=== PATIENT | female | born 1940 | race Two or more races ===

== ENCOUNTER → 2017-09-01 | Outpatient (CLI) | payer MEDICARE, BC ==
--- NOTE | 2017-09-02 07:01 | USB ---
Reason for exam: clinical finding. Indicated problem(s): pain in the left breast. Physical Findings: Nurse Summary: Left breast palpable lateral 3 o'clock 0.5 x 1cm movable, tender (nurse ts). US Breast LT Left breast ultrasound includes all four quadrants, the retroareolar region and axilla. Finding demonstrates a 0.4 x 0.4 x 0.3cm oval, mixed lesion at 2 o'clock, multiple oval nodes at 3 o'clock BB, a 0.3 x 0.3 x 0.2cm oval, too small to characterize lesion at 4 o'clock and a duct estasia at post nipple. These results were verbally communicated with the patient and result sheet given to the patient on 09/01/17. ASSESSMENT: Benign, BI-RAD 2 RECOMMENDATION: Routine screening mammogram of both breasts. Back on schedule. Due now, patient was due March 2017. Manage patient on a clinical basis.
== END | disposition home or self-care (01) ==
LOC: RADUSWWP 15:21
PROVIDERS: ATTEND Surgery
DX: N64.4 Mastodynia (principal)

== ENCOUNTER → 2018-06-07 | Outpatient (CLI) | payer MEDICARE, BC ==
--- NOTE | 2018-06-07 13:55 | MR ---
EXAMINATION TYPE: MR brain wo/w con DATE OF EXAM: 06/07/2018 COMPARISON: None HISTORY: SYNCOPE TECHNIQUE: Multiplanar, multisequence images of the brain and brainstem is performed without and with IV contras t, utilizing 11 mL intravenous Gadavist . FINDINGS: Diffusion weighted images demonstrate no evidence of a recent infarct or other diffusion ab normality. There is no extra-axial fluid collection. There are scattered and confluent hyperintensit ies on inversion recovery T2-weighted sequences within the periventricular, pericallosal, subcortical and juxtacortical white matter, and within the pavel. Approximately 50 lesions are present. The ventr icular system and cisternal spaces are normal in size and appearance. The brain volume is age approp riate, cortical atrophy is likely age-related. Midline structures demonstrate some possible thinning of the corpus callosum. The craniocervical micheal ction appears within normal limits. Post contrast images demonstrate no abnormal enhancement. The du ral venous sinuses appear patent. The visualized sinuses are clear and the globes are intact. IMPRESSION: Nonspecific white matter demyelination could be due to chronic small vessel ischemic damon ge. Age-related atrophy.
== END ==
LOC: RADMRIMAIN 12:04
PROVIDERS: ATTEND Family Medicine
DX: G31.1 Senile degeneration of brain, not elsewhere classified (principal); D35.2 Benign neoplasm of pituitary gland; G37.8 Other specified demyelinating diseases of central nervous system
CPT/HCPCS: 70553; A9581

== ENCOUNTER → 2018-06-07 | Outpatient (CLI) | payer MEDICARE, BC ==
--- NOTE | 2018-06-07 13:44 | MM ---
Reason for exam: additional evaluation requested from prior study. History: Patient history of other cancer and is nulliparous. Benign excisional biopsy of the left breast, 2007. Physical Findings: Nurse did not find any significant physical abnormalities on exam. MG 3D Diag Mammo W/Cad KD Bilateral CC and MLO view(s) were taken. Technologist: Maribel Ragsdale, RT (R)(M) Prior study comparison: September 01, 2017, left breast US breast LT. The breast tissue is heterogeneously dense. This may lower the sensitivity of mammography. No suspicious abnormality. These results were verbally communicated with the patient and result sheet given to the patient on 06/07/18. ASSESSMENT: Incomplete: need additional imaging evaluation, BI-RAD 0 RECOMMENDATION: Ultrasound of the left breast. (lateral for pain)
--- NOTE | 2018-06-07 13:49 | USB ---
Reason for exam: additional evaluation requested from abnormal screening. History: Patient history of other cancer and is nulliparous. Benign excisional biopsy of the left breast, 2007. US Breast Limited LT Left limited breast ultrasound including focal area of concern, retroareolar and axilla demonstrates a 4 x 2 x 4mm oval, cystic, mixed lesion at 2 o'clock, a 3mm calcification at 3 o'clock, a 3 x 2 x 3mm cystic lesion at 4 o'clock, a 5 x 3 x 3mm irregular, hypoechoic mass at 4 o'clock and duct ectasia. Node noted at left axilla. These results were verbally communicated with the patient and result sheet given to the patient on 06/07/18. ASSESSMENT: Suspicious, BI-RAD 4 RECOMMENDATION: Ultrasound core biopsy of the left breast. Called Dr. Jane with mammographic findings and has scheduled an appointment for the patient for 06/10/18 at 3:[address] Price. PRELIMINARY REPORT CALLED AND FAXED TO DR. PRICE ON 06/07/18.
== END ==
LOC: RADMAMWWP 09:53
PROVIDERS: ATTEND Family Medicine
DX: R92.8 Other abnormal and inconclusive findings on diagnostic imaging of breast (principal)
CPT/HCPCS: 77066; 76642; G0279; 77062

== ENCOUNTER → 2018-06-29 | Day surgery (SDC) | payer MEDICARE, BC ==
[2018-06-29 11:49] VITALS: RESP 16; BMI 43.9
[2018-06-29 13:46] VITALS: BP 106/56; PULSE 60; TEMP 97.9
--- NOTE | 2018-06-29 14:18 | USB ---
EXAMINATION TYPE: US biopsy breast VAD LT, MG diagnostic mammo LT wo CAD DATE OF EXAM: 06/29/2018 CLINICAL HISTORY: R92.8 ABN Mammogram. TECHNIQUE: Ultrasound guided core biopsy of left breast. COMPARISON: 09/01/2017 FINDINGS: The procedure of ultrasound guided core biopsy was explained to the patient. Benefits, alt ernatives, and risks were discussed. An informed consent was then obtained. Preprocedural timeout w as performed. The patient was placed in supine positioning for imaging and for the procedure. The overlying skin w as prepped and draped in usual sterile fashion. 9 cc of lidocaine buffered with bicarbonate was used as anesthetic into the skin and subcutaneous tissue up to a 5 x 3 x 3 mm irregular hypoechoic mass at the 4:00 location within the left breast. Under ultrasound guidance, a 12-gauge vacuum assisted biopsy gun device was used to obtain four sampl es. Following this, a coil-shaped biopsy marker was left in mass. The patient tolerated the procedure well without any immediate complication. The patient was kept in the radiology department for short stay after the procedure and then discharged home in stable condi tion. IMPRESSION: Successful, uncomplicated ultrasound guided core biopsy of an intermediate suspicion 5 mm mass at the 4:00 position in the left breast, full pathology results to follow.
== END ==
LOC: RADUSWWP 11:12
PROVIDERS: ATTEND Surgery
DX: N60.92 Unspecified benign mammary dysplasia of left breast (principal); N60.32 Fibrosclerosis of left breast; Z91.048 Other nonmedicinal substance allergy status
CPT/HCPCS: 88305; 77065; 19083; A4648; J2001

== ENCOUNTER → 2019-05-30 | Outpatient (CLI) | payer MEDICARE, BC ==
--- NOTE | 2019-05-31 07:34 | MM ---
Reason for exam: additional evaluation requested from prior study. Last mammogram was performed 11 months ago. History: Patient is postmenopausal, history of other cancer, and is nulliparous. Benign US biopsy breast VAD LT of the left breast, June 29, 2018. Benign excisional biopsy of the left breast, 2007. Physical Findings: Nurse Summary: less than 0.5cm nodule in the left breast at 3 o'clock (nurse kp). MG 3D Diag Mammo W/Cad LT CC, MLO, and XCCL view(s) were taken of the left breast. Prior study comparison: June 29, 2018, left breast MG diagnostic mammo LT wo CAD. June 07, 2018, bilateral MG 3d diag mammo w/cad KD. The breast tissue is heterogeneously dense. This may lower the sensitivity of mammography. Benign appearing calcifications in the left breast. No suspicious abnormality. Left biopsy marker noted. These results were verbally communicated with the patient and result sheet given to the patient on 05/30/19. ASSESSMENT: Incomplete: need additional imaging evaluation, BI-RAD 0 RECOMMENDATION: Ultrasound of the left breast. (upper outer quadrant regarding pain)
--- NOTE | 2019-05-31 07:36 | USB ---
Reason for exam: clinical finding. History: Patient is postmenopausal, history of other cancer, and is nulliparous. Benign US biopsy breast VAD LT of the left breast, June 29, 2018. Benign excisional biopsy of the left breast, 2007. Indicated problem(s): pain in the left breast. US Breast Limited LT Left limited breast ultrasound including focal area of concern, retroareolar and axilla demonstrates a 0.4 x 0.3 x 0.2cm cystic lesion at 2 o'clock, seen on prior (prior 0.4 x 0.2 x 0.4cm). These results were verbally communicated with the patient and result sheet given to the patient on 05/30/19. ASSESSMENT: Benign, BI-RAD 2 RECOMMENDATION: Routine screening mammogram of both breasts in 1 year.
== END | disposition home or self-care (01) ==
LOC: RADMAMWWP 14:08
PROVIDERS: ATTEND Surgery
DX: N63.20 Unspecified lump in the left breast, unspecified quadrant (principal); R92.8 Other abnormal and inconclusive findings on diagnostic imaging of breast
CPT/HCPCS: 77065; 76642; G0279; 77061

== ENCOUNTER → 2020-09-19 | Outpatient (CLI) | payer MEDICARE ==
--- NOTE | 2020-09-24 08:21 | MM ---
Reason for exam: screening (asymptomatic). Last mammogram was performed 1 year and 4 months ago. History: Patient is postmenopausal, history of other cancer, and is nulliparous. Benign US biopsy breast VAD LT of the left breast, June 29, 2018. Benign excisional biopsy of the left breast, 2007. Physical Findings: A clinical breast exam by your physician is recommended on an annual basis and results should be correlated with mammographic findings. MG 3D Screening Mammo W/Cad Bilateral CC and MLO view(s) were taken. Prior study comparison: May 30, 2019, left breast MG 3d diag mammo w/cad LT. June 07, 2018, bilateral MG 3d diag mammo w/cad DK. The breast tissue is heterogeneously dense. This may lower the sensitivity of mammography. Previous mammotome biopsy in the left breast. A few benign oil cyst calcifications are redemonstrated. No significant changes when compared with prior studies. ASSESSMENT: Benign, BI-RAD 2 RECOMMENDATION: Routine screening mammogram of both breasts in 1 year.
== END | disposition home or self-care (01) ==
LOC: RADMAMWWP 13:09
PROVIDERS: ATTEND Family Medicine
DX: Z12.31 Encounter for screening mammogram for malignant neoplasm of breast (principal)
CPT/HCPCS: 77063; 77067

== ENCOUNTER → 2021-10-31 | Outpatient (CLI) | payer MEDICARE ==
--- NOTE | 2021-11-01 11:50 | MM ---
Reason for exam: screening (asymptomatic). Last mammogram was performed 1 year and 1 month ago. History: Patient is postmenopausal, history of other cancer, and is nulliparous. Benign US biopsy breast VAD LT of the left breast, June 29, 2018. Benign excisional biopsy of the left breast, 2007. Physical Findings: A clinical breast exam by your physician is recommended on an annual basis and results should be correlated with mammographic findings. MG 3D Screening Mammo W/Cad Bilateral CC and MLO view(s) were taken. Prior study comparison: September 19, 2020, bilateral MG 3d screening mammo w/cad. May 30, 2019, left breast MG 3d diag mammo w/cad LT. The breast tissue is heterogeneously dense. This may lower the sensitivity of mammography. Stable benign calcifications. Focal asymmetry upper outer right breast zone B. This finding is changed when compared with previous exams. ASSESSMENT: Incomplete: need additional imaging evaluation, BI-RAD 0 RECOMMENDATION: Special view mammogram of the right breast. If lesion persists on supplemental views, image directed ultrasound is recommended. [facility] will attempt to contact patient to return for supplemental views and ultrasound if indicated.
== END | disposition home or self-care (01) ==
LOC: RADMAMWWP 13:19
PROVIDERS: ATTEND Family Medicine
DX: Z12.31 Encounter for screening mammogram for malignant neoplasm of breast (principal); Z78.0 Asymptomatic menopausal state
CPT/HCPCS: 77063; 77067

== ENCOUNTER → 2021-11-06 | Outpatient (CLI) | payer MEDICARE ==
--- NOTE | 2021-11-07 10:01 | MM ---
Reason for exam: additional evaluation requested from abnormal screening. Last mammogram was performed less than 1 month ago. History: Patient is postmenopausal, history of other cancer, and is nulliparous. Benign US biopsy breast VAD LT of the left breast, June 29, 2018. Benign excisional biopsy of the left breast, 2007. Physical Findings: A clinical breast exam by your physician is recommended on an annual basis and results should be correlated with mammographic findings. MG 3D Work Up W/Cad RT Spot compression CC, spot compression MLO, ML, and LM view(s) were taken of the right breast. Prior study comparison: October 31, 2021, bilateral MG 3d screening mammo w/cad. September 19, 2020, bilateral MG 3d screening mammo w/cad. The breast tissue is heterogeneously dense. This may lower the sensitivity of mammography. Focal asymmetry upper outer quadrant right breast 6cm from nipple measuring 1.2cm. These results were verbally communicated with the patient and result sheet given to the patient on 11/06/21. ASSESSMENT: Incomplete: need additional imaging evaluation, BI-RAD 0 RECOMMENDATION: Ultrasound of the right breast.
--- NOTE | 2021-11-07 10:03 | USB ---
Reason for exam: additional evaluation requested from abnormal screening. History: Patient is postmenopausal, history of other cancer, and is nulliparous. Benign US biopsy breast VAD LT of the left breast, June 29, 2018. Benign excisional biopsy of the left breast, 2007. US Breast Workup Limited RT Right limited breast ultrasound including focal area of concern, retroareolar and axilla demonstrates no cystic or solid lesion seen. Scanned 9-12 o'clock dense tissue. These results were verbally communicated with the patient and result sheet given to the patient on 11/06/21. ASSESSMENT: Probably benign, BI-RAD 3 RECOMMENDATION: Follow-up diagnostic mammogram of the right breast in 6 months.
== END | disposition home or self-care (01) ==
LOC: RADMAMWWP 14:03
PROVIDERS: ATTEND Family Medicine
DX: R92.8 Other abnormal and inconclusive findings on diagnostic imaging of breast (principal); Z78.0 Asymptomatic menopausal state
CPT/HCPCS: 77065; 76642; G0279; 77061

== ENCOUNTER 2022-04-10 14:15 | Inpatient (IN) | payer MEDICARE ==
[2022-04-10] MEDS ORDERED: SODIUM CHLORIDE 0.9% 500 ML 500 ML IV STA ×2 (14:40→18:24)
[2022-04-10 15:02] LABS: Partial Thromboplastin Time 27.7 sec (22.0-30.0); Prothrombin Time 11.2 sec (9.0-12.0)
[2022-04-10 15:05] LABS: Albumin 4.6 g/dL (3.5-5.0); Calcium 8.9 mg/dL (8.4-10.2); Magnesium 1.5 mg/dL (1.6-2.3); Potassium 4.1 mmol/L (3.5-5.1); Total Bilirubin 0.8 mg/dL (0.2-1.3); Total Protein 6.9 g/dL (6.3-8.2)
[2022-04-10 15:08] LABS: Basophils # (A) 0.1 k/uL (0-0.2); Basophils % (A) 1 %; Eosinophils # (A) 0.3 k/uL (0-0.7); Eosinophils % (A) 4 %; HCT 36.3 % (34.0-46.0); Lymphocytes # (A) 1.6 k/uL (1.0-4.8); Lymphocytes % (A) 23 %; MCH 30.4 pg (25.0-35.0); MCHC 33.1 g/dL (31.0-37.0); Mean Platelet Volume 11.1; Monocytes # (A) 0.3 k/uL (0-1.0); Monocytes % (A) 4 %; Neutrophils # (A) 4.7 k/uL (1.3-7.7); Neutrophils % (A) 68 %; Platelet Count 226 k/uL (150-450); RBC 3.95 m/uL (3.80-5.40); RDW 13.8 % (11.5-15.5)
--- NOTE | 2022-04-10 15:38 | ED ---
Weakness HPI - General Source: patient, RN notes reviewed Mode of arrival: ambulatory Limitations: no limitations <Mahesh Rosario - Last Filed: 04/10/22 15:37> <Jose L Ramirez - Last Filed: 04/10/22 18:32> - General Chief complaint: Weakness Stated complaint: dizziness,falls Time Seen by Provider: 04/10/22 14:30 - History of Present Illness Initial comments: 82-year-old female presents emergency Department via EMS chief complaint of fall. Patient has felt very weak today, fell over she's unsure how this happe trey. Denies having any LOC. She did strike her head as you any blood thinners. Patient states she has no extremity injury she denies chest pain or shortness breath this time she has any recent medication changes no fevers or chills no cough or cold like symptoms. (Mahesh Rosario) Patient overall is not a great historian. Daughter shows up later and relates that patient has been very weak over the past 3 days. She apparently has had some slight confusion at times as well. Daughter states that her speech seems minimally slurred as well. This seems to be progressively worsening. She did fall twice today and apparently did hit her head. She does relate urinary fr equency related to her diabetes insipidus which is chronic for her. She denies any dysuria or other urinary symptoms. (Jose L Ramirez) - Related Data Home Medications Medication Instructions Recorded Confirmed Desmopressin Acetate [DDAVP] 0.3 mg PO HS 06/16/18 06/29/18 Gabapentin 800 mg PO BID 06/16/18 06/29/18 Levothyroxine Sodium [Synthroid] 75 mcg PO DAILY 06/16/18 06/29/18 Simvastatin 80 mg PO DAILY 06/16/18 06/29/18 buPROPion [Wellbutrin] 300 mg PO DAILY 06/16/18 06/29/18 cloNIDine HCL [Catapres] 0.1 mg PO HS 06/16/18 06/29/18 metFORMIN HCL [Glucophage] 1,000 mg PO DAILY 06/16/18 06/29/18 Allergies Allergy/AdvReac Type Severity Reaction Status Date / Time adhesive tape Allergy Rash/Hives Verified 04/10/22 14:25 Review of Systems ROS Other: All systems not noted in ROS Statement are negative. <Mahesh Rosario - Last Filed: 04/10/22 15:37> ROS Other: All systems not noted in ROS Statement are negative. <Jose L Ramirez - Last Filed: 04/10/22 18:32> ROS Statement: Those systems with pertinent positive or pertinent negative responses have been documented in the HPI. 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 thyroidectomy, benign excisional left breast 2008 Past Anesthesia/Blood Transfusion Reactions: No Reported Reaction Past Psychological History: No Psychological Hx Reported Smoking Status: Never smoker Past Alcohol Use History: None Reported Past Drug Use History: None Reported <Mahesh Rosario Shabnam - Last Filed: 04/10/22 15:37> General Exam Limitations: no limitations General appearance: alert, in no apparent distress Head exam: Present: atraumatic, normocephalic, normal inspection Eye exam: Present: normal appearance, PERRL, EOMI. Absent: scleral icterus, conjunctival injection, periorbital swelling ENT exam: Present: normal exam, normal oropharynx, mucous membranes moist Neck exam: Present: normal inspection. Absent: tenderness, meningismus, full ROM (Patient in c-collar), lymphadenopathy Respiratory exam: Present: normal lung sounds bilaterally. Absent: respiratory distress, wheezes, rales, rhonchi, stridor Cardiovascular Exam: Present: normal rhythm, bradycardia, normal heart sounds. Absent: regular rate, systolic murmur, diastolic murmur, rubs, gallop, clicks GI/Abdominal exam: Present: soft, normal bowel sounds. Absent: distended, tenderness, guarding, rebound, rigid Neurological exam: Present: alert, oriented X3, CN II-XII intact, reflexes normal. Absent: motor sensory deficit Skin exam: Present: warm, dry, intact, normal color. Absent: rash <Mahesh Rosario Shabnam - Last Filed: 04/10/22 15:37> Course Vital Signs 04/10/22 04/10/22 14:19 16:57 Temperature 98.0 F Pulse Rate 53 L 49 L Respiratory 18 16 Rate Blood Pressure 113/67 127/75 O2 Sat by Pulse 98 95 Oximetry Medical Decision Making - Lab Data Result diagrams: 04/10/22 14:44 04/10/22 14:44 <Mahesh Rosario - Last Filed: 04/10/22 15:37> - Lab Data Result diagrams: 04/10/22 14:44 04/10/22 14:44 <Jose L Ramirez - Last Filed: 04/10/22 18:32> - Medical Decision Making The patient was seen and examined. Report was received from physician urgent care physician assistant as well. The EKG shows what I believe is a junctional bradycardia at a rate of 52. There are multiple PVCs noted. Upon watching her on the heart monitor, her heart rate is ranging between about 40 and 45 bpm. It does not appear as though she is on any beta blockers or calcium channel blockers. She does have evidence of urinary tract infection as well as multiple electrolyte abnormali ties on laboratory analysis. Rocephin is initiated. IV fluid hydration is given. Repeat EKG is ordered. It appears as though she will require admission to the hospital for further treatment. It is felt as though she has a urinary tract infection and this likely is causing her symptomatology. Her computed tomography scan of her brain and cervical spine are negative for any evidence of fracture. The bradycardia certainly could be playing into her weakness and falls as well. Case is discussed with Dr. Jane and he is agreeable with admission with cardiology to consult. (Jose L Ramirez) - Lab Data Lab Results 04/10/22 04/10/22 04/10/22 Range/Units 14:44 14:44 14:44 WBC 7.0 (3.8-10.6) k/uL RBC 3.95 (3.80-5.40) m/uL Hgb 12.0 (11.4-16.0) gm/dL Hct 36.3 (34.0-46.0) % MCV 92.0 (80.0-100.0) fL MCH 30.4 (25.0-35.0) pg MCHC 33.1 (31.0-37.0) g/dL RDW 13.8 (11.5-15.5) % Plt Count 226 (150-450) k/uL MPV 11.1 Neutrophils % 68 % Lymphocytes % 23 % Monocytes % 4 % Eosinophils % 4 % Basophils % 1 % Neutrophils # 4.7 (1.3-7.7) k/uL Lymphocytes # 1.6 (1.0-4.8) k/uL Monocytes # 0.3 (0-1.0) k/uL Eosinophils # 0.3 (0-0.7) k/uL Basophils # 0.1 (0-0.2) k/uL PT 11.2 (9.0-12.0) sec INR 1.0 (<1.2) APTT 27.7 (22.0-30.0) sec Sodium 132 L (137-145) mmol/L Potassium 4.1 (3.5-5.1) mmol/L Chloride 91 L (98-107) mmol/L Carbon Dioxide 29 (22-30) mmol/L Anion Gap 12 mmol/L BUN 23 H (7-17) mg/dL Creatinine 1.09 H (0.52-1.04) mg/dL Est GFR (CKD-EPI)AfAm 55 (>60 ml/min/1.73 sqM) Est GFR (CKD-EPI)NonAf 48 (>60 ml/min/1.73 sqM) Glucose 112 H (74-99) mg/dL Plasma Lactic Acid Evangelist (0.7-2.0) mmol/L Calcium 8.9 (8.4-10.2) mg/dL Magnesium 1.5 L (1.6-2.3) mg/dL Total Bilirubin 0.8 (0.2-1.3) mg/dL AST 69 H (14-36) U/L ALT 40 H (4-34) U/L Alkaline Phosphatase 59 (38-126) U/L Troponin I (0.000-0.034) ng/mL Total Protein 6.9 (6.3-8.2) g/dL Albumin 4.6 (3.5-5.0) g/dL Urine Color Urine Appearance (Clear) Urine pH (5.0-8.0) Ur Specific [place] (1.001-1.035) Urine Protein (Negative) Urine Glucose (UA) (Negative) Urine Ketones (Negative) Urine Blood (Negative) Urine Nitrite (Negative) Urine Bilirubin (Negative) Urine Urobilinogen (<2.0) mg/dL Ur Leukocyte Esterase (Negative) Urine RBC (0-5) /hpf Urine WBC (0-5) /hpf Ur Squamous Epith Cells (0-4) /hpf Urine Mucus (None) /hpf 04/10/22 04/10/22 04/10/22 Range/Units 14:44 14:44 15:38 WBC (3.8-10.6) k/uL RBC (3.80-5.40) m/uL Hgb (11.4-16.0) gm/dL Hct (34.0-46.0) % MCV (80.0-100.0) fL MCH (25.0-35.0) pg MCHC (31.0-37.0) g/dL RDW (11.5-15.5) % Plt Count (150-450) k/uL MPV Neutrophils % % Lymphocytes % % Monocytes % % Eosinophils % % Basophils % % Neutrophils # (1.3-7.7) k/uL Lymphocytes # (1.0-4.8) k/uL Monocytes # (0-1.0) k/uL Eosinophils # (0-0.7) k/uL Basophils # (0-0.2) k/uL PT (9.0-12.0) sec INR (<1.2) APTT (22.0-30.0) sec Sodium (137-145) mmol/L Potassium (3.5-5.1) mmol/L Chloride (98-107) mmol/L Carbon Dioxide (22-30) mmol/L Anion Gap mmol/L BUN (7-17) mg/dL Creatinine (0.52-1.04) mg/dL Est GFR (CKD-EPI)AfAm (>60 ml/min/1.73 sqM) Est GFR (CKD-EPI)NonAf (>60 ml/min/1.73 sqM) Glucose (74-99) mg/dL Plasma Lactic Acid Evangelist 1.0 (0.7-2.0) mmol/L Calcium (8.4-10.2) mg/dL Magnesium (1.6-2.3) mg/dL Total Bilirubin (0.2-1.3) mg/dL AST (14-36) U/L ALT (4-34) U/L Alkaline Phosphatase (38-126) U/L Troponin I <0.012 (0.000-0.034) ng/mL Total Protein (6.3-8.2) g/dL Albumin (3.5-5.0) g/dL Urine Color Yellow Urine Appearance Cloudy H (Clear) Urine pH 5.5 (5.0-8.0) Ur Specific [place] 1.024 (1.001-1.035) Urine Protein Trace H (Negative) Urine Glucose (UA) Negative (Negative) Urine Ketones Negative (Negative) Urine Blood Negative (Negative) Urine Nitrite Negative (Negative) Urine Bilirubin Negative (Negative) Urine Urobilinogen <2.0 (<2.0) mg/dL Ur Leukocyte Esterase Large H (Negative) Urine RBC 5 (0-5) /hpf Urine WBC 12 H (0-5) /hpf Ur Squamous Epith Cells 4 (0-4) /hpf Urine Mucus Rare H (None) /hpf Disposition <Mahesh Rosario - Last Filed: 04/10/22 15:37> Is patient prescribed a controlled substance at d/c from ED?: No Time of Disposition: 18:32 Decision Date: 04/10/22 Decision Time: 18:32 <Jose L Ramirez - Last Filed: 04/10/22 18:32> Clinical Impression: Hyponatremia, Dehydration, Urinary tract infection, Weakness, Multiple falls, Bradycardia, Hypochloremia, Head injury, Hypomagnesemia Disposition: ADMITTED IP TO THIS [facility] Condition: Fair Referrals: Claudette Jane DO [Primary Care Provider] - 1-2 days
--- NOTE | 2022-04-10 15:54 | CT ---
EXAMINATION TYPE: CT cervical spine wo con CT DLP: 556.2 mGycm, Automated exposure control for dose reduction was used. DATE OF EXAM: 04/10/2022 3:49 PM COMPARISON: None. CLINICAL INDICATION:Female, 82 years old with history of fall,trauma; PHH, falls TECHNIQUE: Axial CT images from the skull base to the inferior aspect of T2 we obtained without intra venous contrast. Coronal and sagittal reformatted images were also reviewed. FINDINGS: Fracture: None. Osseous structures: Multilevel degenerative disc disease changes with endplate spurring and disc oste ophyte complex's. Vertebral alignment: Alignment within normal limits. Spinal canal/Neural Foramina: No evidence of significant spinal canal narrowing. No evidence for sign ificant neural foraminal stenosis. Neck soft tissues: Prevertebral soft tissues are within normal limits. Other: The airway is patent. The lung apices are clear. IMPRESSION: 1. No evidence of cervical spine fracture. 2. Mild multilevel degenerative disc disease.
[2022-04-10 16:15] LABS: Appearance,Urine Cloudy (Clear); Bilirubin,Urine Negative (Negative); Blood,Urine Negative (Negative); Color,Urine Yellow; Glucose,Urine (UA) Negative (Negative); Ketones,Urine Negative (Negative); Leukocyte Esterase,Urine Large (Negative); Mucus,Urine Rare /hpf; Nitrite,Urine Negative (Negative); PH, Urine 5.5 (5.0-8.0); Protein,Urine Trace (Negative); RBC,Urine 5 /hpf (0-5); Specific Gravity,Urine 1.024 (1.001-1.035); Squamous Epithelial Cell,Urine 4 /hpf (0-4); Urobilinogen,Urine <2.0 mg/dL (<2.0); WBC,Urine 12 /hpf (0-5)
--- NOTE | 2022-04-10 16:26 | XR ---
EXAMINATION TYPE: XR chest 2V DATE OF EXAM: 04/10/2022 4:10 PM COMPARISON: None TECHNIQUE: XR chest 2V Frontal and lateral views of the chest. CLINICAL INDICATION:Female, 82 years old with history of Weakness; FINDINGS: Lungs/Pleura: There is no evidence of pleural effusion, focal consolidation, or pneumothorax. Pulmonary vascularity: Pulmonary vascular congestion. Heart/mediastinum: Cardiomediastinal silhouette is enlarged and stable. Musculoskeletal: No acute osseous pathology. IMPRESSION: Cardiomegaly and mild pulmonary vascular congestion. Correlate with BNP for congestive heart failure.
--- NOTE | 2022-04-10 16:57 | CT ---
EXAMINATION TYPE: CT brain wo con CT DLP: 1153.4 mGycm, Automated exposure control for dose reduction was used. DATE OF EXAM: 04/10/2022 4:50 PM COMPARISON: MR brain 06/07/2018. CLINICAL INDICATION:Female, 82 years old with history of pain, fall TECHNIQUE: Brain: Axial CT images of the brain were obtained with coronal and sagittal reformats created and rev iewed. Contrast used: None. Oral contrast used: None. FINDINGS: Brain: Extra-axial spaces: No abnormal extra-axial fluid collections. Ventricular system: Dilatation in proportion to cerebral atrophy. Cerebral parenchyma: No acute intraparenchymal hemorrhage or mass effect. The sears-white junction is well differentiated. Scattered hypoattenuating areas are seen within the white matter. Cerebellum: Unremarkable. Mass effect: No evidence of midline shift. Intracranial vasculature: Atherosclerotic calcifications of the intracranial vessels. Soft tissues: Normal. Calvarium/osseous structures: No depressed skull fracture. Paranasal sinuses and mastoid air cells: Mild scattered paranasal sinus disease. Visualized orbits: Orbital contents are intact. IMPRESSION: 1. No acute intracranial process. 2. Nonspecific white matter changes, likely secondary to chronic small vessel ischemic disease.
[2022-04-10] MEDS ORDERED: NALOXONE 0.4 MG/ML 1 ML VIAL IV PRN (19:13)
[2022-04-10] MEDS ORDERED: ONDANSETRON 4 MG/2 ML VIAL IVP PRN (19:13)
[2022-04-10] MEDS ORDERED: ATROPINE SULFATE 0.1 MG/ML 10ML SYRINGE IV PRN (19:18)
[2022-04-10] MEDS: SODIUM CHLORIDE 0.9% 1,000 ML IV SCH (19:59)
[2022-04-10] MEDS: MAGNESIUM SULFATE-D5W PMX 1 GM in DEXTROSE/WATER 1 100ML.BAG IVPB SCH ×2 (19:59→21:08)
[2022-04-10] MEDS: metFORMIN 500 MG TAB PO SCH (23:59)
[2022-04-11] MEDS: buPROPion XL 300 MG TAB.ER.24H PO SCH (06:55)
[2022-04-11] MEDS: DULoxetine HCL 60 MG CAPSULE.DR PO SCH (06:55)
[2022-04-11] MEDS ORDERED: LEVOTHYROXINE 125 MCG TAB PO SCH (08:45)
[2022-04-11] MEDS: SODIUM CHLORIDE 0.9% 1,000 ML IV SCH ×2 (08:56→15:53)
[2022-04-11] MEDS: ENOXAPARIN 40 MG/0.4 ML SYRINGE SQ SCH (08:56)
[2022-04-11] MEDS ORDERED: PANTOPRAZOLE 40 MG/10 ML VIAL IV SCH (09:00)
[2022-04-11 10:13] LABS: T4, Free (Free Thyroxine) <0.07 ng/dL (0.78-2.19)
[2022-04-11 10:29] LABS: Basophils # (A) 0.1 k/uL (0-0.2); Basophils % (A) 1 %; Eosinophils # (A) 0.2 k/uL (0-0.7); Eosinophils % (A) 3 %; HCT 35.3 % (34.0-46.0); HGB 11.7 gm/dL (11.4-16.0); Lymphocytes # (A) 1.4 k/uL (1.0-4.8); Lymphocytes % (A) 21 %; MCH 30.9 pg (25.0-35.0); MCHC 33.2 g/dL (31.0-37.0); Mean Platelet Volume 9.7; Monocytes # (A) 0.3 k/uL (0-1.0); Monocytes % (A) 5 %; Neutrophils # (A) 4.7 k/uL (1.3-7.7); Neutrophils % (A) 70 %; Platelet Count 189 k/uL (150-450); RDW 13.9 % (11.5-15.5); WBC 6.7 k/uL (3.8-10.6)
[2022-04-11 10:41] LABS: Calcium 7.8 mg/dL (8.4-10.2); Magnesium 1.7 mg/dL (1.6-2.3); Potassium 3.3 mmol/L (3.5-5.1)
[2022-04-11] MEDS ORDERED: Magnesium Replacement Protocol 1 EACH MISC MISCELLANE PRN (10:53)
[2022-04-11] MEDS ORDERED: Potassium Replacement Protocol 1 EACH MISC MISCELLANE PRN ×2 (10:53→20:03)
--- NOTE | 2022-04-11 11:17 | CA ---
Transthoracic Echo Report Name: Livia Moura Age: 82 Gender: F : 1940 Exam Date: 04/11/2022 10:10 Exam Location: [facility] Ht (in): 62 Wt (lb): 241 Ordering Physician: Shraddha Luis Attending/Referring Phys: [id number], Janelle Filtrose Crusher Althea Avina, CARLOS ALBERTO Procedure CPT: Indications: LV function, bradycardia Cardiac Hx: Technical Quality: Fair Contrast 1: Total Dose (mL): Contrast 2: Total Dose (mL): MEASUREMENTS (Male / Female) Normal Values 2D ECHO LV Diastolic Diameter PLAX 5.1 cm 4.2 - 5.9 / 3.9 - 5.3 cm LV Systolic Diameter PLAX 3.3 cm IVS Diastolic Thickness 1.1 cm 0.6 - 1.0 / 0.6 - 0.9 cm LVPW Diastolic Thickness 1.1 cm 0.6 - 1.0 / 0.6 - 0.9 cm LV Relative Wall Thickness 0.4 RV Internal Dim ED PLAX 3.4 cm LA Systolic Diameter LX 3.3 cm 3.0 - 4.0 / 2.7 - 3.8 cm LA Volume 45.4 cm??? 18 - 58 / 22 - 52 cm??? M-MODE Aortic Root Diameter MM 2.7 cm DOPPLER AV Peak Velocity 115.4 cm/s AV Peak Gradient 5.3 mmHg MV Area PHT 1.7 cm??? Mitral E Point Velocity 68.0 cm/s Mitral A Point Velocity 86.9 cm/s Mitral E to A Ratio 0.8 MV Deceleration Time 444.7 ms MV E' Velocity 5.9 cm/s Mitral E to MV E' Ratio 11.5 FINDINGS Left Ventricle Left ventricular ejection fraction is estimated at 60-65 %. Left ventricular cavity size normal. Borderline left ventricular hypertrophy. Right Ventricle Mild right ventricular dilatation. No TR unable to estimate the right ventricular systolic pressure. Right Atrium Normal right atrial size. Left Atrium Normal left atrial size. No evidence for an atrial septal defect. Mitral Valve Structurally normal mitral valve. Trace mitral regurgitation. Aortic Valve Trileaflet aortic valve. No aortic valve stenosis or regurgitation. Tricuspid Valve Structurally normal tricuspid valve. Pulmonic Valve Pulmonic valve not well visualized. Pericardium Normal pericardium. No pericardial effusion. Aorta Normal size aortic root and proximal ascending aorta. CONCLUSIONS Normal LV systolic function Previewed by: Dr. Gutierrez Ulrich MD (Electronically Signed) Final Date: 11 April 2022 11:17
[2022-04-11 11:48] LABS: Glucose,Whole Blood 106 mg/dL (70-110)
--- NOTE | 2022-04-11 12:17 | P.CRDCN ---
History of Present Illness History of present illness: HISTORY OF PRESENT ILLNESS: This is a 82-year-old female with a past medical history significant for diabetes insipidus, hypothyroidism, diabetes, hyperlipidemia, and depression. Patient does not follow with a drug safety associate. We have been asked to see the patient in consultation for bradycardia. Patient examined at the bedside. Patient states she presented to the hospital after suffering 2 falls yesterday. Patient states her first fall happened when she was getting out of bed and was walking. She states that she knew she was going to lose her balance and she subsequently fell. She denies losing consciousness. She states later on in the day she was walking to the bathroom and once again began to feel weak and fell. She denies loss of consciousness at that time as well. She denies any chest pain or pressure. Denies any shortness of breath. The patient was found to be bradycardic with a heart rate in the 40s. EKG obtained from her primary care office dated 2013 which demonstrated sinus bradycardia with diffuse T-wave inversions. Telemetry this morning reveals sinus mechanism with heart rate between 5060. * EKG reveals sinus bradycardia with a heart rate of 48. EKG with diffuse T- wave inversions, unchanged from patient's EKG in 2013 from her PCP office * Chest xray cardiomegaly and mild pulmonary vascular congestion. * Laboratory data: WBC 6.7. Hemoglobin 11.6. Platelet count 189. Sodium 131. Potassium 3.3. BUN 15. Creatinine 0.92. Magnesium 1.7. Troponin negative 2. * Current home cardiac medications include Catapres 0.1 mg daily and simvastatin 80 mg daily. * Echocardiogram obtained revealing ejection fraction 60-65%, borderline LVH, mild MR REVIEW OF SYSTEMS: At the time of my exam: CONSTITUTIONAL: Denies fever or chills. HEENT: Denies blurred vision, vision changes, or eye pain. Denies hemoptysis CARDIOVASCULAR: Denies chest pain. Denies orthopnea. Denies PND. Denies palpitations RESPIRATORY: Denies shortness of breath. GASTROINTESTINAL: Denies abdominal pain. Denies nausea or vomiting. HEMATOLOGIC: Denies bleeding disorders. GENITOURINARY: Denies any blood in urine. SKIN: Denies pruitis. Denies rash. PHYSICAL EXAM: VITAL SIGNS: Reviewed. GENERAL: Well-developed in no acute distress. HEENT: Head is normocephalic. Pupils are equal, round. Sclerae anicteric. Mucous membranes of the mouth are moist. Neck supple. No JVD or thyromegaly LUNGS: Respirations even and unlabored. Lungs essentially clear to auscultation bilaterally. HEART: Regular rate and rhythm. S1 and S2 heard. ABDOMEN: Soft. Nondistended. Nontender. EXTREMITIES: Normal range of motion. No clubbing or cyanosis. Peripheral pulses intact. No lower extremity edema NEUROLOGIC: Awake and alert. Oriented x 3. ASSESSMENT: Bradycardia, with no heart block noted, bradycardia dates back to EKG in 2013 from PCP office Status post fall 2 Hyponatremia Hypokalemia Urinary tract infection Hypothyroidism Diabetes Hyperlipidemia Diabetes insipidus Depression PLAN: Continue telemetry monitoring Check TSH Check orthostatic blood pressures Avoid AV dipika blocking agents No indication for pacemaker implantation at this time Further recommendations pending patient's course Nurse practitioner note has been reviewed by physician. Signing provider agrees with the documented findings, assessment, and plan of care. Past Medical History Past Medical History: Cancer, Diabetes Mellitus, Hyperlipidemia, Hypertension, Myocardial Infarction ([place]), Thyroid Disorder Additional Past Medical History / Comment(s): HX. 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 thyroidectomy, benign excisional left breast 2007 Past Anesthesia/Blood Transfusion Reactions: No Reported Reaction Past Psychological History: No Psychological Hx Reported Smoking Status: Never smoker Past Alcohol Use History: None Reported Past Drug Use History: None Reported - Past Family History Mother Family Medical History: Cancer Additional Family Medical History / Comment(s): OVARIAN Father Family Medical History: Myocardial Infarction ([place]) Medications and Allergies Home Medications Medication Instructions Recorded Confirmed Type Desmopressin Acetate [DDAVP] 0.3 mg PO HS 06/16/18 04/11/22 History Simvastatin 80 mg PO DAILY 06/16/18 04/11/22 History metFORMIN HCL [Glucophage] 1,000 mg PO HS 06/16/18 04/11/22 History DULoxetine HCL [Cymbalta] 60 mg PO AC-BRKFST 04/10/22 04/11/22 History Levothyroxine Sodium [Synthroid] 125 mcg PO DAILY 04/10/22 04/11/22 History Pantoprazole Sodium 40 mg PO DAILY 04/10/22 04/11/22 History buPROPion XL [Wellbutrin XL] 300 mg PO AC-BRKFST 04/10/22 04/11/22 History cloNIDine HCL [Catapres] 0.1 mg PO DAILY 04/11/22 04/11/22 History Allergies Allergy/AdvReac Type Severity Reaction Status Date / Time adhesive tape Allergy Rash/Hives Verified 04/10/22 19:47 Physical Exam Vitals: Vital Signs Temp Pulse Pulse Resp BP BP Pulse Ox 04/11/22 04:00 98.4 F 43 L 18 133/78 94 L 04/11/22 02:00 48 L 16 04/11/22 00:00 98.3 F 48 L 16 134/80 93 L 04/10/22 22:53 44 L 16 04/10/22 22:09 97.9 F 44 L 16 127/72 94 L 04/10/22 21:21 97.5 F L 50 L 16 109/70 98 04/10/22 16:57 49 L 16 127/75 95 04/10/22 14:19 98.0 F 53 L 18 113/67 98 Intake and Output 04/10/22 04/11/22 04/11/22 22:59 06:59 14:59 Other: Voiding Method Bedside Commode Bedside Commode Bedpan Bedpan # Voids 1 1 1 # Bowel Movements 1 1 Weight 109.316 kg Results 04/11/22 10:13 04/11/22 10:13 Cardiac Enzymes 04/10/22 04/10/22 04/10/22 Range/Units 14:44 14:44 20:25 AST 69 H (14-36) U/L Troponin I <0.012 <0.012 (0.000-0.034) ng/mL 04/10/22 Range/Units 22:49 AST (14-36) U/L Troponin I <0.012 (0.000-0.034) ng/mL Coagulation 04/10/22 Range/Units 14:44 PT 11.2 (9.0-12.0) sec APTT 27.7 (22.0-30.0) sec CBC 04/10/22 Range/Units 14:44 WBC 7.0 (3.8-10.6) k/uL RBC 3.95 (3.80-5.40) m/uL Hgb 12.0 (11.4-16.0) gm/dL Hct 36.3 (34.0-46.0) % Plt Count 226 (150-450) k/uL Comprehensive Metabolic Panel 04/10/22 Range/Units 14:44 Sodium 132 L (137-145) mmol/L Potassium 4.1 (3.5-5.1) mmol/L Chloride 91 L (98-107) mmol/L Carbon Dioxide 29 (22-30) mmol/L BUN 23 H (7-17) mg/dL Creatinine 1.09 H (0.52-1.04) mg/dL Glucose 112 H (74-99) mg/dL Calcium 8.9 (8.4-10.2) mg/dL AST 69 H (14-36) U/L ALT 40 H (4-34) U/L Alkaline Phosphatase 59 (38-126) U/L Total Protein 6.9 (6.3-8.2) g/dL Albumin 4.6 (3.5-5.0) g/dL Current Medications Generic Name Dose Route Start Last Admin Trade Name Freq PRN Reason Stop Dose Admin Acetaminophen 650 mg 04/10/22 19:13 Acetaminophen Tab 325 Mg Tab PO Q6HR PRN Mild Pain or Fever > 100.5 Atorvastatin Calcium 40 mg 04/11/22 21:00 Atorvastatin 40 Mg Tab PO HS JORGE Atropine Sulfate 0.5 mg 04/10/22 19:18 Atropine Sulfate 0.1 Mg/Ml 10ml Syringe IV Q1H PRN Bradycardia Bupropion HCl 300 mg 04/11/22 07:30 04/11/22 06:55 Bupropion Xl 300 Mg Tab.Er.24h PO 300 mg AC-BRKFST JORGE Administration Desmopressin Acetate 0.3 mg 04/10/22 21:00 04/11/22 00:00 Desmopressin 0.2 Mg Tab PO 0.3 mg HS JORGE Administration Duloxetine HCl 60 mg 04/11/22 07:30 04/11/22 06:55 Duloxetine Hcl 60 Mg Capsule.Dr PO 60 mg AC-BRKFST JORGE Administration Enoxaparin Sodium 40 mg 04/11/22 09:00 Enoxaparin 40 Mg/0.4 Ml Syringe SQ DAILY JORGE Sodium Chloride 1,000 mls @ 100 mls/hr 04/10/22 19:15 04/10/22 19:59 Saline 0.9% IV 100 mls/hr .Q10H JORGE Administration Ceftriaxone Sodium 1 gm/ 50 mls @ 100 mls/hr 04/11/22 09:00 Sodium Chloride IVPB DAILY JORGE Protocol Levothyroxine Sodium 125 mcg 04/11/22 08:45 Levothyroxine 125 Mcg Tab PO DAILY@0630 JORGE Metformin HCl 1,000 mg 04/10/22 21:00 04/10/22 23:59 Metformin 500 Mg Tab PO 1,000 mg HS JORGE Administration Naloxone HCl 0.2 mg 04/10/22 19:13 Naloxone 0.4 Mg/Ml 1 Ml Vial IV Q2M PRN Opioid Reversal Ondansetron HCl 4 mg 04/10/22 19:13 Ondansetron 4 Mg/2 Ml Vial IVP Q8HR PRN Nausea And Vomiting Pantoprazole Sodium 40 mg 04/11/22 09:00 Pantoprazole 40 Mg/10 Ml Vial IV DAILY JORGE Pramipexole Dihydrochloride 0.25 mg 04/11/22 21:00 Pramipexole 0.25 Mg Tab PO HS JORGE Intake and Output 04/10/22 04/11/22 04/11/22 22:59 06:59 14:59 Other: Voiding Method Bedside Commode Bedside Commode Bedpan Bedpan # Voids 1 1 1 # Bowel Movements 1 1 Weight 109.316 kg 04/10/22 14:44 04/10/22 14:44
[2022-04-11] MEDS: MAGNESIUM SULFATE-D5W PMX 1 GM in DEXTROSE/WATER 1 100ML.BAG IVPB SCH ×2 (13:06→15:52)
[2022-04-11] MEDS: POTASSIUM CHLORIDE ER 20 MEQ TAB.ER PO SCH ×3 (13:07→21:46)
[2022-04-11 16:36] LABS: Glucose,Whole Blood 122 mg/dL (70-110)
[2022-04-11] MEDS: DESMOPRESSIN 0.2 MG TAB PO SCH ×2 (20:35)
[2022-04-11] MEDS: metFORMIN 500 MG TAB PO SCH (20:35)
[2022-04-11] MEDS: ATORVASTATIN 40 MG TAB PO SCH (20:35)
[2022-04-11] MEDS: PRAMIPEXOLE 0.25 MG TAB PO SCH (20:35)
[2022-04-11] MEDS: ACETAMINOPHEN TAB 325 MG TAB PO PRN (20:44)
[2022-04-11 20:54] LABS: Glucose,Whole Blood 130 mg/dL (70-110)
--- NOTE | 2022-04-11 23:17 | P.HPIM ---
History of Present Illness H&P Date: 04/11/22 Chief Complaint: falls Livia Moura is a 82 yo F with PMH of diabetes insipidus, hypothyroidism, diabetes, hyperlipidemia and depression who presented to the hospital after suffering 2 falls yesterday. Patient states her first fall happened when she was getting out of bed and was walking. She states that she knew she was going to lose her balance and she subsequently fell. She denies losing consciousness. She states later on in the day she was walking to the bathroom and once again began to feel weak and fell. She denies loss of consciousness at that time as well. She denies any chest pain or pressure. Denies any shortness of breath. The patient was found to be bradycardic with a heart rate in the 40s. Labs showing WBC 7.0, Hgb 12, Cr 1.09, UA with pos LE. TSH >100 and T4 <0.07. Review of Systems All systems: negative Constitutional: Reports weakness, Denies chills, Denies fever Eyes: denies blurred vision, denies pain Ears, nose, mouth and throat: Denies headache, Denies sore throat Cardiovascular: Reports orthopnea, Reports syncope, Denies chest pain, Denies shortness of breath Respiratory: Denies cough Gastrointestinal: Denies abdominal pain, Denies diarrhea, Denies nausea, Denies vomiting Genitourinary: Denies dysuria, Denies hematuria Musculoskeletal: Denies myalgias Integumentary: Denies pruritus, Denies rash Neurological: Denies numbness, Denies weakness Psychiatric: Denies anxiety, Denies depression Endocrine: Denies fatigue, Denies weight change Past Medical History Past Medical History: Cancer, Diabetes Mellitus, Hyperlipidemia, Hypertension, Myocardial Infarction ([place]), Thyroid Disorder Additional Past Medical History / Comment(s): HX. [place] age 34, parotid gland cancer Last Myocardial Infarction Date:: 1973 History of Any Multi-Drug Resistant Organisms: None Reported Past Surgical History: Appendectomy, Breast Surgery, Cholecystectomy, Hysterec jesse Additional Past Surgical History / Comment(s): HX. thyroidectomy, benign excisional left breast 2008 Past Anesthesia/Blood Transfusion Reactions: No Reported Reaction Past Psychological History: No Psychological Hx Reported Smoking Status: Never smoker Past Alcohol Use History: None Reported Past Drug Use History: None Reported - Past Family History Mother Family Medical History: Cancer Additional Family Medical History / Comment(s): OVARIAN Father Family Medical History: Myocardial Infarction ([place]) Medications and Allergies Home Medications Medication Instructions Recorded Confirmed Type Desmopressin Acetate [DDAVP] 0.3 mg PO 06/16/18 04/11/22 History Simvastatin 80 mg PO DAILY 06/16/18 04/11/22 History metFORMIN HCL [Glucophage] 1,000 mg PO 06/16/18 04/11/22 History DULoxetine HCL [Cymbalta] 60 [facility] 04/10/22 04/11/22 History Levothyroxine Sodium [Synthroid] 125 mcg PO DAILY 04/10/22 04/11/22 History Pantoprazole Sodium 40 mg PO DAILY 04/10/22 04/11/22 History buPROPion XL [Wellbutrin XL] 300 mg PO [facility] 04/10/22 04/11/22 History cloNIDine HCL [Catapres] 0.1 mg PO DAILY 04/11/22 04/11/22 History Allergies Allergy/AdvReac Type Severity Reaction Status Date / Time adhesive tape Allergy Rash/Hives Verified 04/10/22 19:47 Physical Exam Vitals: Vital Signs Temp Pulse Pulse Pulse Resp BP BP 04/11/22 20:26 98.2 F 52 L 15 04/11/22 15:50 97.9 F 54 L 16 93/55 04/11/22 13:00 51 L 16 04/11/22 08:40 51 L 55 L 50 L 16 126/68 127/77 04/11/22 04:00 98.4 F 43 L 18 04/11/22 02:00 48 L 16 04/11/22 00:00 98.3 F 48 L 16 04/10/22 22:53 44 L 16 BP Pulse Ox 04/11/22 20:26 139/76 94 L 04/11/22 15:50 95 04/11/22 13:00 113/53 94 L 04/11/22 08:40 118/75 94 L 04/11/22 04:00 133/78 94 L 04/11/22 02:00 04/11/22 00:00 134/80 93 L 04/10/22 22:53 Intake and Output 04/11/22 04/11/22 04/11/22 06:59 14:59 22:59 Intake Total 240 Output Total 300 Balance -60 Intake: Oral 240 Output: Urine 300 Other: Voiding Method Bedside Commode Bedpan # Voids 1 1 # Bowel Movements 1 1 General: well nourished, well developed, NAD. Vitals reviewed Eyes: PERRL, EOMI, conjunctiva normal HENT: normocephalic, mucus membranes moist Neck: supple, no JVD Lungs: normal respiratory effort, no wheezes or rales CV: Regular rate and rhythm, no murmur. Peripheral pulses 2+ Abdomen: soft, nondistended, no organomegaly Lymph: no cervical or axillary LAD Skin: warm and dry. Neuro: A&Ox3, normal mood and affect Results CBC & Chem 7: 04/11/22 10:13 04/11/22 19:19 Labs: Abnormal Lab Results - Last 24 Hours (Table) 04/10/22 04/11/22 04/11/22 Range/Units 14:44 10:13 16:35 Sodium 131 L (137-145) mmol/L Potassium 3.3 L (3.5-5.1) mmol/L Chloride 93 L (98-107) mmol/L Glucose 111 H (74-99) mg/dL POC Glucose (mg/dL) 122 H (70-110) mg/dL Calcium 7.8 L (8.4-10.2) mg/dL TSH >100.000 H (0.465-4.680) mIU/L Free T4 <0.07 L (0.78-2.19) ng/dL 04/11/22 04/11/22 Range/Units 19:19 20:52 Sodium (137-145) mmol/L Potassium 3.4 L (3.5-5.1) mmol/L Chloride (98-107) mmol/L Glucose (74-99) mg/dL POC Glucose (mg/dL) 130 H (70-110) mg/dL Calcium (8.4-10.2) mg/dL TSH (0.465-4.680) mIU/L Free T4 (0.78-2.19) ng/dL Microbiology - Last 24 Hours (Table) 04/10/22 18:52 Blood Culture - Preliminary Blood No Growth after 24 hours 04/10/22 15:38 Urine Culture - Final Urine,Voided Thrombosis Risk Factor Assmnt - Choose All That Apply Each Risk Factor Represents 3 Points: Age 75 years or older Thrombosis Risk Factor Assessment Total Risk Factor Score: 3 Thrombosis Risk Factor Assessment Level: Moderate Risk Assessment and Plan Plan: 1. Syncope and collapse. Cardiology consulted. Echo showing normal LVEF. Suspect related to hypothyroidism. Continue IV fluids and restart synthroid 2. Profound hypothyroidism. Resume synthroid 3. Acute cystitis. Start rocephin and follow urine culture 4. Diabetes insipidis. Continue desmopressin
[2022-04-12] MEDS: SODIUM CHLORIDE 0.9% 1,000 ML IV SCH ×2 (03:41→10:36)
[2022-04-12] MEDS: ACETAMINOPHEN TAB 325 MG TAB PO PRN (04:13)
[2022-04-12] MEDS: DULoxetine HCL 60 MG CAPSULE.DR PO SCH (06:04)
[2022-04-12] MEDS: buPROPion XL 300 MG TAB.ER.24H PO SCH (06:05)
[2022-04-12] MEDS: PANTOPRAZOLE 40 MG TABLET PO SCH (06:05)
[2022-04-12] MEDS: LEVOTHYROXINE 75 MCG TAB PO SCH (06:05)
[2022-04-12 06:21] LABS: Glucose,Whole Blood 93 mg/dL (70-110)
[2022-04-12] MEDS: ENOXAPARIN 40 MG/0.4 ML SYRINGE SQ SCH (07:47)
--- NOTE | 2022-04-12 09:17 | XR ---
EXAMINATION TYPE: AP view pelvis and 2 views each hip DATE OF EXAM: 04/12/2022 COMPARISON: NONE HISTORY: 82-year-old female pain after fall FINDINGS: Mild degenerative joint space narrowing and marginal spurring and both hips. SI joints appear symmetr ic and intact as does the pubic symphysis. There is osteopenia and large body habitus. Allowing for t hese limitations, no displaced fracture is seen. IMPRESSION: Osteopenia and large body habitus limiting the evaluation. No displaced fracture seen. 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
[2022-04-12 09:32] LABS: Calcium 7.8 mg/dL (8.4-10.2); Magnesium 1.7 mg/dL (1.6-2.3); Potassium 3.9 mmol/L (3.5-5.1)
[2022-04-12 12:06] LABS: Glucose,Whole Blood 173 mg/dL (70-110)
[2022-04-12 12:06] LABS: Glucose,Whole Blood 395 mg/dL (70-110)
[2022-04-12 12:40] LABS: Appearance,Urine Clear (Clear); Bilirubin,Urine Negative (Negative); Blood,Urine Negative (Negative); Color,Urine Yellow; Glucose,Urine (UA) Negative (Negative); Ketones,Urine Trace (Negative); Leukocyte Esterase,Urine Negative (Negative); Nitrite,Urine Negative (Negative); Protein,Urine Negative (Negative); Specific Gravity,Urine 1.021 (1.001-1.035); Urobilinogen,Urine <2.0 mg/dL (<2.0)
--- NOTE | 2022-04-12 13:49 | P.PN ---
Subjective Progress Note Date: 04/12/22 This is a 82-year-old female with a past medical history significant for diabetes insipidus, hypothyroidism, diabetes, hyperlipidemia, and depression. Patient does not follow with a design printer balloon. We have been asked to see the patient in consultation for bradycardia. Patient examined at the bedside. Patient states she presented to the hospital after suffering 2 falls yesterday. Patient states her first fall happened when she was getting out of bed and was walking. She states that she knew she was going to lose her balance and she subsequently fell. She denies losing consciousness. She states later on in the day she was walking to the bathroom and once again began to feel weak and fell. She denies loss of consciousness at that time as well. She denies any chest pain or pressure. Denies any shortness of breath. The patient was found to be bradycardic with a heart rate in the 40s. EKG obtained from her primary care office dated 2013 which demonstrated sinus bradycardia with diffuse T-wave inversions. Telemetry this morning reveals sinus mechanism with heart rate between 5060. 04/12/2022 Patient was seen and examined resting comfortably in a chair eating her lunch. Labs yesterday showed a TSH of greater than 100 and a free T4 of less than 0.07. Levothyroxine has been resumed and increased by primary. Echocardiogram with Doppler was done and showed a normal LV systolic function. Heart rate Has been maintaining in the 50s. Objective - Vital Signs Vital signs: Vital Signs Temp 98.1 F 04/12/22 04:10 Pulse 53 L 04/12/22 11:29 Resp 16 04/12/22 11:29 BP 118/63 04/12/22 11:29 Pulse Ox 97 04/12/22 11:29 FiO2 Intake & Output 04/11/22 04/12/22 04/12/22 18:59 06:59 18:59 Intake Total 240 400 240 Output Total 300 250 Balance -60 400 -10 Intake: Intake, IV Titration 400 Amount Sodium Chloride 0.9% 1, 400 000 ml @ 100 mls/hr IV . Q10H JORGE Rx#:[id number] Oral 240 240 Output: Urine 300 250 Other: # Voids 1 # Bowel Movements 1 - Exam HEENT: Head is normocephalic. Pupils are equal, round. Sclerae anicteric. Mucous membranes of the mouth are moist. Neck supple. No JVD or thyromegaly LUNGS: Respirations even and unlabored. Lungs essentially clear to auscultation bilaterally. HEART: Regular rate and rhythm. S1 and S2 heard. ABDOMEN: Soft. Nondistended. Nontender. EXTREMITIES: Normal range of motion. No clubbing or cyanosis. Peripheral pulses intact. No lower extremity edema NEUROLOGIC: Drowsy. Oriented x 3. - Labs CBC & Chem 7: 04/11/22 10:13 04/12/22 08:41 Labs: Abnormal Lab Results - Last 24 Hours (Table) 04/11/22 04/11/22 04/11/22 Range/Units 16:35 19:19 20:52 Sodium (137-145) mmol/L Potassium 3.4 L (3.5-5.1) mmol/L Chloride (98-107) mmol/L Glucose (74-99) mg/dL POC Glucose (mg/dL) 122 H 130 H (70-110) mg/dL Hemoglobin A1c (0.0-6.0) % Calcium (8.4-10.2) mg/dL Urine Ketones (Negative) 04/12/22 04/12/22 04/12/22 Range/Units 08:41 08:41 11:50 Sodium 130 L (137-145) mmol/L Potassium (3.5-5.1) mmol/L Chloride 93 L (98-107) mmol/L Glucose 118 H (74-99) mg/dL POC Glucose (mg/dL) 395 H (70-110) mg/dL Hemoglobin A1c 7.2 H (0.0-6.0) % Calcium 7.8 L (8.4-10.2) mg/dL Urine Ketones (Negative) 04/12/22 04/12/22 Range/Units 11:52 12:15 Sodium (137-145) mmol/L Potassium (3.5-5.1) mmol/L Chloride (98-107) mmol/L Glucose (74-99) mg/dL POC Glucose (mg/dL) 173 H (70-110) mg/dL Hemoglobin A1c (0.0-6.0) % Calcium (8.4-10.2) mg/dL Urine Ketones Trace H (Negative) Microbiology - Last 24 Hours (Table) 04/10/22 18:52 Blood Culture - Preliminary Blood No Growth after 24 hours 04/10/22 15:38 Urine Culture - Final Urine,Voided Assessment and Plan Assessment: Bradycardia, with no heart block noted, bradycardia dates back to EKG in 2013 from PCP office, exacerbated likely due to significant hypothyroidism Status post fall 2 Hyponatremia Hypokalemia Urinary tract infection Hypothyroidism Diabetes Hyperlipidemia Diabetes insipidus Depression Plan: From cardiology perspective there is no need for further cardiac workup at this time. We will follow the patient on an as-needed basis. Please do not hesitate to contact us with questions. [employer] note has been reviewed, I agree with a documented findings and plan of care. Patient was seen and examined.
--- NOTE | 2022-04-12 13:54 | P.PN ---
Subjective from Records Livia Moura is a 82 yo F with PMH of diabetes insipidus, hypothyroidism, diabetes, hyperlipidemia and depression who presented to the hospital after suffering 2 falls yesterday. Patient states her first fall happened when she was getting out of bed and was walking. She states that she knew she was going to lose her balance and she subsequently fell. She denies losing consciousness. She states later on in the day she was walking to the bathroom and once again began to feel weak and fell. She denies loss of consciousness at that time as well. She denies any chest pain or pressure. Denies any shortness of breath. The patient was found to be bradycardic with a heart rate in the 40s. Labs showing WBC 7.0, Hgb 12, Cr 1.09, UA with pos LE. TSH >100 and T4 <0.07. 04/12/2012, Subjective: This is the first day I am taking care of the patient is a pleasant 82 years old female who apparently was sent from her home for rec urrent falling and altered mental status, patient herself cannot remember why she was sent in the hospital, she is fully awake and oriented and she knows she is in the hospital, she is oriented to time person however she is forgetful. She follows commands and looks calm and pleasant. Patient admits to frequent falling for the last 6 months. Hemodynamically stable and patient is afebrile. Labs are unremarkable. Sodium 131, potassium 3.4, liver enzymes mildly elevated. TSH more than 100 1254 less than 0.07. Urine culture is negative, ejection fraction 60-65%. Protocol stone and is negative at 0.04. Repeat blood cultures negative. Therefore we will discontinue ceftriaxone as patient with no evidence of UTI Hip x-ray showing osteopenia with no displaced fracture. There is mild bilatera l hip osteoarthritis Discontinue with normal saline 100 mL per hour Continue with home medication. She is currently on levothyroxine 150 g Objective - Vital Signs Vital signs: Vital Signs Temp 98.1 F 04/12/22 04:10 Pulse 53 L 04/12/22 11:29 Resp 16 04/12/22 11:29 BP 118/63 04/12/22 11:29 Pulse Ox 97 04/12/22 11:29 FiO2 Intake & Output 04/11/22 04/12/22 04/12/22 18:59 06:59 18:59 Intake Total 240 400 240 Output Total 300 Balance -60 400 240 Intake: Intake, IV Titration 400 Amount Sodium Chloride 0.9% 1, 400 000 ml @ 100 mls/hr IV . [facility] Rx#:[id number] Oral 240 240 Output: Urine 300 Other: # Voids 1 # Bowel Movements 1 - Exam -GENERAL: The patient is alert and oriented x3, slightly drowsy, readily arousable, not in any acute distress. Morbidly obese HEENT: Pupils are round and equally reacting to light. EOMI. No scleral icterus. No conjunctival pallor. Normocephalic, atraumatic. No pharyngeal erythema. No thyromegaly. CARDIOVASCULAR: S1 and S2 present. No murmurs, rubs, or gallops. PULMONARY: Chest is clear to auscultation, no wheezing or crackles. ABDOMEN: Soft, nontender, nondistended, normoactive bowel sounds. No palpable organomegaly. MUSCULOSKELETAL: No joint swelling or deformity. EXTREMITIES: No cyanosis, clubbing, or pedal edema. NEUROLOGICAL: Gross neurological examination did not reveal any focal deficits. SKIN: No rashes. no petechiae. - Labs CBC & Chem 7: 04/11/22 10:13 04/12/22 08:41 Labs: Abnormal Lab Results - Last 24 Hours (Table) 04/11/22 04/11/22 04/11/22 Range/Units 16:35 19:19 20:52 Sodium (137-145) mmol/L Potassium 3.4 L (3.5-5.1) mmol/L Chloride (98-107) mmol/L Glucose (74-99) mg/dL POC Glucose (mg/dL) 122 H 130 H (70-110) mg/dL Hemoglobin A1c (0.0-6.0) % Calcium (8.4-10.2) mg/dL 04/12/22 04/12/22 Range/Units 08:41 08:41 Sodium 130 L (137-145) mmol/L Potassium (3.5-5.1) mmol/L Chloride 93 L (98-107) mmol/L Glucose 118 H (74-99) mg/dL POC Glucose (mg/dL) (70-110) mg/dL Hemoglobin A1c 7.2 H (0.0-6.0) % Calcium 7.8 L (8.4-10.2) mg/dL Microbiology - Last 24 Hours (Table) 04/10/22 18:52 Blood Culture - Preliminary Blood No Growth after 24 hours 04/10/22 15:38 Urine Culture - Final Urine,Voided Assessment and Plan Assessment: Left hip pain, most likely osteoarthritis, no evidence of acute fracture on the x-ray Multiple falls associated with generalized weakness Acute hypothyroidism Nonadherence to therapy Memory problem, rule out Dementia which can be done as an outpatient. Plan: This is a pleasant 82 years old female who presents with weakness, fall, hypothyroidism, memory problem Encouraged patient to take medication, consult business case analyst Continue with levothyroxine 150 g Recommend to check thyroid function test in 1 month Discontinue antibiotic, urine culture is negative. Discontinue normal saline. Continue with metformin 1000 daily. Labs and medication were reviewed.. Continue same treatment. Continue with symptomatic treatment. Resume home medication. Monitor lytes and vitals. DVT and GI prophylaxis. Further recommendations as per clinical course of the patient DVT prophylaxis: Subcutaneous Lovenox GI Prophylaxis: Ppi PT/OT: Subacute rehab, secondary social studies teacher consulted Prognosis is guarded
[2022-04-12 17:15] LABS: Glucose,Whole Blood 136 mg/dL (70-110)
[2022-04-12 19:34] LABS: Glucose,Whole Blood 132 mg/dL (70-110)
[2022-04-12] MEDS: ATORVASTATIN 40 MG TAB PO SCH (20:59)
[2022-04-12] MEDS: DESMOPRESSIN 0.2 MG TAB PO SCH (20:59)
[2022-04-12] MEDS: metFORMIN 500 MG TAB PO SCH (20:59)
[2022-04-12] MEDS: PRAMIPEXOLE 0.25 MG TAB PO SCH (20:59)
[2022-04-13] MEDS: ACETAMINOPHEN TAB 325 MG TAB PO PRN (06:02)
[2022-04-13 06:03] LABS: Glucose,Whole Blood 123 mg/dL (70-110)
[2022-04-13] MEDS: PANTOPRAZOLE 40 MG TABLET PO SCH (06:03)
[2022-04-13] MEDS: DULoxetine HCL 60 MG CAPSULE.DR PO SCH (06:03)
[2022-04-13] MEDS: buPROPion XL 300 MG TAB.ER.24H PO SCH (06:03)
[2022-04-13] MEDS: LEVOTHYROXINE 75 MCG TAB PO SCH (06:03)
[2022-04-13] MEDS: ENOXAPARIN 40 MG/0.4 ML SYRINGE SQ SCH (07:41)
[2022-04-13 09:01] LABS: Basophils # (A) 0.1 k/uL (0-0.2); Basophils % (A) 1 %; Eosinophils # (A) 0.2 k/uL (0-0.7); Eosinophils % (A) 2 %; HGB 11.1 gm/dL (11.4-16.0); Lymphocytes # (A) 1.8 k/uL (1.0-4.8); Lymphocytes % (A) 24 %; MCH 30.2 pg (25.0-35.0); MCHC 32.6 g/dL (31.0-37.0); MCV 92.7 fL (80.0-100.0); Mean Platelet Volume 10.4; Monocytes # (A) 0.4 k/uL (0-1.0); Monocytes % (A) 6 %; Neutrophils # (A) 4.8 k/uL (1.3-7.7); Neutrophils % (A) 66 %; Platelet Count 203 k/uL (150-450); RBC 3.67 m/uL (3.80-5.40); RDW 13.9 % (11.5-15.5); WBC 7.3 k/uL (3.8-10.6)
[2022-04-13 09:15] LABS: ALT 29 U/L (4-34); AST 56 U/L (14-36); African American GFR (CKD) 74 (>60 ml/min/1.73 sqM); Albumin 4.6 g/dL (3.5-5.0); Alkaline Phosphatase 59 U/L (38-126); Anion Gap 8 mmol/L; Bilirubin, Delta 0.1 mg/dL (0.0-0.2); Bilirubin,Unconjugated 0.3 mg/dL (0.0-1.1); Blood Urea Nitrogen 8 mg/dL (7-17); Calcium 8.5 mg/dL (8.4-10.2); Carbon Dioxide 32 mmol/L (22-30); Chloride 90 mmol/L (98-107); Glucose 108 mg/dL (74-99); Magnesium 1.7 mg/dL (1.6-2.3); Non-African American GFR(CKD) 64 (>60 ml/min/1.73 sqM); Potassium 4.5 mmol/L (3.5-5.1); Sodium 130 mmol/L (137-145); Total Bilirubin 0.4 mg/dL (0.2-1.3); Total Protein 7.1 g/dL (6.3-8.2)
[2022-04-13 09:30] LABS: T4, Free (Free Thyroxine) 0.23 ng/dL (0.78-2.19)
--- NOTE | 2022-04-13 11:12 | P.PN ---
Subjective from Records Livia Moura is a 82 yo F with PMH of diabetes insipidus, hypothyroidism, diabetes, hyperlipidemia and depression who presented to the hospital after suffering 2 falls yesterday. Patient states her first fall happened when she was getting out of bed and was walking. She states that she knew she was going to lose her balance and she subsequently fell. She denies losing consciousness. She states later on in the day she was walking to the bathroom and once again began to feel weak and fell. She denies loss of consciousness at that time as well. She denies any chest pain or pressure. Denies any shortness of breath. The patient was found to be bradycardic with a heart rate in the 40s. Labs showing WBC 7.0, Hgb 12, Cr 1.09, UA with pos LE. TSH >100 and T4 <0.07. 04/12/2012, Subjective: This is the first day I am taking care of the patient is a pleasant 82 years old female who apparently was sent from her home for rec urrent falling and altered mental status, patient herself cannot remember why she was sent in the hospital, she is fully awake and oriented and she knows she is in the hospital, she is oriented to time person however she is forgetful. She follows commands and looks calm and pleasant. Patient admits to frequent falling for the last 6 months. Hemodynamically stable and patient is afebrile. Labs are unremarkable. Sodium 131, potassium 3.4, liver enzymes mildly elevated. TSH more than 100 1254 less than 0.07. Urine culture is negative, ejection fraction 60-65%. Protocol stone and is negative at 0.04. Repeat blood cultures negative. Therefore we will discontinue ceftriaxone as patient with no evidence of UTI Hip x-ray showing osteopenia with no displaced fracture. There is mild bilatera l hip osteoarthritis Discontinue with normal saline 100 mL per hour Continue with home medication. She is currently on levothyroxine 150 g 04/13/2022 Patient clinically is doing well, she still generally weak and recurrent subacute rehab however she looks medically stable and improving gradually after starting her thyroid medication. Most likely Patient has memory problems and she was not taking her medication appropriately, patient will need close monitoring upon discharge to make sure patient taking her medication as supposed to be. Abdomen that she is medically stable no chest pain or headache, no blurred vision or weakness or numbness in arms or legs. No vomiting or diarrhea. No urinary complaints. Patient has no evidence of UTI and no need for antibiotics for now. Sodium is 130, potassium 4.5. Liver enzymes mildly elevated. Ejection fraction is 6065% Also we did hip x-ray which showing osteopenia with no displaced fracture. Objective - Vital Signs Vital signs: Vital Signs Temp 98.1 F 04/13/22 07:39 Pulse 54 L 04/13/22 07:39 Resp 16 04/13/22 07:39 BP 153/77 04/13/22 07:39 Pulse Ox 100 04/13/22 07:39 FiO2 Intake & Output 04/12/22 04/13/22 04/13/22 18:59 06:59 18:59 Intake Total 608 100 Output Total 250 Balance 358 100 Intake: Intake, IV Titration 0 Amount Sodium Chloride 0.9% 1, 0 000 ml @ 100 mls/hr IV . Q10H [facility] Rx#:[id number] cefTRIAXone 1 gm In 0 Sodium Chloride 0.9% 50 ml @ 100 mls/hr IVPB DAILY [facility] Rx#:[id number] Oral 608 100 Output: Urine 250 Other: # Voids 1 - Exam -GENERAL: The patient is alert and oriented x3, slightly drowsy, readily arousable, not in any acute distress. Morbidly obese HEENT: Pupils are round and equally reacting to light. EOMI. No scleral icterus. No conjunctival pallor. Normocephalic, atraumatic. No pharyngeal erythema. No thyromegaly. CARDIOVASCULAR: S1 and S2 present. No murmurs, rubs, or gallops. PULMONARY: Chest is clear to auscultation, no wheezing or crackles. ABDOMEN: Soft, nontender, nondistended, normoactive bowel sounds. No palpable organomegaly. MUSCULOSKELETAL: No joint swelling or deformity. EXTREMITIES: No cyanosis, clubbing, or pedal edema. NEUROLOGICAL: Gross neurological examination did not reveal any focal deficits. SKIN: No rashes. no petechiae. - Labs CBC & Chem 7: 04/13/22 08:15 04/13/22 08:15 Labs: Abnormal Lab Results - Last 24 Hours (Table) 04/12/22 04/12/22 04/12/22 Range/Units 08:41 11:50 11:52 RBC (3.80-5.40) m/uL Hgb (11.4-16.0) gm/dL Sodium (137-145) mmol/L Chloride (98-107) mmol/L Carbon Dioxide (22-30) mmol/L Glucose (74-99) mg/dL POC Glucose (mg/dL) 395 H 173 H (70-110) mg/dL Hemoglobin A1c 7.2 H (0.0-6.0) % AST (14-36) U/L TSH (0.465-4.680) mIU/L Free T4 (0.78-2.19) ng/dL Urine Ketones (Negative) 04/12/22 04/12/22 04/12/22 Range/Units 12:15 16:58 19:33 RBC (3.80-5.40) m/uL Hgb (11.4-16.0) gm/dL Sodium (137-145) mmol/L Chloride (98-107) mmol/L Carbon Dioxide (22-30) mmol/L Glucose (74-99) mg/dL POC Glucose (mg/dL) 136 H 132 H (70-110) mg/dL Hemoglobin A1c (0.0-6.0) % AST (14-36) U/L TSH (0.465-4.680) mIU/L Free T4 (0.78-2.19) ng/dL Urine Ketones Trace H (Negative) 04/13/22 04/13/22 04/13/22 Range/Units 06:01 08:15 08:15 RBC 3.67 L (3.80-5.40) m/uL Hgb 11.1 L (11.4-16.0) gm/dL Sodium 130 L (137-145) mmol/L Chloride 90 L (98-107) mmol/L Carbon Dioxide 32 H (22-30) mmol/L Glucose 108 H (74-99) mg/dL POC Glucose (mg/dL) 123 H (70-110) mg/dL Hemoglobin A1c (0.0-6.0) % AST 56 H (14-36) U/L TSH >100.000 H (0.465-4.680) mIU/L Free T4 0.23 L (0.78-2.19) ng/dL Urine Ketones (Negative) Microbiology - Last 24 Hours (Table) 04/10/22 18:52 Blood Culture - Preliminary Blood No Growth after 48 hours Assessment and Plan Assessment: Left hip pain, most likely osteoarthritis, no evidence of acute fracture on the x-ray Multiple falls associated with generalized weakness Acute hypothyroidism Nonadherence to therapy Memory problem, rule out Dementia which can be done as an outpatient. Plan: This is a pleasant 82 years old female who presents with weakness, fall, hypothyroidism, memory problem Encouraged patient to take medication, consult case technician Continue with levothyroxine 150 g Recommend to check thyroid function test in 1 month Discontinue antibiotic, urine culture is negative. Discontinue normal saline. Continue with metformin 1000 daily. Labs and medication were reviewed.. Continue same treatment. Continue with symptomatic treatment. Resume home medication. Monitor lytes and vitals. DVT and GI prophylaxis. Further recommendations as per clinical course of the patient DVT prophylaxis: Subcutaneous Lovenox GI Prophylaxis: Ppi PT/OT: Subacute rehab, clinical social worker consulted Prognosis is guarded
[2022-04-13 12:26] LABS: Glucose,Whole Blood 115 mg/dL (70-110)
[2022-04-13 17:14] LABS: Glucose,Whole Blood 115 mg/dL (70-110)
[2022-04-13 20:48] LABS: Glucose,Whole Blood 107 mg/dL (70-110)
[2022-04-13] MEDS: PRAMIPEXOLE 0.25 MG TAB PO SCH (20:48)
[2022-04-13] MEDS: metFORMIN 500 MG TAB PO SCH (20:48)
[2022-04-13] MEDS: ATORVASTATIN 40 MG TAB PO SCH (20:48)
[2022-04-13] MEDS: DESMOPRESSIN 0.2 MG TAB PO SCH (20:48)
[2022-04-14 06:16] LABS: Glucose,Whole Blood 92 mg/dL (70-110)
[2022-04-14] MEDS: DULoxetine HCL 60 MG CAPSULE.DR PO SCH (06:18)
[2022-04-14] MEDS: buPROPion XL 300 MG TAB.ER.24H PO SCH (06:18)
[2022-04-14] MEDS: PANTOPRAZOLE 40 MG TABLET PO SCH (06:19)
[2022-04-14] MEDS: LEVOTHYROXINE 75 MCG TAB PO SCH (06:19)
--- NOTE | 2022-04-14 09:26 | P.DS ---
Providers Date of admission: 04/10/22 19:13 Expected date of discharge: 04/14/22 Attending physician: Thee Jane MD Consults: 04/10/22 19:13 Consult Physician Urgent Consulting Provider: Arline Broderick Consult Reason/Comments: bradycardia Do you want consulting provider notified?: Yes Primary care physician: [facility] Course: Livia Moura is a 82 yo F with PMH of diabetes insipidus, hypothyroidism, diabetes, hyperlipidemia and depression who presented to the hospital after suffering 2 falls yesterday. Patient states her first fall happened when she was getting out of bed and was walking. She states that she knew she was going to lose her balance and she subsequently fell. She denies losing consciousness. She states later on in the day she was walking to the bathroom and once again began to feel weak and fell. She denies loss of consciousness at that time as well. She denies any chest pain or pressure. Denies any shortness of breath. The patient was found to be bradycardic with a heart rate in the 40s. Labs showing WBC 7.0, Hgb 12, Cr 1.09, UA with pos LE. TSH >100 and T4 <0.07. Pt admitted to medicine, seen by Cardiology. She underwent echo which showed normal LVEF. Pt cleared by Cardiology and bradycardia felt to be secondary to profound hypothyroidism. She was restarted on synthroid and her UTI was treated with rocephin. Pt with significant improvement in mentation. T4 on discharge 0.2. She is discharged to subacute rehab in stable condition and recommended to continue synthroid and have thyroid levels rechecked in 2 weeks. Patient Condition at Discharge: Fair Plan - Discharge Summary Discharge Rx Participant: No New Discharge Prescriptions: New Pramipexole [Mirapex] 0.25 mg PO HS #30 tab Levothyroxine Sodium 150 mcg PO DAILY #30 tablet Continue Desmopressin Acetate [Ddavp] 0.3 mg PO HS metFORMIN HCL [Glucophage] 1,000 mg PO HS Simvastatin 80 mg PO DAILY buPROPion XL [Wellbutrin XL] 300 mg PO AC-BRKFST DULoxetine HCL [Cymbalta] 60 mg PO AC-BRKFST Pantoprazole Sodium 40 mg PO DAILY Discontinued Levothyroxine Sodium [Synthroid] 125 mcg PO DAILY cloNIDine HCL [Catapres] 0.1 mg PO DAILY Discharge Medication List Desmopressin Acetate [Ddavp] 0.3 mg PO HS 06/16/18 [History] Simvastatin 80 mg PO DAILY 06/16/18 [History] metFORMIN HCL [Glucophage] 1,000 mg PO HS 06/16/18 [History] DULoxetine HCL [Cymbalta] 60 mg PO RUST 04/10/22 [History] Pantoprazole Sodium 40 mg PO DAILY 04/10/22 [History] buPROPion XL [Wellbutrin XL] 300 mg PO RUST 04/10/22 [History] Levothyroxine Sodium 150 mcg PO DAILY #30 tablet 04/14/22 [Rx] Pramipexole [Mirapex] 0.25 mg PO HS #30 tab 04/14/22 [Rx] Follow up Appointment(s)/Referral(s): [facility] [NON-STAFF] - Claudette Jane DO [Primary Care Provider] - 1-2 days Discharge Disposition: TRANSFER TO SNF/ECF
[2022-04-14] MEDS: ENOXAPARIN 40 MG/0.4 ML SYRINGE SQ SCH (09:29)
[2022-04-14 12:16] LABS: Glucose,Whole Blood 95 mg/dL (70-110)
[2022-04-14 16:49] LABS: Glucose,Whole Blood 132 mg/dL (70-110)
[2022-04-14] MEDS: metFORMIN 500 MG TAB PO SCH (19:54)
[2022-04-14] MEDS: ATORVASTATIN 40 MG TAB PO SCH (19:54)
[2022-04-14] MEDS: PRAMIPEXOLE 0.25 MG TAB PO SCH (19:54)
[2022-04-14] MEDS: DESMOPRESSIN 0.2 MG TAB PO SCH (19:56)
[2022-04-14 20:11] LABS: Glucose,Whole Blood 132 mg/dL (70-110)
[2022-04-15 05:46] LABS: Glucose,Whole Blood 112 mg/dL (70-110)
[2022-04-15] MEDS: DULoxetine HCL 60 MG CAPSULE.DR PO SCH (06:30)
[2022-04-15] MEDS: LEVOTHYROXINE 75 MCG TAB PO SCH (06:30)
[2022-04-15] MEDS: buPROPion XL 300 MG TAB.ER.24H PO SCH (06:30)
[2022-04-15] MEDS: PANTOPRAZOLE 40 MG TABLET PO SCH (06:30)
[2022-04-15] MEDS: ENOXAPARIN 40 MG/0.4 ML SYRINGE SQ SCH (08:15)
[2022-04-15 11:40] LABS: Glucose,Whole Blood 95 mg/dL (70-110)
[2022-04-15 11:53] VITALS: BP 163/78; PULSE 51; RESP 17; TEMP 97.8
== END 2022-04-15 12:49 | DRG 644 ==
LOC: EC 14:15 → 3SCARD 19:13
PROVIDERS: ADMIT Family Medicine; ATTEND Family Medicine
DX: E89.0 Postprocedural hypothyroidism (principal); E23.2 Diabetes insipidus; Z68.41 Body mass index [BMI] 40.0-44.9, adult; S09.90XA Unspecified injury of head, initial encounter; E11.9 Type 2 diabetes mellitus without complications; E66.01 Morbid (severe) obesity due to excess calories; I10 Essential (primary) hypertension; M16.0 Bilateral primary osteoarthritis of hip; E78.5 Hyperlipidemia, unspecified; E86.0 Dehydration; E83.42 Hypomagnesemia; M85.80 Other specified disorders of bone density and structure, unspecified site; F32.A Depression, unspecified; R00.1 Bradycardia, unspecified; R29.6 Repeated falls; I25.2 Old myocardial infarction; Z79.84 Long term (current) use of oral hypoglycemic drugs; Z79.890 Hormone replacement therapy; Z79.899 Other long term (current) drug therapy; Z91.048 Other nonmedicinal substance allergy status; Z85.858 Personal history of malignant neoplasm of other endocrine glands; Z90.49 Acquired absence of other specified parts of digestive tract; Z87.19 Personal history of other diseases of the digestive system; Z90.710 Acquired absence of both cervix and uterus; W19.XXXA Unspecified fall, initial encounter; Z82.49 Family history of ischemic heart disease and other diseases of the circulatory system; Z80.41 Family history of malignant neoplasm of ovary
CPT/HCPCS: 36415; 70450; 71046; 72125; 73521; 80048; 80053; 80076; 81001; 81003; 82607; 82746; 83036; 83605; 83735; 84132; 84145; 84439; 84443; 84484; 85025; 85610; 85730; 87040; 87086; 93005; 93306; 94760; 96361; 96365; 96366; 96368; 99285

== ENCOUNTER → 2022-05-06 | Emergency (ER) | payer MEDICARE ==
[2022-05-06 22:38] LABS: Basophils # (A) 0.1 k/uL (0-0.2); Basophils % (A) 1 %; Eosinophils # (A) 0.1 k/uL (0-0.7); Eosinophils % (A) 1 %; HCT 38.4 % (34.0-46.0); HGB 12.4 gm/dL (11.4-16.0); Lymphocytes # (A) 0.9 k/uL (1.0-4.8); Lymphocytes % (A) 11 %; MCH 30.8 pg (25.0-35.0); MCHC 32.3 g/dL (31.0-37.0); MCV 95.2 fL (80.0-100.0); Mean Platelet Volume 8.5; Monocytes # (A) 0.5 k/uL (0-1.0); Monocytes % (A) 6 %; Neutrophils # (A) 6.5 k/uL (1.3-7.7); Neutrophils % (A) 79 %; Platelet Count 472 k/uL (150-450); RBC 4.04 m/uL (3.80-5.40); RDW 13.7 % (11.5-15.5); WBC 8.2 k/uL (3.8-10.6)
[2022-05-06 22:43] LABS: Appearance,Urine Clear (Clear); Bacteria,Urine Rare /hpf; Bilirubin,Urine Negative (Negative); Blood,Urine Small (Negative); Color,Urine Light Yellow; Glucose,Urine (UA) Negative (Negative); Ketones,Urine 2+ (Negative); Leukocyte Esterase,Urine Large (Negative); Mucus,Urine Rare /hpf; Nitrite,Urine Positive (Negative); PH, Urine 5.5 (5.0-8.0); Protein,Urine Trace (Negative); RBC,Urine 2 /hpf (0-5); Specific Gravity,Urine 1.009 (1.001-1.035); Squamous Epithelial Cell,Urine 1 /hpf (0-4); Urobilinogen,Urine <2.0 mg/dL (<2.0); WBC,Urine 18 /hpf (0-5)
[2022-05-07 00:22] LABS: Albumin 4.3 g/dL (3.5-5.0); Calcium 9.8 mg/dL (8.4-10.2); Total Bilirubin 0.5 mg/dL (0.2-1.3)
[2022-05-07 00:24] LABS: Potassium 3.6 mmol/L (3.5-5.1)
--- NOTE | 2022-05-07 17:24 | XR ---
EXAM: XR Chest, 2 Views CLINICAL HISTORY: ITS. REASON XR Reason: CHEST PAIN TECHNIQUE: Frontal and lateral views of the chest. COMPARISON: No relevant prior studies available. FINDINGS: Lungs: Mild vascular congestion. No clear consolidation. Pleural space: Unremarkable. No pneumothorax. Heart: Borderline cardiomegaly. Mediastinum: Unremarkable. Bones/joints: Unremarkable. IMPRESSION: Borderline cardiomegaly. Mild vascular congestion. No clear consolidation.
--- NOTE | 2022-05-08 13:52 | CT ---
EXAMINATION TYPE: CT brain wo con DATE OF EXAM: 05/07/2022 COMPARISON: 04/19/2022 HISTORY: Acute neuro deficit CT DLP: 2166.4 mGycm Automated exposure control for dose reduction was used. Helical imaging through the brain. FINDINGS: Periventricular white matter shows patchy low attenuation as on prior exam. No hemorrhage or hydrocep halus. There is no mass effect or midline shift. Cerebral vascular calcifications are present. Orbits show symmetric appearance. Inflammatory changes are present within the maxillary sinuses. 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
== END ==
LOC: EC 16:00
DX: R41.0 Disorientation, unspecified (principal); Z88.8 Allergy status to other drugs, medicaments and biological substances; Z20.822 Contact with and (suspected) exposure to COVID-19
CPT/HCPCS: 36415; 70450; 71046; 80053; 81001; 84443; 84484; 85025; 87040; 87635; 99285

== ENCOUNTER 2022-05-08 11:00 | Inpatient (IN) | payer MEDICARE ==
[2022-05-08] MEDS ORDERED: HYDROmorphone 0.5 MG/0.5 ML SYRINGE IVP STA (11:07)
--- NOTE | 2022-05-08 11:20 | ED ---
Abdominal Pain HPI - General Chief Complaint: Abdominal Pain Stated Complaint: Abd pain Time Seen by Provider: 05/08/22 11:02 Source: patient, EMS, RN notes reviewed Mode of arrival: EMS Limitations: no limitations - History of Present Illness Initial Comments: This is an 82-year-old female who presents to the emergency department for abdominal pain and distention. Patient brought by EMS from [facility] in [place]. Patient was here 2 days ago for altered mental status and diagnosed with a UTI. Per EMS, she has been A and O x1. The same cone cleaner who brought her to the emergency department 2 days ago was again with her today, and states that her mental status has not changed. However, her family states that she is much more altered than normal. Over the last day, the patient has been complaining of abdominal pain and the staff at [facility] has noted abdominal distention. She has also been vomiting. Her [id number] is with her at bed side, who states that approximately one month ago, she was cognitively intact, driving, walking around, and caring for herself independently. She has had a drastic decline since then. She is also not taking her medications for no clear reason and is having severe memory loss. Her daughter would like to discuss hospice placement due to this severe decline and in order to keep the patient comfortable. However, they would like to proceed with general medical treatment for the meantime in the event she is able to improve. Denies any fevers, chills, sore throat, cough, dyspnea, chest pain, palpitations, nausea, diarrhea, back pain, or headaches. MD Complaint: abdominal pain Onset/Timin -: days(s) Location: diffuse - Related Data Home Medications Medication Instructions Recorded Confirmed Desmopressin Acetate [Ddavp] 0.3 mg PO HS 06/16/18 05/08/22 metFORMIN HCL [Glucophage] 1,000 mg PO DAILY 06/16/18 05/08/22 DULoxetine HCL [Cymbalta] 60 mg PO DAILY 04/10/22 05/08/22 buPROPion XL [Wellbutrin XL] 300 mg PO DAILY 04/10/22 05/08/22 Levothyroxine Sodium 150 mcg PO DAILY 04/18/22 05/08/22 Omeprazole 20 mg PO DAILY 04/18/22 05/08/22 Pramipexole [Mirapex] 0.25 mg PO HS 04/18/22 05/08/22 Sodium Chloride Tab 1 gm PO DAILY 04/18/22 05/08/22 INSULIN LISPRO (HumaLOG) [humaLOG] See Protocol SQ AC-TID 05/08/22 05/08/22 Loperamide [Imodium] 2 mg PO Q6H PRN 05/08/22 05/08/22 Nitrofurantoin Monohyd/M-Cryst 100 mg PO Q12HR 05/08/22 05/08/22 [Macrobid] Ondansetron [Zofran] 4 mg PO Q6H PRN 05/08/22 05/08/22 Simvastatin [Zocor] 40 mg PO HS 05/08/22 05/08/22 cloNIDine HCL [Catapres] 0.1 mg PO DAILY PRN 05/08/22 05/08/22 Previous Rx's Medication Instructions Recorded Aspirin EC [Ecotrin Low Dose] 81 mg PO DAILY #1 tab 04/21/22 Cyanocobalamin [Vitamin B-12] 1,000 mcg PO DAILY tab 04/21/22 Tamsulosin [Flomax] 0.4 mg PO BID #60 cap 04/21/22 Allergies Allergy/AdvReac Type Severity Reaction Status Date / Time adhesive tape Allergy Rash/Hives Verified 05/08/22 11:38 Review of Systems ROS Statement: Those systems with pertinent positive or pertinent negative responses have been documented in the HPI. ROS Other: All systems not noted in ROS Statement are negative. Past Medical History Past Medical History: Cancer, Diabetes Mellitus, Hyperlipidemia, Hypertension, Myocardial Infarction (ID), Thyroid Disorder Additional Past Medical History / Comment(s): HX. ID age 34, parotid gland cance r Last Myocardial Infarction Date:: 1973 History of Any Multi-Drug Resistant Organisms: None Reported Past Surgical History: Appendectomy, Breast Surgery, Cholecystectomy, Hysterectomy Additional Past Surgical History / Comment(s): HX. thyroidectomy, benign excisional left breast 2007 Past Anesthesia/Blood Transfusion Reactions: No Reported Reaction Past Psychological History: No Psychological Hx Reported Smoking Status: Never smoker Past Alcohol Use History: None Reported Past Drug Use History: None Reported - Past Family History Mother Family Medical History: Cancer Additional Family Medical History / Comment(s): OVARIAN Father Family Medical History: Myocardial Infarction (ID) General Exam General appearance: alert, in no apparent distress Head exam: Present: atraumatic, normocephalic, normal inspection Respiratory exam: Present: normal lung sounds bilaterally. Absent: respiratory distress, wheezes, rales, rhonchi, stridor Cardiovascular Exam: Present: regular rate, normal rhythm, normal heart sounds. Absent: systolic murmur, diastolic murmur, rubs, gallop, clicks GI/Abdominal exam: Present: distended, hypoactive bowel sounds Neurological exam: Present: alert Skin exam: Present: warm, dry, intact, normal color. Absent: rash Course Vital Signs 05/08/22 05/08/22 11:05 13:32 Temperature 97.4 F L Pulse Rate 95 91 Respiratory 20 18 Rate Blood Pressure 115/64 122/84 O2 Sat by Pulse 92 L 94 L Oximetry Medical Decision Making - Medical Decision Making This is an 82-year-old female who presents to the emergency department for ab dominal pain and distention. CBC reveals leukocytosis. Lab work reveals an acute kidney injury, significantly changed from 2 days ago. Unfortunately, the patient did have a computed tomography scan of the abdomen and pelvis that included contrast before today's lab work was back due to normal kidney function 2 days ago. Patient will be rehydrated with IV fluids. Computed tomography scan of the abdomen and pelvis reveals a severe ileus. Patient will be admitted for a MANUEL and ileus. Palliative care and hospice will be consulted per the family's request to discuss the best options for moving forward in light of the patient's current situation. Family also requests emotional support from palliative care. Her [id number] does not want her to suffer and states that she would like to get a diagnosis that would qualify her for hospice care. General surgery also consulted for the ileus. Patient kept NPO and started on IV fluids. She will have Ofirmev ordered as needed for pain relief due to the patient's NPO status. Will avoid NSAIDs due to the MANUEL and opioids to prevent further slowing of the bowels. This case was discussed in detail with the attending ED physician. Presentation, findings, and treatment plan discussed in detail as well. - Lab Data Result diagrams: 05/08/22 11:18 05/08/22 11:18 Lab Results 05/08/22 05/08/22 05/08/22 Range/Units 11:18 11:18 11:29 WBC 11.4 H (3.8-10.6) k/uL RBC 4.07 (3.80-5.40) m/uL Hgb 12.2 (11.4-16.0) gm/dL Hct 38.5 (34.0-46.0) % MCV 94.5 (80.0-100.0) fL MCH 29.9 (25.0-35.0) pg MCHC 31.6 (31.0-37.0) g/dL RDW 13.5 (11.5-15.5) % Plt Count 471 H (150-450) k/uL MPV 8.8 Neutrophils % 77 % Lymphocytes % 13 % Monocytes % 6 % Eosinophils % 1 % Basophils % 1 % Neutrophils # 8.8 H (1.3-7.7) k/uL Lymphocytes # 1.5 (1.0-4.8) k/uL Monocytes # 0.7 (0-1.0) k/uL Eosinophils # 0.1 (0-0.7) k/uL Basophils # 0.1 (0-0.2) k/uL Sodium 142 (137-145) mmol/L Potassium 4.8 (3.5-5.1) mmol/L Chloride 94 L (98-107) mmol/L Carbon Dioxide 33 H (22-30) mmol/L Anion Gap 15 mmol/L BUN 35 H (7-17) mg/dL Creatinine 1.88 H (0.52-1.04) mg/dL Est GFR (CKD-EPI)AfAm 28 (>60 ml/min/1.73 sqM) Est GFR (CKD-EPI)NonAf 25 (>60 ml/min/1.73 sqM) Glucose 137 H (74-99) mg/dL Plasma Lactic Acid Evangelist (0.7-2.0) mmol/L Calcium 9.4 (8.4-10.2) mg/dL Total Bilirubin 0.8 (0.2-1.3) mg/dL AST 24 (14-36) U/L ALT 12 (4-34) U/L Alkaline Phosphatase 62 (38-126) U/L Total Protein 6.7 (6.3-8.2) g/dL Albumin 4.0 (3.5-5.0) g/dL Amylase <30 L (30-110) U/L Lipase 43 (23-300) U/L TSH 36.100 H (0.465-4.680) mIU/L Free T4 1.53 (0.78-2.19) ng/dL Urine Color Light Red Urine Appearance Turbid H (Clear) Urine pH 5.5 (5.0-8.0) Ur Specific Easley 1.017 (1.001-1.035) Urine Protein 3+ H (Negative) Urine Glucose (UA) Negative (Negative) Urine Ketones Negative (Negative) Urine Blood Large H (Negative) Urine Nitrite Negative (Negative) Urine Bilirubin Negative (Negative) Urine Urobilinogen <2.0 (<2.0) mg/dL Ur Leukocyte Esterase Large H (Negative) Urine RBC 111 H (0-5) /hpf Urine WBC 159 H (0-5) /hpf Urine WBC Clumps Many H (None) /hpf Ur Squamous Epith Cells 4 (0-4) /hpf Amorphous Sediment Few H (None) /hpf Urine Bacteria Many H (None) /hpf Hyaline Casts 74 H (0-2) /lpf Urine Mucus Many H (None) /hpf 05/08/22 Range/Units 11:29 WBC (3.8-10.6) k/uL RBC (3.80-5.40) m/uL Hgb (11.4-16.0) gm/dL Hct (34.0-46.0) % MCV (80.0-100.0) fL MCH (25.0-35.0) pg MCHC (31.0-37.0) g/dL RDW (11.5-15.5) % Plt Count (150-450) k/uL MPV Neutrophils % % Lymphocytes % % Monocytes % % Eosinophils % % Basophils % % Neutrophils # (1.3-7.7) k/uL Lymphocytes # (1.0-4.8) k/uL Monocytes # (0-1.0) k/uL Eosinophils # (0-0.7) k/uL Basophils # (0-0.2) k/uL Sodium (137-145) mmol/L Potassium (3.5-5.1) mmol/L Chloride (98-107) mmol/L Carbon Dioxide (22-30) mmol/L Anion Gap mmol/L BUN (7-17) mg/dL Creatinine (0.52-1.04) mg/dL Est GFR (CKD-EPI)AfAm (>60 ml/min/1.73 sqM) Est GFR (CKD-EPI)NonAf (>60 ml/min/1.73 sqM) Glucose (74-99) mg/dL Plasma Lactic Acid Evangelist 3.2 H* (0.7-2.0) mmol/L Calcium (8.4-10.2) mg/dL Total Bilirubin (0.2-1.3) mg/dL AST (14-36) U/L ALT (4-34) U/L Alkaline Phosphatase (38-126) U/L Total Protein (6.3-8.2) g/dL Albumin (3.5-5.0) g/dL Amylase (30-110) U/L Lipase (23-300) U/L TSH (0.465-4.680) mIU/L Free T4 (0.78-2.19) ng/dL Urine Color Urine Appearance (Clear) Urine pH (5.0-8.0) Ur Specific Easley (1.001-1.035) Urine Protein (Negative) Urine Glucose (UA) (Negative) Urine Ketones (Negative) Urine Blood (Negative) Urine Nitrite (Negative) Urine Bilirubin (Negative) Urine Urobilinogen (<2.0) mg/dL Ur Leukocyte Esterase (Negative) Urine RBC (0-5) /hpf Urine WBC (0-5) /hpf Urine WBC Clumps (None) /hpf Ur Squamous Epith Cells (0-4) /hpf Amorphous Sediment (None) /hpf Urine Bacteria (None) /hpf Hyaline Casts (0-2) /lpf Urine Mucus (None) /hpf - Radiology Data Radiology results: report reviewed, image reviewed Disposition Clinical Impression: MANUEL (acute kidney injury), Ileus Disposition: ADMITTED IP TO THIS HOSP
[2022-05-08 11:44] LABS: Basophils # (A) 0.1 k/uL (0-0.2); Basophils % (A) 1 %; Eosinophils # (A) 0.1 k/uL (0-0.7); Eosinophils % (A) 1 %; HCT 38.5 % (34.0-46.0); HGB 12.2 gm/dL (11.4-16.0); Lymphocytes # (A) 1.5 k/uL (1.0-4.8); Lymphocytes % (A) 13 %; MCH 29.9 pg (25.0-35.0); MCHC 31.6 g/dL (31.0-37.0); MCV 94.5 fL (80.0-100.0); Mean Platelet Volume 8.8; Monocytes # (A) 0.7 k/uL (0-1.0); Monocytes % (A) 6 %; Neutrophils # (A) 8.8 k/uL (1.3-7.7); Neutrophils % (A) 77 %; Platelet Count 471 k/uL (150-450); RBC 4.07 m/uL (3.80-5.40); RDW 13.5 % (11.5-15.5); WBC 11.4 k/uL (3.8-10.6)
[2022-05-08 12:07] LABS: ALT 12 U/L (4-34); AST 24 U/L (14-36); African American GFR (CKD) 28 (>60 ml/min/1.73 sqM); Alkaline Phosphatase 62 U/L (38-126); Amylase <30 U/L (30-110); Anion Gap 15 mmol/L; Blood Urea Nitrogen 35 mg/dL (7-17); Calcium 9.4 mg/dL (8.4-10.2); Carbon Dioxide 33 mmol/L (22-30); Chloride 94 mmol/L (98-107); Glucose 137 mg/dL (74-99); Lipase 43 U/L (23-300); Non-African American GFR(CKD) 25 (>60 ml/min/1.73 sqM); Sodium 142 mmol/L (137-145); Total Bilirubin 0.8 mg/dL (0.2-1.3); Total Protein 6.7 g/dL (6.3-8.2)
[2022-05-08 12:32] LABS: Potassium 4.8 mmol/L (3.5-5.1)
[2022-05-08] MEDS ORDERED: SODIUM CHLORIDE 0.9% 1,000 ML IV STA (12:39)
--- NOTE | 2022-05-08 12:43 | CT ---
EXAMINATION TYPE: CT abdomen pelvis w con DATE OF EXAM: 05/08/2022 HISTORY: abd pain and distention CT DLP: 1732.8mGycm Automated Exposure Control for Dose Reduction was Utilized. CONTRAST: CT scan of the abdomen and pelvis is performed without oral and with IV Contrast, patient injected wi th 100 mL of Isovue 300. COMPARISON: None. FINDINGS: LUNG BASES: Calcified right hilar and subcarinal lymph nodes are present. Dependent atelectasis in th e lung bases. LIVER/GB: Cholecystectomy clips are seen. Common bile duct measures up to 8 to 9 mm which is within n ormal limits after cholecystectomy. PANCREAS: No significant abnormality is seen. SPLEEN: Location of calcification throughout the spleen consistent with product of old granulomatous disease. ADRENALS: No significant abnormality is seen. KIDNEYS: Symmetric cortical medullary uptake without hydronephrosis seen bilaterally. No visualized e xcretion on delayed images. There is small to moderate ill-defined fluid along lateral aspect left ki dney of uncertain etiology. There is 4.5 cm simple appearing thin-walled cyst exophytic from the medi al aspect upper pole left kidney. Barnett catheter decompresses bladder. BOWEL: No distal esophageal dilatation. Stomach not greatly distended. Prominent small and large bow el loops with multiple air-fluid levels. Dilated gas-filled colonic loops along the periphery. Termin al ileum appears within normal limits coronal image 67. Slight redundancy of the gas dilated sigmoid colon. Gastric distention to distal rectum is seen. UTERUS/ADNEXA: Uterus surgically absent or markedly atrophic. LYMPH NODES: No greater than 1cm abdominal or pelvic lymph nodes are appreciated. OSSEOUS STRUCTURES: Moderate multilevel spurring in the thoracolumbar spine. Slight grade 1 anterolis thesis L4 on L5. Moderate disc space narrowing L4-L5 level. OTHER: Posterior dystrophic calcifications possibly injection granulomas in the fatty soft tissue ove r the pelvis. IMPRESSION: Diffuse gastric prominence and air fluid levels throughout small and large bowel loops wi th greater distention of colonic loops noted. Findings extend to the distal rectum/anus. Findings sug gest a severe dynamic ileus over high-grade anal stricture or stenosis. Correlate clinically and with digital rectal exam.
[2022-05-08 12:46] LABS: Amorphous Sediment,Urine Few /hpf; Appearance,Urine Turbid (Clear); Bacteria,Urine Many /hpf; Bilirubin,Urine Negative (Negative); Blood,Urine Large (Negative); Color,Urine Light Red; Glucose,Urine (UA) Negative (Negative); Hyaline Casts,Urine 74 /lpf (0-2); Ketones,Urine Negative (Negative); Leukocyte Esterase,Urine Large (Negative); Mucus,Urine Many /hpf; Nitrite,Urine Negative (Negative); PH, Urine 5.5 (5.0-8.0); Protein,Urine 3+ (Negative); RBC,Urine 111 /hpf (0-5); Specific Gravity,Urine 1.017 (1.001-1.035); Squamous Epithelial Cell,Urine 4 /hpf (0-4); Urobilinogen,Urine <2.0 mg/dL (<2.0); WBC,Urine 159 /hpf (0-5)
[2022-05-08 13:02] LABS: T4, Free (Free Thyroxine) 1.53 ng/dL (0.78-2.19)
[2022-05-08] MEDS ORDERED: NALOXONE 0.4 MG/ML 1 ML VIAL IV PRN (13:12)
[2022-05-08] MEDS: SODIUM CHLORIDE 0.9% 1,000 ML IV SCH (14:47)
[2022-05-08 17:32] LABS: Glucose,Whole Blood 131 mg/dL (70-110)
[2022-05-08] MEDS ORDERED: cefTRIAXone IN SWFI 1,000 MG/10 ML SYRINGE IVP SCH (18:30)
[2022-05-08] MEDS: ONDANSETRON 4 MG/2 ML VIAL IVP PRN (20:39)
[2022-05-08] MEDS: MORPHINE SULFATE 2 MG/ML SYRINGE IVP PRN (20:40)
[2022-05-09] MEDS: MORPHINE SULFATE 2 MG/ML SYRINGE IVP PRN ×3 (02:28→14:03)
[2022-05-09] MEDS: SODIUM CHLORIDE 0.9% 1,000 ML IV SCH ×2 (02:29→09:23)
[2022-05-09 09:09] LABS: Basophils # (A) 0.05 X 10*3/uL (0.00-0.10); Basophils % (A) 0.4 %; Eosinophils # (A) 0.09 X 10*3/uL (0.04-0.35); Eosinophils % (A) 0.8 %; HCT 33.7 % (37.2-46.3); HGB 10.7 g/dL (12.0-15.0); Immature Grans, Automated 0.3 %; Lymphocytes # (A) 1.47 X 10*3/uL (0.90-5.00); Lymphocytes % (A) 12.7 %; MCH 30.2 pg (27.0-32.0); MCHC 31.8 g/dL (32.0-37.0); MCV 95.2 fL (80.0-97.0); Mean Platelet Volume 11.2 fL (9.5-12.2); Monocytes % (A) 10.4 %; NRBC Per 100 WBC 0 /100 WBCS (0.0-0.0); Neutrophils # (A) 8.72 X 10*3/uL (1.80-7.70); Neutrophils % (A) 75.4 %; Platelet Count 360 X 10*3/uL (140-440); RBC 3.54 X 10*6/uL (4.10-5.20); RDW 14.5 % (11.5-14.5); WBC 11.57 X 10*3/uL (4.50-10.00)
[2022-05-09 09:27] LABS: African American GFR (CKD) 17.5 (60.0-200.0); Albumin 3.7 g/dL (3.8-4.9); Albumin/Globulin Ratio 1.61 (1.60-3.17); Anion Gap 13.8 mmol/L (10.00-18.00); BUN/Creat Ratio 15.43 Ratio (12.00-20.00); Blood Urea Nitrogen 43.2 mg/dL (9.0-27.0); Calcium 9.1 mg/dL (8.7-10.3); Carbon Dioxide 31.2 mmol/L (20.0-27.5); Globulin 2.3 g/dL (1.6-3.3); Non-African American GFR(CKD) 15.1 (60.0-200.0); Potassium 4.3 mmol/L (3.5-5.5); Total Bilirubin 0.3 mg/dL (0.30-1.20)
[2022-05-09 11:56] LABS: Glucose,Whole Blood 136 mg/dL (70-110)
--- NOTE | 2022-05-09 13:07 | P.GSCN ---
History of Present Illness Consult date: 05/09/22 History of present illness: CHIEF COMPLAINT: Abdominal pain HISTORY OF PRESENT ILLNESS: This is a 82-year-old female who presented to hospital with complaints of abdominal pain and abdominal distention. She was residing at [facility] in [place] and was brought in via EMS. She had recent hospitalization about 3 days ago for altered mental status and UTI. Patient is currently lethargic. She awakes to her name and then falls back to sleep. Unable to obtain history from patient. Information was obtained from the chart. Apparently patient has had more confusion. She had been having vomiting and nausea. Her last bowel movement is unknown. Her past surgical history includes appendectomy, close second and hysterectomy also has a history of parathyroid gland cancer status post thyroidectomy. Computed tomography scan abdomen and pelvis demonstrated diffuse gastric prominence and air-fluid levels in small and large bowel loops with greater distention of colonic loops noted. Findings extending to the distal rectum/anus and suggests severe dynamic ileus over a high-grade anal stricture or stenosis. Last colonoscopy is unknown. Patient is also being evaluated by palliative care and hospice. CODE STATUS no code. PAST MEDICAL HISTORY: History of NC at age 34, parotid gland cancer, diabetes mellitus, hyperlipidemia and hypertension PAST SURGICAL HISTORY: See list. MEDICATIONS: See list. ALLERGIES: See list. SOCIAL HISTORY: No illicit drug use. REVIEW OF SYSTEMS: CONSTITUTIONAL: Denies fever or chills. HEENT: Denies blurred vision, vision changes, or eye pain. Denies hemoptysis CARDIOVASCULAR: Denies chest pain or pressure. RESPIRATORY: No shortness of breath. GASTROINTESTINAL: See HPI for pertinent findings HEMATOLOGIC: Denies bleeding disorders. GENITOURINARY: Denies any blood in urine or increased urinary frequency. SKIN: Denies pruitis. Denies rash. PHYSICAL EXAM: VITAL SIGNS: Reviewed GENERAL: Well-developed in no acute distress. HEENT: No sclera icterus. Extraocular movements grossly intact. Moist buccal mucosa. Head is atraumatic, normocephalic. No nasal drainage. ABDOMEN: Soft. Obese. Distended. Diffuse tenderness. Patient moans with palpation of abdomen NEUROLOGIC: Lethargic. Opens her eyes to name. LABORATORY DATA: WBC is 11.57 Hgb 10.7 platelets 360 Na 146 potassium 4.3 creatinine up 2.8 Lactic acid 3.2 down to 1.8 LFTs normal Lipase 43 TSH 36.100 and free T4 1.53 Urinalysis positive for UTI IMAGING: Computed tomography scan abdomen and pelvis demonstrated diffuse gastric prominence and air-fluid levels in small and large bowel loops with greater distention of colonic loops noted. Findings extending to the distal rectum/anus and suggests severe dynamic ileus over a high-grade anal stricture or stenosis. ASSESSMENT: 1. Abdominal pain with abdominal distention 2. Possible ileus 3. UTI 4. Acute kidney injury PLAN: -Further recommendations forthcoming per surgeon -Continue IV fluids -Keep patient nothing by mouth -Further recommendations forthcoming per surgeon -Continue antibiotics to treat UTI Physician Civil Engineering Professional note has been reviewed by physician. Signing provider agrees with the documented findings, assessment, and plan of care. I have personally seen and examined the patient, reviewed the CREDIT RESOLUTION REPRESENTATIVE /PAs history, exam and MDM and agree with the assessment and plan as written. Based on total visit time, I have performed more than 50% of the visit. As above: Patient with abdominal bloating and pain. She is tender in the lower abdomen on exam. CAT scan shows diffuse colonic dilation all the way down to the distal rectum. There is no evidence of obstruction on the CAT scan. Will order daily Dulcolax suppositories. Increase activity as tolerated. Per nursing staff patient is looking into transferred to the hospice house because of overall decline of health. We'll follow. Keep nothing by mouth for now. Past Medical History Past Medical History: Cancer, Diabetes Mellitus, Hyperlipidemia, Hypertension, Myocardial Infarction (NC), Thyroid Disorder Additional Past Medical History / Comment(s): HX. NC age 34, parotid gland cancer Last Myocardial Infarction Date:: 1973 History of Any Multi-Drug Resistant Organisms: None Reported Past Surgical History: Appendectomy, Breast Surgery, Cholecystectomy, Hysterectomy Additional Past Surgical History / Comment(s): HX. thyroidectomy, benign excisional left breast 2008 Past Anesthesia/Blood Transfusion Reactions: No Reported Reaction Past Psychological History: No Psychological Hx Reported Additional Psychological History / Comment(s): was living in [place], [place] alone in multilevel house, stays on main floor. Family helps with cleaning, laundry, shopping and taking to dr. tellez. Went to [facility] for rehab last discharge from [facility] on 04/15/22 Smoking Status: Heavy tobacco smoker Past Alcohol Use History: None Reported Past Drug Use History: None Reported - Past Family History Mother Family Medical History: Cancer Additional Family Medical History / Comment(s): OVARIAN Father Family Medical History: Myocardial Infarction (NC) Medications and Allergies Home Medications Medication Instructions Recorded Confirmed Type RX: Desmopressin Acetate [Ddavp] 0.3 mg PO HS 06/16/18 05/08/22 History RX: metFORMIN HCL [Glucophage] 1,000 mg PO DAILY 06/16/18 05/08/22 History RX: DULoxetine HCL [Cymbalta] 60 mg PO DAILY 04/10/22 05/08/22 History RX: buPROPion XL [Wellbutrin XL] 300 mg PO DAILY 04/10/22 05/08/22 History RX: Levothyroxine Sodium 150 mcg PO DAILY 04/18/22 05/08/22 History RX: Omeprazole 20 mg PO DAILY 04/18/22 05/08/22 History RX: Pramipexole [Mirapex] 0.25 mg PO HS 04/18/22 05/08/22 History RX: Sodium Chloride Tab 1 gm PO DAILY 04/18/22 05/08/22 History RX: Aspirin EC [Ecotrin Low Dose] 81 mg PO DAILY #1 tab 04/21/22 05/08/22 Rx RX: Cyanocobalamin [Vitamin B-12] 1,000 mcg PO DAILY tab 04/21/22 05/08/22 Rx RX: Tamsulosin [Flomax] 0.4 mg PO BID #60 cap 04/21/22 05/08/22 Rx Loperamide [Imodium] 2 mg PO Q6H PRN 05/08/22 05/08/22 History Nitrofurantoin Monohyd/M-Cryst 100 mg PO Q12HR 05/08/22 05/08/22 History [Macrobid] Ondansetron [Zofran] 4 mg PO Q6H PRN 05/08/22 05/08/22 History RX: INSULIN LISPRO (HumaLOG) See Protocol SQ AC-TID 05/08/22 05/08/22 History [humaLOG] Simvastatin [Zocor] 40 mg PO HS 05/08/22 05/08/22 History cloNIDine HCL [Catapres] 0.1 mg PO DAILY PRN 05/08/22 05/08/22 History Allergies Allergy/AdvReac Type Severity Reaction Status Date / Time adhesive tape Allergy Rash/Hives Verified 05/08/22 11:38 Surgical - Exam Vital Signs Temp Pulse Resp BP Pulse Ox 97.4 F L 95 20 115/64 92 L 05/08/22 11:05 05/08/22 11:05 05/08/22 11:05 05/08/22 11:05 05/08/22 11:05 Results - Labs 05/09/22 06:18 05/09/22 06:18 Abnormal Lab Results - Last 24 Hours (Table) 05/08/22 05/08/22 05/08/22 Range/Units 11:18 11:18 11:29 WBC 11.4 H (3.8-10.6) k/uL RBC (4.10-5.20) X 10*6/uL Hgb (12.0-15.0) g/dL Hct (37.2-46.3) % MCHC (32.0-37.0) g/dL Plt Count 471 H (150-450) k/uL Neutrophils # 8.8 H (1.3-7.7) k/uL Monocytes # (0.20-1.00) X 10*3/uL Sodium (135-145) mmol/L Chloride 94 L (98-107) mmol/L Carbon Dioxide 33 H (22-30) mmol/L BUN 35 H (7-17) mg/dL Creatinine 1.88 H (0.52-1.04) mg/dL Est GFR (CKD-EPI)AfAm (60.0-200.0) Est GFR (CKD-EPI)NonAf (60.0-200.0) Glucose 137 H (74-99) mg/dL POC Glucose (mg/dL) (70-110) mg/dL Plasma Lactic Acid Evangelist (0.7-2.0) mmol/L Total Protein (6.2-8.2) g/dL Albumin (3.8-4.9) g/dL Amylase <30 L (30-110) U/L TSH 36.100 H (0.465-4.680) mIU/L Urine Appearance Turbid H (Clear) Urine Protein 3+ H (Negative) Urine Blood Large H (Negative) Ur Leukocyte Esterase Large H (Negative) Urine RBC 111 H (0-5) /hpf Urine WBC 159 H (0-5) /hpf Urine WBC Clumps Many H (None) /hpf Amorphous Sediment Few H (None) /hpf Urine Bacteria Many H (None) /hpf Hyaline Casts 74 H (0-2) /lpf Urine Mucus Many H (None) /hpf 05/08/22 05/08/22 05/08/22 Range/Units 11:29 15:02 17:30 WBC (3.8-10.6) k/uL RBC (4.10-5.20) X 10*6/uL Hgb (12.0-15.0) g/dL Hct (37.2-46.3) % MCHC (32.0-37.0) g/dL Plt Count (150-450) k/uL Neutrophils # (1.3-7.7) k/uL Monocytes # (0.20-1.00) X 10*3/uL Sodium (135-145) mmol/L Chloride (98-107) mmol/L Carbon Dioxide (22-30) mmol/L BUN (7-17) mg/dL Creatinine (0.52-1.04) mg/dL Est GFR (CKD-EPI)AfAm (60.0-200.0) Est GFR (CKD-EPI)NonAf (60.0-200.0) Glucose (74-99) mg/dL POC Glucose (mg/dL) 131 H (70-110) mg/dL Plasma Lactic Acid Evangelist 3.2 H* 2.5 H* (0.7-2.0) mmol/L Total Protein (6.2-8.2) g/dL Albumin (3.8-4.9) g/dL Amylase (30-110) U/L TSH (0.465-4.680) mIU/L Urine Appearance (Clear) Urine Protein (Negative) Urine Blood (Negative) Ur Leukocyte Esterase (Negative) Urine RBC (0-5) /hpf Urine WBC (0-5) /hpf Urine WBC Clumps (None) /hpf Amorphous Sediment (None) /hpf Urine Bacteria (None) /hpf Hyaline Casts (0-2) /lpf Urine Mucus (None) /hpf 05/08/22 05/08/22 05/09/22 Range/Units 18:01 20:42 06:18 WBC 11.57 H (3.8-10.6) k/uL RBC 3.54 L (4.10-5.20) X 10*6/uL Hgb 10.7 L (12.0-15.0) g/dL Hct 33.7 L (37.2-46.3) % MCHC 31.8 L (32.0-37.0) g/dL Plt Count (150-450) k/uL Neutrophils # 8.72 H (1.3-7.7) k/uL Monocytes # 1.20 H (0.20-1.00) X 10*3/uL Sodium (135-145) mmol/L Chloride (98-107) mmol/L Carbon Dioxide (22-30) mmol/L BUN (7-17) mg/dL Creatinine (0.52-1.04) mg/dL Est GFR (CKD-EPI)AfAm (60.0-200.0) Est GFR (CKD-EPI)NonAf (60.0-200.0) Glucose (74-99) mg/dL POC Glucose (mg/dL) (70-110) mg/dL Plasma Lactic Acid Evangelist 2.6 H* 2.2 H* (0.7-2.0) mmol/L Total Protein (6.2-8.2) g/dL Albumin (3.8-4.9) g/dL Amylase (30-110) U/L TSH (0.465-4.680) mIU/L Urine Appearance (Clear) Urine Protein (Negative) Urine Blood (Negative) Ur Leukocyte Esterase (Negative) Urine RBC (0-5) /hpf Urine WBC (0-5) /hpf Urine WBC Clumps (None) /hpf Amorphous Sediment (None) /hpf Urine Bacteria (None) /hpf Hyaline Casts (0-2) /lpf Urine Mucus (None) /hpf 05/09/22 Range/Units 06:18 WBC (3.8-10.6) k/uL RBC (4.10-5.20) X 10*6/uL Hgb (12.0-15.0) g/dL Hct (37.2-46.3) % MCHC (32.0-37.0) g/dL Plt Count (150-450) k/uL Neutrophils # (1.3-7.7) k/uL Monocytes # (0.20-1.00) X 10*3/uL Sodium 146 H (135-145) mmol/L Chloride (98-107) mmol/L Carbon Dioxide 31.2 H (22-30) mmol/L BUN 43.2 H (7-17) mg/dL Creatinine 2.8 H (0.52-1.04) mg/dL Est GFR (CKD-EPI)AfAm 17.5 L (60.0-200.0) Est GFR (CKD-EPI)NonAf 15.1 L (60.0-200.0) Glucose 139 H (74-99) mg/dL POC Glucose (mg/dL) (70-110) mg/dL Plasma Lactic Acid Evangelist (0.7-2.0) mmol/L Total Protein 6.0 L (6.2-8.2) g/dL Albumin 3.7 L (3.8-4.9) g/dL Amylase (30-110) U/L TSH (0.465-4.680) mIU/L Urine Appearance (Clear) Urine Protein (Negative) Urine Blood (Negative) Ur Leukocyte Esterase (Negative) Urine RBC (0-5) /hpf Urine WBC (0-5) /hpf Urine WBC Clumps (None) /hpf Amorphous Sediment (None) /hpf Urine Bacteria (None) /hpf Hyaline Casts (0-2) /lpf Urine Mucus (None) /hpf Microbiology - Last 24 Hours (Table) 05/08/22 11:29 Urine Culture - Preliminary Urine,Voided Diabetes panel 05/08/22 05/09/22 Range/Units 11:18 06:18 Sodium 142 146 H (137-145) mmol/L Potassium 4.8 4.3 (3.5-5.1) mmol/L Chloride 94 L 101 (98-107) mmol/L Carbon Dioxide 33 H 31.2 H (22-30) mmol/L BUN 35 H 43.2 H (7-17) mg/dL Creatinine 1.88 H 2.8 H (0.52-1.04) mg/dL Glucose 137 H 139 H (74-99) mg/dL Calcium 9.4 9.1 (8.4-10.2) mg/dL AST 24 16 (14-36) U/L ALT 12 11 (4-34) U/L Alkaline Phosphatase 62 69 (38-126) U/L Total Protein 6.7 6.0 L (6.3-8.2) g/dL Albumin 4.0 3.7 L (3.5-5.0) g/dL Thyroid panel 05/08/22 Range/Units 11:18 TSH 36.100 H (0.465-4.680) mIU/L Calcium panel 05/08/22 05/09/22 Range/Units 11:18 06:18 Calcium 9.4 9.1 (8.4-10.2) mg/dL Albumin 4.0 3.7 L (3.5-5.0) g/dL Pituitary panel 05/08/22 05/09/22 Range/Units 11:18 06:18 Sodium 142 146 H (137-145) mmol/L Potassium 4.8 4.3 (3.5-5.1) mmol/L Chloride 94 L 101 (98-107) mmol/L Carbon Dioxide 33 H 31.2 H (22-30) mmol/L BUN 35 H 43.2 H (7-17) mg/dL Creatinine 1.88 H 2.8 H (0.52-1.04) mg/dL Glucose 137 H 139 H (74-99) mg/dL Calcium 9.4 9.1 (8.4-10.2) mg/dL TSH 36.100 H (0.465-4.680) mIU/L Adrenal panel 05/08/22 05/09/22 Range/Units 11:18 06:18 Sodium 142 146 H (137-145) mmol/L Potassium 4.8 4.3 (3.5-5.1) mmol/L Chloride 94 L 101 (98-107) mmol/L Carbon Dioxide 33 H 31.2 H (22-30) mmol/L BUN 35 H 43.2 H (7-17) mg/dL Creatinine 1.88 H 2.8 H (0.52-1.04) mg/dL Glucose 137 H 139 H (74-99) mg/dL Calcium 9.4 9.1 (8.4-10.2) mg/dL Total Bilirubin 0.8 0.30 (0.2-1.3) mg/dL AST 24 16 (14-36) U/L ALT 12 11 (4-34) U/L Alkaline Phosphatase 62 69 (38-126) U/L Total Protein 6.7 6.0 L (6.3-8.2) g/dL Albumin 4.0 3.7 L (3.5-5.0) g/dL
--- NOTE | 2022-05-09 16:13 | P.CONS ---
History of Present Illness - Reason for Consult Consult date: 05/09/22 goals of care and emotional support Requesting physician: Odilia Sal - Chief Complaint Abdominal pain - History of Present Illness The patient is an 82 year-old female with PMH of diabetes, hypothyroidism, diabetes, hyperlipidemia, CO, and depression. She presented to the emergency department on 05/08/22 with complaints of abdominal pain and distention. Patient brought by EMS from [facility] in [place]. Patient was here 2 days ago for altered mental status and diagnosed with a UTI. Over the last day, the patient has been complaining of abdominal pain and the staff at [facility] has noted abdominal distention. She has also been vomiting. She denied any fevers, chills, sore throat, cough, dyspnea, chest pain, palpitations, diarrhea, back pain, or headaches.H er [id number] was with her in the emergency department and stated that approximately one month ago, she was cognitively intact, driving, walking around, and caring for herself independently. Her mental status has a drastic decline since then. Her daughter would like to discuss hospice placement due to this severe decline and in order to keep the patient comfortable. However, they would like to proceed with general medical treatment for the meantime in the event she is able to improve. Review of Systems Constitutional: Reports as per HPI Past Medical History Past Medical History: Cancer, Diabetes Mellitus, Hyperlipidemia, Hypertension, Myocardial Infarction (CO), Thyroid Disorder Additional Past Medical History / Comment(s): HX. 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 thyroidectomy, benign excisional left breast 2007 Past Anesthesia/Blood Transfusion Reactions: No Reported Reaction Past Psychological History: No Psychological Hx Reported Additional Psychological History / Comment(s): was living in [place], [place] alone in multilevel house, stays on main floor. Family helps with cleaning, laundry, shopping and taking to dr. tellez. Went to [facility] for rehab last discharge from [facility] on 04/15/22 Smoking Status: Heavy tobacco smoker Past Alcohol Use History: None Reported Past Drug Use History: None Reported - Past Family History Mother Family Medical History: Cancer Additional Family Medical History / Comment(s): OVARIAN Father Family Medical History: Myocardial Infarction (CO) Medications and Allergies Home Medications Medication Instructions Recorded Confirmed Type Desmopressin Acetate [Ddavp] 0.3 mg PO HS 06/16/18 05/08/22 History metFORMIN HCL [Glucophage] 1,000 mg PO DAILY 06/16/18 05/08/22 History DULoxetine HCL [Cymbalta] 60 mg PO DAILY 04/10/22 05/08/22 History buPROPion XL [Wellbutrin XL] 300 mg PO DAILY 04/10/22 05/08/22 History Levothyroxine Sodium 150 mcg PO DAILY 04/18/22 05/08/22 History Omeprazole 20 mg PO DAILY 04/18/22 05/08/22 History Pramipexole [Mirapex] 0.25 mg PO HS 04/18/22 05/08/22 History Sodium Chloride Tab 1 gm PO DAILY 04/18/22 05/08/22 History Aspirin EC [Ecotrin Low Dose] 81 mg PO DAILY #1 tab 04/21/22 05/08/22 Rx Cyanocobalamin [Vitamin B-12] 1,000 mcg PO DAILY tab 04/21/22 05/08/22 Rx Tamsulosin [Flomax] 0.4 mg PO BID #60 cap 04/21/22 05/08/22 Rx INSULIN LISPRO (HumaLOG) [humaLOG] See Protocol SQ AC-TID 05/08/22 05/08/22 History Loperamide [Imodium] 2 mg PO Q6H PRN 05/08/22 05/08/22 History Nitrofurantoin Monohyd/M-Cryst 100 mg PO Q12HR 05/08/22 05/08/22 History [Macrobid] Ondansetron [Zofran] 4 mg PO Q6H PRN 05/08/22 05/08/22 History Simvastatin [Zocor] 40 mg PO HS 05/08/22 05/08/22 History cloNIDine HCL [Catapres] 0.1 mg PO DAILY PRN 05/08/22 05/08/22 History Allergies Allergy/AdvReac Type Severity Reaction Status Date / Time adhesive tape Allergy Rash/Hives Verified 05/08/22 11:38 Physical Exam Vitals: Vital Signs Temp Pulse Pulse Resp BP BP Pulse Ox 05/09/22 08:00 98.8 F 92 16 121/72 92 L 05/09/22 02:00 98.6 F 94 16 112/63 93 L 05/08/22 20:00 98.2 F 90 18 118/69 97 05/08/22 17:50 98.7 F 89 16 117/69 94 L 05/08/22 17:23 82 18 94/52 4 L 05/08/22 15:09 86 22 94/61 93 L 05/08/22 13:32 91 18 122/84 94 L Intake and Output 05/08/22 05/09/22 05/09/22 22:59 06:59 14:59 Intake Total 50 Output Total 250 Balance 50 -250 Intake: Intake, IV Titration 50 Amount cefTRIAXone 1 gm In 50 Sodium Chloride 0.9% 50 ml @ 100 mls/hr IVPB Q24HR [facility] Rx#:[id number] Output: Urine 250 Other: Voiding Method Indwelling Catheter Weight 81.647 kg General: Well developed, well nourished. No acute distress. Chronically ill appearing. HEENT: Head is atraumatic, normocephalic. Sclerae are clear. Pupils equal, round and reactive to light bilaterally. Mucus membranes moist. CV: Heart regular in rate and rhythm positive S1 and S2. No clicks, rubs or murmurs. Peripheral pulses equal. 2/4 Lungs: Clear to auscultation bilaterally. No wheezes rales or rhonchi. Respirations even and nonlabored. On 4L O2 via NC Abdomen/GI: Soft. Bowel sounds present in all 4 quadrants.No guarding, rigidity, or abdominal tenderness. : Barnett catheter present Musculoskeletal/ Extremities: WILSON, no joint deformity or swelling. No gross atrophy. + generalized weakness Vascular: Radial pulses equal. 2/4. + peripheral edema Skin: Warm and dry, No rash or lesions. Neurologic: Lethargic, difficulty staying awake. Opens her eyes with verbal and tactile stimulation. Speech difficult to understand. Obeys some commands. Psychiatric: Unable to assess, refuses to answer questions/unable to stay awake Results CBC & Chem 7: 05/09/22 06:18 05/09/22 06:18 Labs: Abnormal Lab Results - Last 24 Hours (Table) 05/08/22 05/08/22 05/08/22 Range/Units 11:18 11:18 11:29 WBC 11.4 H (3.8-10.6) k/uL RBC (4.10-5.20) X 10*6/uL Hgb (12.0-15.0) g/dL Hct (37.2-46.3) % MCHC (32.0-37.0) g/dL Plt Count 471 H (150-450) k/uL Neutrophils # 8.8 H (1.3-7.7) k/uL Monocytes # (0.20-1.00) X 10*3/uL Sodium (135-145) mmol/L Chloride 94 L (98-107) mmol/L Carbon Dioxide 33 H (22-30) mmol/L BUN 35 H (7-17) mg/dL Creatinine 1.88 H (0.52-1.04) mg/dL Est GFR (CKD-EPI)AfAm (60.0-200.0) Est GFR (CKD-EPI)NonAf (60.0-200.0) Glucose 137 H (74-99) mg/dL POC Glucose (mg/dL) (70-110) mg/dL Plasma Lactic Acid Evangelist (0.7-2.0) mmol/L Total Protein (6.2-8.2) g/dL Albumin (3.8-4.9) g/dL Amylase <30 L (30-110) U/L TSH 36.100 H (0.465-4.680) mIU/L Urine Appearance Turbid H (Clear) Urine Protein 3+ H (Negative) Urine Blood Large H (Negative) Ur Leukocyte Esterase Large H (Negative) Urine RBC 111 H (0-5) /hpf Urine WBC 159 H (0-5) /hpf Urine WBC Clumps Many H (None) /hpf Amorphous Sediment Few H (None) /hpf Urine Bacteria Many H (None) /hpf Hyaline Casts 74 H (0-2) /lpf Urine Mucus Many H (None) /hpf 05/08/22 05/08/22 05/08/22 Range/Units 11:29 15:02 17:30 WBC (3.8-10.6) k/uL RBC (4.10-5.20) X 10*6/uL Hgb (12.0-15.0) g/dL Hct (37.2-46.3) % MCHC (32.0-37.0) g/dL Plt Count (150-450) k/uL Neutrophils # (1.3-7.7) k/uL Monocytes # (0.20-1.00) X 10*3/uL Sodium (135-145) mmol/L Chloride (98-107) mmol/L Carbon Dioxide (22-30) mmol/L BUN (7-17) mg/dL Creatinine (0.52-1.04) mg/dL Est GFR (CKD-EPI)AfAm (60.0-200.0) Est GFR (CKD-EPI)NonAf (60.0-200.0) Glucose (74-99) mg/dL POC Glucose (mg/dL) 131 H (70-110) mg/dL Plasma Lactic Acid Evangelist 3.2 H* 2.5 H* (0.7-2.0) mmol/L Total Protein (6.2-8.2) g/dL Albumin (3.8-4.9) g/dL Amylase (30-110) U/L TSH (0.465-4.680) mIU/L Urine Appearance (Clear) Urine Protein (Negative) Urine Blood (Negative) Ur Leukocyte Esterase (Negative) Urine RBC (0-5) /hpf Urine WBC (0-5) /hpf Urine WBC Clumps (None) /hpf Amorphous Sediment (None) /hpf Urine Bacteria (None) /hpf Hyaline Casts (0-2) /lpf Urine Mucus (None) /hpf 05/08/22 05/08/22 05/09/22 Range/Units 18:01 20:42 06:18 WBC 11.57 H (3.8-10.6) k/uL RBC 3.54 L (4.10-5.20) X 10*6/uL Hgb 10.7 L (12.0-15.0) g/dL Hct 33.7 L (37.2-46.3) % MCHC 31.8 L (32.0-37.0) g/dL Plt Count (150-450) k/uL Neutrophils # 8.72 H (1.3-7.7) k/uL Monocytes # 1.20 H (0.20-1.00) X 10*3/uL Sodium (135-145) mmol/L Chloride (98-107) mmol/L Carbon Dioxide (22-30) mmol/L BUN (7-17) mg/dL Creatinine (0.52-1.04) mg/dL Est GFR (CKD-EPI)AfAm (60.0-200.0) Est GFR (CKD-EPI)NonAf (60.0-200.0) Glucose (74-99) mg/dL POC Glucose (mg/dL) (70-110) mg/dL Plasma Lactic Acid Evangelist 2.6 H* 2.2 H* (0.7-2.0) mmol/L Total Protein (6.2-8.2) g/dL Albumin (3.8-4.9) g/dL Amylase (30-110) U/L TSH (0.465-4.680) mIU/L Urine Appearance (Clear) Urine Protein (Negative) Urine Blood (Negative) Ur Leukocyte Esterase (Negative) Urine RBC (0-5) /hpf Urine WBC (0-5) /hpf Urine WBC Clumps (None) /hpf Amorphous Sediment (None) /hpf Urine Bacteria (None) /hpf Hyaline Casts (0-2) /lpf Urine Mucus (None) /hpf 05/09/22 Range/Units 06:18 WBC (3.8-10.6) k/uL RBC (4.10-5.20) X 10*6/uL Hgb (12.0-15.0) g/dL Hct (37.2-46.3) % MCHC (32.0-37.0) g/dL Plt Count (150-450) k/uL Neutrophils # (1.3-7.7) k/uL Monocytes # (0.20-1.00) X 10*3/uL Sodium 146 H (135-145) mmol/L Chloride (98-107) mmol/L Carbon Dioxide 31.2 H (22-30) mmol/L BUN 43.2 H (7-17) mg/dL Creatinine 2.8 H (0.52-1.04) mg/dL Est GFR (CKD-EPI)AfAm 17.5 L (60.0-200.0) Est GFR (CKD-EPI)NonAf 15.1 L (60.0-200.0) Glucose 139 H (74-99) mg/dL POC Glucose (mg/dL) (70-110) mg/dL Plasma Lactic Acid Evangelist (0.7-2.0) mmol/L Total Protein 6.0 L (6.2-8.2) g/dL Albumin 3.7 L (3.8-4.9) g/dL Amylase (30-110) U/L TSH (0.465-4.680) mIU/L Urine Appearance (Clear) Urine Protein (Negative) Urine Blood (Negative) Ur Leukocyte Esterase (Negative) Urine RBC (0-5) /hpf Urine WBC (0-5) /hpf Urine WBC Clumps (None) /hpf Amorphous Sediment (None) /hpf Urine Bacteria (None) /hpf Hyaline Casts (0-2) /lpf Urine Mucus (None) /hpf Microbiology - Last 24 Hours (Table) 05/08/22 11:29 Urine Culture - Preliminary Urine,Voided Chest x-ray: report reviewed CT scan - abdomen: report reviewed Assessment and Plan Assessment: Social * Occupation - Housewife/homemaker * Marital status - * Children/grandchildren - 1 son, Ashvin * Residence - From [facility], previously lived alone in a house * ETOH - Rare * Tobacco - Quit 03/2022 * Illicit drugs - No Spiritual/Cultural * A spiritual person - Yrs * Church - [employer] * Belong to a particular baptist - No * Beliefs a source of comfort and strength - Yes * Scientology or cultural practices restrictions - No * EOL considerations/rituals - None Functional Assessment * Able to walk independently - No, can stand with assist and pivot to chair * Assistive devices - wheelchair * Able to use the bathroom independently - No * Continent - No * Require assistance bathing- Yes * Able to feed self - No, 1:1 feed * Who prepares meals - [facility] * Able to clean house/do laundry - No * Transportation - Son * Able to shop - No * Who manages medications - [facility] * Who manages finances - Son Psychological/Emotional * Dementia present - Yes * Insight and judgment - Not intact * Depression - Yes * Suicidal thoughts - No * Good support system - Yes * Patients goals - Comfort * Frequent hospitalizations - Yes * Desire to keep coming back to the hospital for treatment - No Symptoms * Pain - score CPOT 2/10, continue Ofirmev and Morphine * Fatigue - + generalized weakness and fatigue * SOB - Yes * Insomnia - No * N/V - No, continue Zofran prn * Anxiety - No * Depression - No * Confusion - Yes * Agitation - No * Hallucinations - No * Appetite/weight loss - Decreased appetite, no recent weight loss * Dysphagia - No * Constipation - Unknown * Incontinence - Yes * Itch - No Plan: Summary/Goals - The patient is resting in bed. She is lethargic and answers questions intermittently. She does follow commands. Met with the patient's son, Ashvin, and daughter in-law, Esme. Palliative care and hospice philosophies and services explained in detail. They are concerned at the patient's quick decline. She was completely independent and lived alone until she fell at home in the beginning of March. Both her mental and physical status has declined significantly. She had even stopped taking her medication. She was sent to a [facility] following her fall, and has had several hospital re-admissions since. The family believes that she would not want to keep coming back and forth to the hospital and would want comfort care. They are interested in the [facility]. Referral sent and spoke directly to patient liaisonNathalia. Recommendations - [facility] Advanced Directives - None on file Code Status - DNR Thank you for this consult Betty Poole [facility]- Palliative Care [facility] [id number] Email: [email or web address] Time with Patient: Greater than 30
[2022-05-09 16:59] LABS: Glucose,Whole Blood 137 mg/dL (70-110)
[2022-05-09] MEDS ORDERED: DEXTROSE 50% SYRINGE 50 ML IVP PRN ×2 (17:22)
--- NOTE | 2022-05-09 17:28 | P.HPIM ---
History of Present Illness H&P Date: 05/09/22 Chief Complaint: Acute renal failure, ileus, weakness This is an 82-year-old female recently discharged with acute UTI, mental status changes in a patient with PMH of recent falls , acute UTI cystitis ,diabetes insipidus, hypothyroidism, diabetes, hyperlipidemia and depression, transferred from the [facility] rehab to the hospital with complaints of abdominal pain, significant distention, nausea, vomiting , increased confusion and multiple other medical issues. Patient unable to provide information, lethargic, continues to fall back asleep. Daughter Laurel via telephone reported that patient was found Thursday on the floor, Thursday confusion worsened and by Thursday patient was complaining of abdominal pain. Reports in March her mom is independent, driving, performing all ADLs, sustained a few falls, continued to decline since. She has not been walking, no longer feeding herself, not taking her medications. Family feels that her quality of life is missing and requesting hospice consult. CT reported diffuse gastric prominence, air-fluid levels throughout small and large bowel loops with greater distention of colonic loops noted. Findings extending to the distal rectum/anus, suggesting a severe dynamic ileus over high-grade antral stricture or stenosis .Ammonia 13, afebrile, and WBC 11.57, hemoglobin 10.7, platelets 360m sodium 146, potassium 4.3, bicarb 31.2, BUN 43.2, creatinine 2.8 Review of Systems Review of systems currently unable to obtain, patient is lethargic,unable to provide information. 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 thyroidectomy, benign excisional left breast 2007 Past Anesthesia/Blood Transfusion Reactions: No Reported Reaction Past Psychological History: No Psychological Hx Reported Additional Psychological History / Comment(s): was living in [place], [place] alone in multilevel house, stays on main floor. Family helps with cleaning, laundry, shopping and taking to dr. tellez. Went to [facility] for rehab last discharge from [facility] on 04/15/22 Smoking Status: Heavy tobacco smoker Past Alcohol Use History: None Reported Past Drug Use History: None Reported - Past Family History Mother Family Medical History: Cancer Additional Family Medical History / Comment(s): OVARIAN Father Family Medical History: Myocardial Infarction (DC) Medications and Allergies Home Medications Medication Instructions Recorded Confirmed Type Desmopressin Acetate [Ddavp] 0.3 mg PO HS 06/16/18 05/08/22 History metFORMIN HCL [Glucophage] 1,000 mg PO DAILY 06/16/18 05/08/22 History DULoxetine HCL [Cymbalta] 60 mg PO DAILY 04/10/22 05/08/22 History buPROPion XL [Wellbutrin XL] 300 mg PO DAILY 04/10/22 05/08/22 History Levothyroxine Sodium 150 mcg PO DAILY 04/18/22 05/08/22 History Omeprazole 20 mg PO DAILY 04/18/22 05/08/22 History Pramipexole [Mirapex] 0.25 mg PO HS 04/18/22 05/08/22 History Sodium Chloride Tab 1 gm PO DAILY 04/18/22 05/08/22 History Aspirin EC [Ecotrin Low Dose] 81 mg PO DAILY #1 tab 04/21/22 05/08/22 Rx Cyanocobalamin [Vitamin B-12] 1,000 mcg PO DAILY tab 04/21/22 05/08/22 Rx Tamsulosin [Flomax] 0.4 mg PO BID #60 cap 04/21/22 05/08/22 Rx INSULIN LISPRO (HumaLOG) [humaLOG] See Protocol SQ AC-TID 05/08/22 05/08/22 History Loperamide [Imodium] 2 mg PO Q6H PRN 05/08/22 05/08/22 History Nitrofurantoin Monohyd/M-Cryst 100 mg PO Q12HR 05/08/22 05/08/22 History [Macrobid] Ondansetron [Zofran] 4 mg PO Q6H PRN 05/08/22 05/08/22 History Simvastatin [Zocor] 40 mg PO HS 05/08/22 05/08/22 History cloNIDine HCL [Catapres] 0.1 mg PO DAILY PRN 05/08/22 05/08/22 History Allergies Allergy/AdvReac Type Severity Reaction Status Date / Time adhesive tape Allergy Rash/Hives Verified 05/08/22 11:38 Physical Exam Vitals: Vital Signs Temp Pulse Pulse Resp BP BP Pulse Ox 05/09/22 14:00 98.9 F 84 17 125/79 94 L 05/09/22 08:00 98.8 F 92 16 121/72 92 L 05/09/22 07:32 20 05/09/22 02:00 98.6 F 94 16 112/63 93 L 05/08/22 20:00 98.2 F 90 18 118/69 97 05/08/22 17:50 98.7 F 89 16 117/69 94 L 05/08/22 17:23 82 18 94/52 4 L Intake and Output 05/09/22 05/09/22 05/09/22 06:59 14:59 22:59 Output Total 250 Balance -250 Output: Urine 250 Other: Voiding Method Indwelling Catheter General: well nourished, well developed, lethargic, Eyes: PERRL, EOMI, conjunctiva normal HENT: normocephalic, lips dry Neck: supple, no JVD Lungs: normal respiratory effort, no wheezes or rales CV: Regular rate and rhythm, no murmur. Peripheral pulses 2+ Abdomen: soft, distended, no guarding, hypoactive bowel sounds Lymph: no cervical or axillary LAD Skin: warm and dry. Neuro: Limited assessment, alert and oriented 1. Intermittently follows simple commands. Results CBC & Chem 7: 05/09/22 06:18 05/09/22 06:18 Labs: Abnormal Lab Results - Last 24 Hours (Table) 05/08/22 05/08/22 05/08/22 Range/Units 17:30 18:01 20:42 WBC (4.50-10.00) X 10*3/uL RBC (4.10-5.20) X 10*6/uL Hgb (12.0-15.0) g/dL Hct (37.2-46.3) % MCHC (32.0-37.0) g/dL Neutrophils # (1.80-7.70) X 10*3/uL Monocytes # (0.20-1.00) X 10*3/uL Sodium (135-145) mmol/L Carbon Dioxide (20.0-27.5) mmol/L BUN (9.0-27.0) mg/dL Creatinine (0.6-1.5) mg/dL Est GFR (CKD-EPI)AfAm (60.0-200.0) Est GFR (CKD-EPI)NonAf (60.0-200.0) Glucose (70-110) mg/dL POC Glucose (mg/dL) 131 H (70-110) mg/dL Plasma Lactic Acid Evangelist 2.6 H* 2.2 H* (0.7-2.0) mmol/L Total Protein (6.2-8.2) g/dL Albumin (3.8-4.9) g/dL 05/09/22 05/09/22 05/09/22 Range/Units 06:18 06:18 11:54 WBC 11.57 H (4.50-10.00) X 10*3/uL RBC 3.54 L (4.10-5.20) X 10*6/uL Hgb 10.7 L (12.0-15.0) g/dL Hct 33.7 L (37.2-46.3) % MCHC 31.8 L (32.0-37.0) g/dL Neutrophils # 8.72 H (1.80-7.70) X 10*3/uL Monocytes # 1.20 H (0.20-1.00) X 10*3/uL Sodium 146 H (135-145) mmol/L Carbon Dioxide 31.2 H (20.0-27.5) mmol/L BUN 43.2 H (9.0-27.0) mg/dL Creatinine 2.8 H (0.6-1.5) mg/dL Est GFR (CKD-EPI)AfAm 17.5 L (60.0-200.0) Est GFR (CKD-EPI)NonAf 15.1 L (60.0-200.0) Glucose 139 H (70-110) mg/dL POC Glucose (mg/dL) 136 H (70-110) mg/dL Plasma Lactic Acid Evangelist (0.7-2.0) mmol/L Total Protein 6.0 L (6.2-8.2) g/dL Albumin 3.7 L (3.8-4.9) g/dL Microbiology - Last 24 Hours (Table) 05/08/22 11:29 Urine Culture - Preliminary Urine,Voided Gram Neg Bacilli Assessment and Plan Assessment: Abdominal pain, CT suggesting 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 surgery following Acute recurrent UTI, culture pending Acute renal failure, baseline creatinine 0.9. Acute urinary retention, Barnett catheter Acute metabolic encephalopathy secondary to the above Recent frequent admissions secondary to frequent falls, profound hypothyroidism, bradycardia Dementia. Suspected small vessel disease, possible chronic bilateral basal ganglia elected or infarct as per neurology's previous workup. Anxiety, depression Hypothyroidism, recently discovered with profound hypothyroidism, dose had been increased Diabetes insipidus, on desmopressin Diabetes mellitus type 2, A1c 7.3 Anxiety, depression No code, no CPR, no intubation Plan: Continue on current medication regime ,monitoring and symptomatic t reatment. General surgery consult in place. IV fluid hydration. Hospice consulted as per family's request related to patient's continued decline since March and did not want aggressive measures. Family open to possibly conservative management as per general surgery, pending their options offered- but declining any surgery. Prognosis guarded given multiple complex medical issues. Nephrology consulted, as at this time patient is not hospice.Maintain supportive care. The impression and plan of care has been dictated as directed. : I performed a history and examination of this patient, discussed the same with the dictator. I agree with the dictator's note ,documented as a scribe. Any additional findings or plans will be noted.
[2022-05-09] MEDS: bisacodyL 10 MG SUPP RECTAL SCH (18:24)
[2022-05-09] MEDS: INSULIN ASPART (NovoLOG) 100 UNIT/ML VIAL SQ SCH ×2 (18:25→22:01)
[2022-05-09 21:57] LABS: Glucose,Whole Blood 143 mg/dL (70-110)
[2022-05-10 00:05] LABS: Glucose,Whole Blood 136 mg/dL (70-110)
[2022-05-10] MEDS: ONDANSETRON 4 MG/2 ML VIAL IVP PRN (04:59)
[2022-05-10] MEDS: MORPHINE SULFATE 2 MG/ML SYRINGE IVP PRN (05:00)
[2022-05-10] MEDS: SODIUM CHLORIDE 0.9% 1,000 ML IV SCH ×2 (05:03→14:22)
[2022-05-10 05:49] LABS: Glucose,Whole Blood 138 mg/dL (70-110)
[2022-05-10] MEDS: INSULIN ASPART (NovoLOG) 100 UNIT/ML VIAL SQ SCH ×3 (05:50→19:11)
--- NOTE | 2022-05-10 08:15 | P.NPCON ---
History of Present Illness - Reason for Consult Consult date: 05/10/22 acute renal failure - Chief Complaint Confusion - History of Present Illness This is a 82-year-old female seen in consultation because of acute kidney injury. Creatinine was 1.8 and worsened to 2.8 this morning. Previous creatinine was 0.81 on 05/06/2022 2 days prior to this admission Patient is recently admitted 04/18/2022 and discharged 04/22/2022 with altered mental status changes metabolic encephalopathy and possible basal ganglia lacunar infarct as per neurology, urine tract infection with Enterobacter cloacae. She was readmitted with again mental status changes recent falls. She is unable to give any reliable history. She is known in the past with diabetes of on non-., History of parotid gland cancer, history of myocardial infarction thyroidectomy and hysterectomy cholecy stectomy and breast surgery and appendectomy Since admission her vital signs are stable blood pressure in the 120 to 1:30 systolic range afebrile. Intake documentation is inaccurate she is on IV fluids normal saline output is 1400 mL. Past Medical History Past Medical History: Cancer, Diabetes Mellitus, Hyperlipidemia, Hypertension, Myocardial Infarction ([place]), Thyroid Disorder Additional Past Medical History / Comment(s): HX. [place] age 34, parotid gland cancer Last Myocardial Infarction Date:: 1973 History of Any Multi-Drug Resistant Organisms: None Reported Past Surgical History: Appendectomy, Breast Surgery, Cholecystectomy, Hysterectomy Additional Past Surgical History / Comment(s): HX. thyroidectomy, benign excisional left breast 2007 Past Anesthesia/Blood Transfusion Reactions: No Reported Reaction Past Psychological History: No Psychological Hx Reported Additional Psychological History / Comment(s): was living in [place], [place] alone in multilevel house, stays on main floor. Family helps with cleaning, laundry, shopping and taking to dr. tellez. Went to [facility] for rehab last discharge from [facility] on 04/15/22 Smoking Status: Heavy tobacco smoker Past Alcohol Use History: None Reported Past Drug Use History: None Reported - Past Family History Mother Family Medical History: Cancer Additional Family Medical History / Comment(s): OVARIAN Father Family Medical History: Myocardial Infarction ([place]) Medications and Allergies Home Medications Medication Instructions Recorded Confirmed Type Desmopressin Acetate [Ddavp] 0.3 mg PO HS 06/16/18 05/08/22 History metFORMIN HCL [Glucophage] 1,000 mg PO DAILY 06/16/18 05/08/22 History DULoxetine HCL [Cymbalta] 60 mg PO DAILY 04/10/22 05/08/22 History buPROPion XL [Wellbutrin XL] 300 mg PO DAILY 04/10/22 05/08/22 History Levothyroxine Sodium 150 mcg PO DAILY 04/18/22 05/08/22 History Omeprazole 20 mg PO DAILY 04/18/22 05/08/22 History Pramipexole [Mirapex] 0.25 mg PO HS 04/18/22 05/08/22 History Sodium Chloride Tab 1 gm PO DAILY 04/18/22 05/08/22 History Aspirin EC [Ecotrin Low Dose] 81 mg PO DAILY #1 tab 04/21/22 05/08/22 Rx Cyanocobalamin [Vitamin B-12] 1,000 mcg PO DAILY tab 04/21/22 05/08/22 Rx Tamsulosin [Flomax] 0.4 mg PO BID #60 cap 04/21/22 05/08/22 Rx INSULIN LISPRO (HumaLOG) [humaLOG] See Protocol SQ AC-TID 05/08/22 05/08/22 History Loperamide [Imodium] 2 mg PO Q6H PRN 05/08/22 05/08/22 History Nitrofurantoin Monohyd/M-Cryst 100 mg PO Q12HR 05/08/22 05/08/22 History [Macrobid] Ondansetron [Zofran] 4 mg PO Q6H PRN 05/08/22 05/08/22 History Simvastatin [Zocor] 40 mg PO HS 05/08/22 05/08/22 History cloNIDine HCL [Catapres] 0.1 mg PO DAILY PRN 05/08/22 05/08/22 History Allergies Allergy/AdvReac Type Severity Reaction Status Date / Time adhesive tape Allergy Rash/Hives Verified 05/08/22 11:38 Physical Exam Vitals: Vital Signs Temp Pulse Resp BP Pulse Ox 05/10/22 02:00 98.2 F 93 20 139/82 91 L 05/09/22 20:00 84 17 05/09/22 14:00 98.9 F 84 17 125/79 94 L Intake and Output 05/09/22 05/10/22 05/10/22 22:59 06:59 14:59 Output Total 500 900 Balance -500 -900 Output: Urine 500 900 Other: Voiding Method Indwelling Catheter On exam he is awake alert disoriented but follows commands. There is no facial asymmetry noted neck is supple Lungs are clear to auscultation but poor air entry because of poor inspiratory effort Heart sounds unremarkable for any murmur rub gallop Abdomen soft nontender slightly protuberant Extremity exam was trace edema Neurologically awake alert but disoriented No focal motor deficit noted Results - Lab Results Most recent lab results Calcium 9.1 mg/dL (8.7-10.3) 05/09/22 06:18 05/09/22 06:18 05/09/22 06:18 Assessment and Plan Plan: Impression 1. Acute kidney injury secondary to prerenal from poor intake, abdominal distention and third spacing of fluid from a yes and poor intake from confusion,. Creatinine baseline is 0.8 on 05/06/2022 and went up to 1.8 and further to 2.8. She has a Barnett catheter. The cause of the worsening creatinine in spite of fluid resuscitation good urine output maybe there is an element of ATN that it will take a few days to recover 2. Recurrent UTI UTI with Enterobacter cloacae and Enterococcus faecalis on 04/20/2022. 3. Currently she has urinary tract infection also with gram-negative bacilli. 4. Mild degree of metabolic alkalosis bicarb is 33 improved to 31. Etiology is unclear. We will watch 5. Diabetes mellitus 6. History of ASHD and myocardial infarction 7. Ileus on computed tomography scan with large amount of third spacing of fluid into the intestines Recommendation 1. Maintain Barnett catheter strict I's and O's 2. Continue normal saline at 75 mL an hour 3. Expect renal function to improve. 4. Monitor labs on a daily basis Thank you for this consultation we'll continue to follow closely
--- NOTE | 2022-05-10 09:06 | P.PN ---
Progress Note - Text Progress Note Date: 05/10/22 Patient resting in her bed. Her abdomen does look distended. On exam vital signs are stable. Abdomen soft. There is some minimal tenderness throughout. There is no rebound or guarding. Ileus. Patient will remain on clear liquid diet. She'll be observed closely.
[2022-05-10 11:32] LABS: Glucose,Whole Blood 127 mg/dL (70-110)
[2022-05-10] MEDS: bisacodyL 10 MG SUPP RECTAL SCH (14:22)
[2022-05-10 16:27] LABS: Glucose,Whole Blood 123 mg/dL (70-110)
[2022-05-10] MEDS: ACETAMINOPHEN IV (For NPO) 1,000 MG in EMPTY BAG 1 BAG IVPB PRN (21:54)
[2022-05-11 00:05] LABS: Glucose,Whole Blood 126 mg/dL (70-110)
[2022-05-11] MEDS: INSULIN ASPART (NovoLOG) 100 UNIT/ML VIAL SQ SCH ×5 (00:10→23:58)
[2022-05-11 05:19] LABS: Glucose,Whole Blood 127 mg/dL (70-110)
--- NOTE | 2022-05-11 08:25 | P.PN ---
Subjective Progress Note Date: 05/11/22 Principal diagnosis: This is a 82-year-old female seen in consultation because of acute kidney injury. Creatinine was 1.8 and worsened to 2.8. Previous creatinine was 0.81 on 05/06/2022 2 days prior to this admission Acute kidney injury secondary to prerenal from poor intake, abdominal distention and third spacing of fluid from ileus and poor intake from confusion,. She has a Barnett catheter. The cause of the worsening creatinine in spite of fluid resuscitation good urine output maybe there is an element of ATN that it will take a few days to recover While signs are stable low-grade temperature of 100.1 last night. 24-hour intake and output, intake is not recorded output is 17 0 2 mL of urine. She remains somewhat confused but awake alert Her urine grew gram-negative bacilli Patient is recently admitted 04/18/2022 and discharged 04/22/2022 with altered mental status changes metabolic encephalopathy and possible basal ganglia lacunar infarct as per neurology, urine tract infection with Enterobacter cloacae. She was readmitted with again mental status changes recent falls. She is unable to give any reliable history. She is known in the past with diabetes, History of parotid gland cancer, history of myocardial infarction thyroidectomy and hysterectomy cholecystectomy and breast surgery and appendectomy Objective - Vital Signs Vital signs: Vital Signs Temp 98.3 F 05/11/22 07:18 Pulse 63 05/11/22 07:18 Resp 17 05/11/22 07:18 BP 112/64 05/11/22 07:18 Pulse Ox 95 05/11/22 07:18 FiO2 Intake & Output 05/10/22 05/11/22 05/11/22 18:59 06:59 18:59 Output Total 751 951 Balance -751 -951 Output: Urine 750 950 Stool 1 1 Other: Voiding Method Indwelling Catheter Indwelling Catheter On examination she is awake alert but confused and disoriented HEENT exam no JVP neck is supple no facial asymmetry Lungs are clear to auscultation with less than optimal air entry Heart sounds irregular heartbeats occasionally with extrasystole no murmur rub gallop Abdomen soft slightly distended bowel sounds absent. Extremity exam reveals trace edema Warm to touch Neurologically as mentioned about - Labs CBC & Chem 7: 05/09/22 06:18 05/09/22 06:18 Labs: Abnormal Lab Results - Last 24 Hours (Table) 05/10/22 05/10/22 05/11/22 Range/Units 11:31 16:26 00:03 POC Glucose (mg/dL) 127 H 123 H 126 H (70-110) mg/dL 05/11/22 Range/Units 05:18 POC Glucose (mg/dL) 127 H (70-110) mg/dL Microbiology - Last 24 Hours (Table) 05/09/22 12:07 Blood Culture - Preliminary Blood No Growth after 24 hours 05/09/22 12:12 Blood Culture - Preliminary Blood No Growth after 24 hours Assessment and Plan Plan: Impression 1. Acute kidney injury secondary to prerenal from poor intake, abdominal distention and third spacing of fluid from ileus and poor intake from confusion,. Creatinine baseline is 0.8 on 05/06/2022 and went up to 1.8 and further to 2.8. She has a Barnett catheter. The cause of the worsening creatinine in spite of fluid resuscitation good urine output maybe there is an element of ATN that it will take a few days to recover. Last today are pending 2. Recurrent UTI with gram-negative bacilli and previously had Enterobacter cloacae and Enterococcus faecalis on 04/20/2022. 3. Encephalopathy, secondary to UTI and acute kidney injury 4. Mild degree of metabolic alkalosis bicarb is 33 improved to 31. Etiology is unclear. We will watch 5. Diabetes mellitus 6. History of ASHD and myocardial infarction 7. Ileus on computed tomography scan with large amount of third spacing of fluid into the intestines. Recommendation 1. Maintain Barnett catheter strict I's and O's 2. Continue normal saline at 75 mL an hour 3. Expect renal function to improve. 4. Monitor labs on a daily basis
[2022-05-11 10:12] LABS: ALT 10 U/L (4-34); AST 19 U/L (14-36); African American GFR (CKD) 40 (>60 ml/min/1.73 sqM); Albumin 3.5 g/dL (3.5-5.0); Albumin/Globulin Ratio 1.5; Alkaline Phosphatase 85 U/L (38-126); Anion Gap 11 mmol/L; Blood Urea Nitrogen 40 mg/dL (7-17); Carbon Dioxide 32 mmol/L (22-30); Chloride 105 mmol/L (98-107); Globulin 2.4 g/dL; Glucose 130 mg/dL (74-99); Non-African American GFR(CKD) 35 (>60 ml/min/1.73 sqM); Sodium 148 mmol/L (137-145); Total Bilirubin 0.5 mg/dL (0.2-1.3); Total Protein 5.9 g/dL (6.3-8.2)
[2022-05-11] MEDS: bisacodyL 10 MG SUPP RECTAL SCH (10:28)
--- NOTE | 2022-05-11 10:34 | P.PN ---
Progress Note - Text Progress Note Date: 05/11/22 Patient's had some flatus and some small liquid brown bowel movements. She still has complaints of some mild abdominal pain. On exam vital signs are stable. Abdomen soft distended. Slowly resolving ileus. Patient will continue clear liquid diet.
[2022-05-11] MEDS: MORPHINE SULFATE 2 MG/ML SYRINGE IVP PRN (11:03)
[2022-05-11] MEDS: SODIUM CHLORIDE 0.9% 1,000 ML IV SCH ×2 (11:07→22:02)
[2022-05-11 11:37] LABS: Glucose,Whole Blood 129 mg/dL (70-110)
[2022-05-11] MEDS: DEXTROSE 5% IN WATER 1,000 ML IV SCH (14:34)
[2022-05-11 16:46] LABS: Glucose,Whole Blood 114 mg/dL (70-110)
[2022-05-11] MEDS: ACETAMINOPHEN IV (For NPO) 1,000 MG in EMPTY BAG 1 BAG IVPB PRN (23:16)
[2022-05-11 23:56] LABS: Glucose,Whole Blood 179 mg/dL (70-110)
--- NOTE | 2022-05-12 02:58 | P.PN ---
Subjective Progress Note Date: 05/10/22 This is an 82-year-old female recently discharged with acute UTI, mental status changes in a patient with PMH of recent falls , acute UTI cystitis ,diabetes insipidus, hypothyroidism, diabetes, hyperlipidemia and depression, transferred from the [facility] rehab to the hospital with complaints of abdominal pain, significant distention, nausea, vomiting , increased confusion and multiple other medical issues. Patient unable to provide information, lethargic, continues to fall back asleep. Daughter Laurel via telephone reported that patient was found Thursday on the floor, Thursday confusion worsened and by Thursday patient was complaining of abdominal pain. Reports in March her mom is independent, driving, performing all ADLs, sustained a few falls, continued to decline since. She has not been walking, no longer feeding herself, not taking her medications. Family feels that her quality of life is missing and requesting hospice consult. CT reported diffuse gastric prominence, air-fluid levels throughout small and large bowel loops with greater distention of colonic loops noted. Findings extending to the distal rectum/anus, suggesting a severe dynamic ileus over high-grade antral stricture or stenosis .Ammonia 13, afebrile, and WBC 11.57, hemoglobin 10.7, platelets 360m sodium 146, potassium 4.3, bicarb 31.2, BUN 43.2, creatinine 2.8 05/10/2022 Patient is resting in bed. Awake alert and able to communicate. Oriented x2-3. No complaints of chest pain. Abdominal pain is better. Abdominal still distended n otherwise. No complaints of cough or sputum reduction. No fever no chills. No chest pain or shortness of breath. Patient has been counseled on clear liquid diet. Laboratory data reviewed. Patient was seen by nephrology and recommended to continue Barnett catheter and IV hydration. Current medications reviewed. Objective - Vital Signs Vital signs: Vital Signs Temp 100.1 F H 05/10/22 19:25 Pulse 85 05/10/22 19:25 Resp 17 05/10/22 19:25 BP 114/62 05/10/22 19:25 Pulse Ox 95 05/10/22 19:25 FiO2 Intake & Output 05/10/22 05/10/22 05/11/22 06:59 18:59 06:59 Output Total 900 751 Balance -900 -751 Output: Urine 900 750 Stool 1 Other: Voiding Method Indwelling Catheter Indwelling Catheter - Exam General: well nourished, well developed, lethargic, Eyes: PERRL, EOMI, conjunctiva normal HENT: normocephalic, lips dry Neck: supple, no JVD Lungs: normal respiratory effort, no wheezes or rales CV: Regular rate and rhythm, no murmur. Peripheral pulses 2+ Abdomen: soft, distended, no guarding, hypoactive bowel sounds Lymph: no cervical or axillary LAD Skin: warm and dry. Neuro: Limited assessment, alert and oriented 1. Intermittently follows simple commands. - Labs CBC & Chem 7: 05/09/22 06:18 05/11/22 09:28 Labs: Abnormal Lab Results - Last 24 Hours (Table) 05/09/22 05/10/22 05/10/22 Range/Units 21:56 00:01 05:47 POC Glucose (mg/dL) 143 H 136 H 138 H (70-110) mg/dL 05/10/22 05/10/22 Range/Units 11:31 16:26 POC Glucose (mg/dL) 127 H 123 H (70-110) mg/dL Microbiology - Last 24 Hours (Table) 05/09/22 12:07 Blood Culture - Preliminary Blood No Growth after 24 hours 05/09/22 12:12 Blood Culture - Preliminary Blood No Growth after 24 hours Assessment and Plan Assessment: Abdominal pain, CT suggesting 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 surgery following Acute recurrent UTI with gram negative bacilli Acute renal failure, baseline creatinine 0.9. Acute urinary retention, Barnett catheter Acute metabolic encephalopathy secondary to the above Recent frequent admissions secondary to frequent falls, profound hypothyroidism, bradycardia Dementia. Suspected small vessel disease, possible chronic bilateral basal ganglia elected or infarct as per neurology's previous workup. Anxiety, depression Hypothyroidism, recently discovered with profound hypothyroidism, dose had been increased Diabetes insipidus, on desmopressin Diabetes mellitus type 2, A1c 7.3 Anxiety, depression No code, no CPR, no intubation Plan: Continue on current medication regime ,monitoring and symptomatic treatment. General surgery consult in place. IV fluid hydration. Hospice consulted as per family's request related to patient's continued decline since March and did not want aggressive measures. Family open to possibly conservative management as per general surgery, pending their options offered- but declining any surgery. Prognosis guarded given multiple complex medical issues. Nephrology consulted, as at this time patient is not hospice.Maintain supportive care. Time with Patient: Greater than 30
[2022-05-12] MEDS ORDERED: CEFEPIME 2 GM in SODIUM CHLORIDE 0.9% 100 ML IVPB SCH (03:00)
--- NOTE | 2022-05-12 03:03 | P.PN ---
Subjective Progress Note Date: 05/11/22 This is an 82-year-old female recently discharged with acute UTI, mental status changes in a patient with PMH of recent falls , acute UTI cystitis ,diabetes insipidus, hypothyroidism, diabetes, hyperlipidemia and depression, transferred from the [facility] rehab to the hospital with complaints of abdominal pain, significant distention, nausea, vomiting , increased confusion and multiple other medical issues. Patient unable to provide information, lethargic, continues to fall back asleep. Daughter Laurel via telephone reported that patient was found Thursday on the floor, Thursday confusion worsened and by Thursday patient was complaining of abdominal pain. Reports in March her mom is independent, driving, performing all ADLs, sustained a few falls, continued to decline since. She has not been walking, no longer feeding herself, not taking her medications. Family feels that her quality of life is missing and requesting hospice consult. CT reported diffuse gastric prominence, air-fluid levels throughout small and large bowel loops with greater distention of colonic loops noted. Findings extending to the distal rectum/anus, suggesting a severe dynamic ileus over high-grade antral stricture or stenosis .Ammonia 13, afebrile, and WBC 11.57, hemoglobin 10.7, platelets 360m sodium 146, potassium 4.3, bicarb 31.2, BUN 43.2, creatinine 2.8 05/10/2022 Patient is resting in bed. Awake alert and able to communicate. Oriented x2-3. No complaints of chest pain. Abdominal pain is better. Abdominal still distended n otherwise. No complaints of cough or sputum reduction. No fever no chills. No chest pain or shortness of breath. Patient has been counseled on clear liquid diet. Laboratory data reviewed. Patient was seen by nephrology and recommended to continue Barnett catheter and IV hydration. 05/11/2022 Patient is currently lying in bed. No complaints of chest pain. Denies any abdominal pain. Otherwise patient is a poor historian. No nausea or vomiting. No fever no chills. Urine culture showed gram-negative bacilli currently on antibiotics in the form of ceftriaxone. Patient is being continued IV hydration changed to D5 water due to hypernatremia. Laboratory data showed sodium 148 potassium 4.0 chloride 105 bicarb is 32 BUN 14 creatinine improved to 1.8. Blood sugar is at 130.. Current medications reviewed. Objective - Vital Signs Vital signs: Vital Signs Temp 98.7 F 05/11/22 18:07 Pulse 90 05/11/22 18:07 Resp 17 05/11/22 18:07 BP 110/62 05/11/22 18:07 Pulse Ox 97 05/11/22 18:07 FiO2 Intake & Output 05/11/22 05/11/22 05/12/22 06:59 18:59 06:59 Output Total 951 2550 Balance -951 -2550 Output: Urine 950 2550 Stool 1 Other: Voiding Method Indwelling Catheter Indwelling Catheter - Exam General: well nourished, well developed, lethargic, Eyes: PERRL, EOMI, conjunctiva normal HENT: normocephalic, lips dry Neck: supple, no JVD Lungs: normal respiratory effort, no wheezes or rales CV: Regular rate and rhythm, no murmur. Peripheral pulses 2+ Abdomen: soft, distended, no guarding, hypoactive bowel sounds Lymph: no cervical or axillary LAD Skin: warm and dry. Neuro: Limited assessment, alert and oriented 1. Intermittently follows simple commands. - Labs CBC & Chem 7: 05/09/22 06:18 05/11/22 09:28 Labs: Abnormal Lab Results - Last 24 Hours (Table) 05/11/22 05/11/22 05/11/22 Range/Units 00:03 05:18 09:28 Sodium 148 H (137-145) mmol/L Carbon Dioxide 32 H (22-30) mmol/L BUN 40 H (7-17) mg/dL Creatinine 1.40 H (0.52-1.04) mg/dL Glucose 130 H (74-99) mg/dL POC Glucose (mg/dL) 126 H 127 H (70-110) mg/dL Total Protein 5.9 L (6.3-8.2) g/dL 05/11/22 05/11/22 Range/Units 11:36 16:45 Sodium (137-145) mmol/L Carbon Dioxide (22-30) mmol/L BUN (7-17) mg/dL Creatinine (0.52-1.04) mg/dL Glucose (74-99) mg/dL POC Glucose (mg/dL) 129 H 114 H (70-110) mg/dL Total Protein (6.3-8.2) g/dL Microbiology - Last 24 Hours (Table) 05/09/22 12:07 Blood Culture - Preliminary Blood No Growth after 48 hours 05/09/22 12:12 Blood Culture - Preliminary Blood No Growth after 48 hours Assessment and Plan Assessment: Abdominal pain, CT suggesting 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 surgery following Acute recurrent UTI with gram negative bacilli Acute renal failure, baseline creatinine 0.9. Acute urinary retention, Barnett catheter Acute metabolic encephalopathy secondary to the above Recent frequent admissions secondary to frequent falls, profound hypothyroidism, bradycardia Dementia. Suspected small vessel disease, possible chronic bilateral basal ganglia elected or infarct as per neurology's previous workup. Anxiety, depression Hypothyroidism, recently discovered with profound hypothyroidism, dose had been increased Diabetes insipidus, on desmopressin Diabetes mellitus type 2, A1c 7.3 Anxiety, depression No code, no CPR, no intubation Plan: Continue on current medication regime ,monitoring and symptomatic treatment. General surgery consult in place. IV fluid hydration. Hospice consulted as per family's request related to patient's continued decline since March and did not want aggressive measures. Family open to possibly conservative management as per general surgery, pending their options offered- but declining any surgery. Prognosis guarded given multiple complex medical issues. Nephrology consulted, as at this time patient is not hospice.Maintain supportive care. Time with Patient: Greater than 30
[2022-05-12] MEDS: DEXTROSE 5% IN WATER 1,000 ML IV SCH ×3 (03:41→18:14)
[2022-05-12 05:41] LABS: Glucose,Whole Blood 140 mg/dL (70-110)
[2022-05-12] MEDS: INSULIN ASPART (NovoLOG) 100 UNIT/ML VIAL SQ SCH ×3 (06:02→18:18)
[2022-05-12] MEDS: LEVOTHYROXINE 75 MCG TAB PO SCH (06:17)
[2022-05-12 07:30] LABS: Glucose,Whole Blood 154 mg/dL (70-110)
[2022-05-12] MEDS: CYANOCOBALAMIN 500 MCG TAB PO SCH (09:42)
[2022-05-12] MEDS: bisacodyL 10 MG SUPP RECTAL SCH (09:42)
[2022-05-12 10:31] LABS: Basophils # (A) 0.09 X 10*3/uL (0.00-0.10); Basophils % (A) 0.7 %; Eosinophils # (A) 0.16 X 10*3/uL (0.04-0.35); Eosinophils % (A) 1.3 %; HCT 36.7 % (37.2-46.3); HGB 11.3 g/dL (12.0-15.0); Immature Grans, Automated 0.8 %; Lymphocytes # (A) 1.74 X 10*3/uL (0.90-5.00); Lymphocytes % (A) 13.6 %; MCH 29.8 pg (27.0-32.0); MCHC 30.8 g/dL (32.0-37.0); MCV 96.8 fL (80.0-97.0); Mean Platelet Volume 11.4 fL (9.5-12.2); Monocytes # (A) 1.24 X 10*3/uL (0.20-1.00); Monocytes % (A) 9.7 %; NRBC Per 100 WBC 0 /100 WBCS (0.0-0.0); Neutrophils # (A) 9.46 X 10*3/uL (1.80-7.70); Neutrophils % (A) 73.9 %; Platelet Count 359 X 10*3/uL (140-440); RBC 3.79 X 10*6/uL (4.10-5.20); RDW 14.4 % (11.5-14.5); WBC 12.79 X 10*3/uL (4.50-10.00)
[2022-05-12 11:22] LABS: BUN/Creat Ratio 29.3 Ratio (12.00-20.00)
--- NOTE | 2022-05-12 11:22 | P.PN ---
Subjective Patient is seen in follow-up for acute kidney injury. Renal function has been improving. She is currently on D5W for hypernatremia. She's on a clear liquid diet. Has a Barnett catheter. Nonoliguric. Blood pressure stable. Denies chest pain or shortness of breath. Vital signs are stable. General: Awake. No acute distress. HEENT: Head exam is unremarkable. LUNGS: Breath sounds decreased. HEART: Rate and Rhythm are regular. ABDOMEN: Soft, no distention. Nontender. EXTREMITITES: No edema. Objective - Vital Signs Vital signs: Vital Signs Temp 98.9 F 05/12/22 07:36 Pulse 85 05/12/22 07:36 Resp 17 05/12/22 07:36 BP 120/70 05/12/22 07:36 Pulse Ox 98 05/12/22 07:36 FiO2 Intake & Output 05/11/22 05/12/22 05/12/22 18:59 06:59 18:59 Output Total 2550 1201 Balance -2550 -1201 Output: Urine 2550 1200 Stool 1 Other: Voiding Method Indwelling Catheter Indwelling Catheter - Labs CBC & Chem 7: 05/12/22 06:40 05/11/22 09:28 Labs: Abnormal Lab Results - Last 24 Hours (Table) 05/11/22 05/11/22 05/11/22 Range/Units 11:36 16:45 23:54 WBC (4.50-10.00) X 10*3/uL RBC (4.10-5.20) X 10*6/uL Hgb (12.0-15.0) g/dL Hct (37.2-46.3) % MCHC (32.0-37.0) g/dL Immature Gran # (0.00-0.04) X 10*3/uL Neutrophils # (1.80-7.70) X 10*3/uL Monocytes # (0.20-1.00) X 10*3/uL POC Glucose (mg/dL) 129 H 114 H 179 H (70-110) mg/dL 05/12/22 05/12/22 05/12/22 Range/Units 05:39 06:40 07:28 WBC 12.79 H (4.50-10.00) X 10*3/uL RBC 3.79 L (4.10-5.20) X 10*6/uL Hgb 11.3 L (12.0-15.0) g/dL Hct 36.7 L (37.2-46.3) % MCHC 30.8 L (32.0-37.0) g/dL Immature Gran # 0.10 H (0.00-0.04) X 10*3/uL Neutrophils # 9.46 H (1.80-7.70) X 10*3/uL Monocytes # 1.24 H (0.20-1.00) X 10*3/uL POC Glucose (mg/dL) 140 H 154 H (70-110) mg/dL Microbiology - Last 24 Hours (Table) 05/08/22 11:29 Urine Culture - Final Urine,Voided Enterobacter cloacae 05/09/22 12:07 Blood Culture - Preliminary Blood No Growth after 48 hours 05/09/22 12:12 Blood Culture - Preliminary Blood No Growth after 48 hours Assessment and Plan Plan: Assessment: 1. Acute kidney injury mostly prerenal from poor intake. Creatinine peaked at 2.8 this admission and was 1.4 yesterday. Baseline creatinine near 1. No hydronephrosis noted on CAT scan. 2. Ileus. On clear liquid diet. 3. Hypernatremia from lack full water intake. On D5W. 4. Enterobacter UTI on antibiotics. 5. Diabetes mellitus. Plan: Maintain D5W. Diet to be advanced per surgery. Continue to monitor renal function and urine output. Follow-up morning labs. Check magnesium level as well Hospice being considered.
[2022-05-12 11:23] LABS: African American GFR (CKD) 51.3 (60.0-200.0); Anion Gap 13.4 mmol/L (10.00-18.00); Blood Urea Nitrogen 33.7 mg/dL (9.0-27.0); Calcium 8.9 mg/dL (8.7-10.3); Carbon Dioxide 28.9 mmol/L (20.0-27.5); Non-African American GFR(CKD) 44.3 (60.0-200.0); Potassium 3.8 mmol/L (3.5-5.5)
[2022-05-12] MEDS: SODIUM CHLORIDE 0.9% 1,000 ML IV SCH (11:27)
[2022-05-12] MEDS: CIPROFLOXACIN HCL 500 MG TAB PO SCH ×2 (11:30→20:19)
[2022-05-12 11:32] LABS: Glucose,Whole Blood 140 mg/dL (70-110)
--- NOTE | 2022-05-12 11:35 | P.PN ---
Subjective Progress Note Date: 05/12/22 CHIEF COMPLAINT: Ileus HISTORY OF PRESENT ILLNESS: Patient is more awake today as compared to Thursday. Per nursing staff patient has had flatus noted with a suppository given. There was a very small amount of liquidy stool yesterday. Patient still complains of abdominal pain mostly on the right side. She remains distended. She also reported nausea. Oral intake is decreased. Low-grade temp of 99.7. WBC is up at 12.79 Hgb 11.3 platelets 359 sodium 152 potassium 3.8 creatinine 1.2 PHYSICAL EXAM: VITAL SIGNS: Reviewed. GENERAL: Well-developed in no acute distress. ABDOMEN: Soft. Distended. Right sided upper abdominal tenderness near old incision site. NEUROLOGIC: Alert and oriented times one name only ASSESSMENT: 1. Ileus 2. UTI 3. Acute kidney injury PLAN: -Continue to monitor -Continue clear liquid diet -Continue Dulcolax suppositories daily -Further recommendations forthcoming per surgeon Physician Campground Cleaning Attendant note has been reviewed by physician. Signing provider agrees with the documented findings, assessment, and plan of care. I have personally seen and examined the patient, reviewed the UTILITY HAND /PAs history, exam and MDM and agree with the assessment and plan as written. Based on total visit time, I have performed more than 50% of the visit. As above: Patient is confused today. No significant stools. Dulcolax suppositories daily with some flatus. Remains distended on exam. Mild tenderness at this time. We will place rectal tube. Family apparently still co nsidering hospice care. Objective - Vital Signs Vital signs: Vital Signs Temp 98.9 F 05/12/22 07:36 Pulse 85 05/12/22 07:36 Resp 17 05/12/22 07:36 BP 120/70 05/12/22 07:36 Pulse Ox 98 05/12/22 07:36 FiO2 Intake & Output 05/11/22 05/12/22 05/12/22 18:59 06:59 18:59 Output Total 2550 1201 Balance -2550 -1201 Output: Urine 2550 1200 Stool 1 Other: Voiding Method Indwelling Catheter Indwelling Catheter - Labs CBC & Chem 7: 05/12/22 06:40 05/12/22 11:14 Labs: Abnormal Lab Results - Last 24 Hours (Table) 05/11/22 05/11/2205/11/22 Range/Units 11:36 16:45 23:54 WBC (4.50-10.00) X 10*3/uL RBC (4.10-5.20) X 10*6/uL Hgb (12.0-15.0) g/dL Hct (37.2-46.3) % MCHC (32.0-37.0) g/dL Immature Gran # (0.00-0.04) X 10*3/uL Neutrophils # (1.80-7.70) X 10*3/uL Monocytes # (0.20-1.00) X 10*3/uL Sodium (135-145) mmol/L Carbon Dioxide (20.0-27.5) mmol/L BUN (9.0-27.0) mg/dL Est GFR (CKD-EPI)AfAm (60.0-200.0) Est GFR (CKD-EPI)NonAf (60.0-200.0) BUN/Creatinine Ratio (12.00-20.00) Ratio Glucose (70-110) mg/dL POC Glucose (mg/dL) 129 H 114 H 179 H (70-110) mg/dL 05/12/22 05/12/22 05/12/22 Range/Units 05:39 06:40 06:40 WBC 12.79 H (4.50-10.00) X 10*3/uL RBC 3.79 L (4.10-5.20) X 10*6/uL Hgb 11.3 L (12.0-15.0) g/dL Hct 36.7 L (37.2-46.3) % MCHC 30.8 L (32.0-37.0) g/dL Immature Gran # 0.10 H (0.00-0.04) X 10*3/uL Neutrophils # 9.46 H (1.80-7.70) X 10*3/uL Monocytes # 1.24 H (0.20-1.00) X 10*3/uL Sodium 152 H (135-145) mmol/L Carbon Dioxide 28.9 H (20.0-27.5) mmol/L BUN 33.7 H (9.0-27.0) mg/dL Est GFR (CKD-EPI)AfAm 51.3 L (60.0-200.0) Est GFR (CKD-EPI)NonAf 44.3 L (60.0-200.0) BUN/Creatinine Ratio 29.30 H (12.00-20.00) Ratio Glucose 138 H (70-110) mg/dL POC Glucose (mg/dL) 140 H (70-110) mg/dL 05/12/22 Range/Units 07:28 WBC (4.50-10.00) X 10*3/uL RBC (4.10-5.20) X 10*6/uL Hgb (12.0-15.0) g/dL Hct (37.2-46.3) % MCHC (32.0-37.0) g/dL Immature Gran # (0.00-0.04) X 10*3/uL Neutrophils # (1.80-7.70) X 10*3/uL Monocytes # (0.20-1.00) X 10*3/uL Sodium (135-145) mmol/L Carbon Dioxide (20.0-27.5) mmol/L BUN (9.0-27.0) mg/dL Est GFR (CKD-EPI)AfAm (60.0-200.0) Est GFR (CKD-EPI)NonAf (60.0-200.0) BUN/Creatinine Ratio (12.00-20.00) Ratio Glucose (70-110) mg/dL POC Glucose (mg/dL) 154 H (70-110) mg/dL Microbiology - Last 24 Hours (Table) 05/08/22 11:29 Urine Culture - Final Urine,Voided Enterobacter cloacae 05/09/22 12:07 Blood Culture - Preliminary Blood No Growth after 48 hours 05/09/22 12:12 Blood Culture - Preliminary Blood No Growth after 48 hours
[2022-05-12 11:54] LABS: African American GFR (CKD) 44 (>60 ml/min/1.73 sqM); Anion Gap 11 mmol/L; Blood Urea Nitrogen 36 mg/dL (7-17); Carbon Dioxide 30 mmol/L (22-30); Chloride 108 mmol/L (98-107); Glucose 145 mg/dL (74-99); Magnesium 1.7 mg/dL (1.6-2.3); Non-African American GFR(CKD) 38 (>60 ml/min/1.73 sqM); Potassium 3.8 mmol/L (3.5-5.1); Sodium 149 mmol/L (137-145)
--- NOTE | 2022-05-12 12:53 | P.PN ---
Subjective Progress Note Date: 05/12/22 Principal diagnosis: AMS, MANUEL, Ileus The patient is an 82 year-old female with PMH of diabetes, hypothyroidism, diabetes, hyperlipidemia, OK, and depression. She presented to the emergency department on 05/08/22 with complaints of abdominal pain and distention. Patient brought by EMS from [facility] in [place]. Patient was here 2 days ago for altered mental status and diagnosed with a UTI. Over the last day, the patient has been complaining of abdominal pain and the staff at [facility] has noted abdominal distention. She has also been vomiting. She denied any fevers, chills, sore throat, cough, dyspnea, chest pain, palpitations, diarrhea, back pain, or headaches.H er [id number] was with her in the emergency department and stated that approximately one month ago, she was cognitively intact, driving, walking around, and caring for herself independently. Her mental status has a drastic decline since then. Her daughter would like to discuss hospice placeme nt due to this severe decline and in order to keep the patient comfortable. However, they would like to proceed with general medical treatment for the meantime in the event she is able to improve. 05/09 The patient is resting in bed. She is lethargic and answers questions intermittently. She does follow commands. Met with the patient's son, Ashvin, and daughter in-law, Esme. Palliative care and hospice philosophies and services explained in detail. They are concerned at the patient's quick decline. She was completely independent and lived alone until she fell at home in the beginning of March. Both her mental and physical status has declined significantly. She had even stopped taking her medication. She was sent to a [facility] following her fall, and has had several hospital re-admissions since. The family believes that she would not want to keep coming back and forth to the hospital and would want comfort care. They are interested in the [facility] [place]. Referral sent and spoke directly to patient liaisonNathalia. Objective - Vital Signs Vital signs: Vital Signs Temp 98.9 F 05/12/22 07:36 Pulse 85 05/12/22 07:36 Resp 17 05/12/22 07:36 BP 120/70 05/12/22 07:36 Pulse Ox 98 05/12/22 07:36 FiO2 Intake & Output 05/11/22 05/12/22 05/12/22 18:59 06:59 18:59 Output Total 2550 1201 Balance -2550 -1201 Output: Urine 2550 1200 Stool 1 Other: Voiding Method Indwelling Catheter Indwelling Catheter - Exam General: Well developed, well nourished. No acute distress. Chronically ill appearing. HEENT: Head is atraumatic, normocephalic. Sclerae are clear. Pupils equal, round and reactive to light bilaterally. Mucus membranes moist. CV: Heart regular in rate and rhythm positive S1 and S2. No clicks, rubs or murmurs. Peripheral pulses equal. 2/4 Lungs: Clear to auscultation bilaterally. No wheezes rales or rhonchi. Respirations even and nonlabored. On 2L O2 via NC Abdomen/GI: Distended, soft. Hypoactive bowel sounds present.. + abdominal tenderness. : Nicole catheter present with clear yellow urine Musculoskeletal/ Extremities: WILSON, no joint deformity or swelling. No gross atrophy. + generalized weakness Vascular: Radial pulses equal. 2/4. + 1 B/L LE edema Skin: Warm and dry, No rash or lesions. Neurologic: Lethargic, difficulty staying awake. Orientd to person only. Opens her eyes with verbal and tactile stimulation. Speech difficult to understand. Obeys some commands. Psychiatric: Unable to assess, refuses to answer questions/unable to stay awake - Labs CBC & Chem 7: 05/12/22 06:40 05/12/22 11:14 Labs: Abnormal Lab Results - Last 24 Hours (Table) 05/11/22 05/11/22 05/11/22 Range/Units 09:28 11:36 16:45 Sodium 148 H (137-145) mmol/L Carbon Dioxide 32 H (22-30) mmol/L BUN 40 H (7-17) mg/dL Creatinine 1.40 H (0.52-1.04) mg/dL Glucose 130 H (74-99) mg/dL POC Glucose (mg/dL) 129 H 114 H (70-110) mg/dL Total Protein 5.9 L (6.3-8.2) g/dL 05/11/22 05/12/22 05/12/22 Range/Units 23:54 05:39 07:28 Sodium (137-145) mmol/L Carbon Dioxide (22-30) mmol/L BUN (7-17) mg/dL Creatinine (0.52-1.04) mg/dL Glucose (74-99) mg/dL POC Glucose (mg/dL) 179 H 140 H 154 H (70-110) mg/dL Total Protein (6.3-8.2) g/dL Microbiology - Last 24 Hours (Table) 05/08/22 11:29 Urine Culture - Final Urine,Voided Enterobacter cloacae 05/09/22 12:07 Blood Culture - Preliminary Blood No Growth after 48 hours 05/09/22 12:12 Blood Culture - Preliminary Blood No Growth after 48 hours Assessment and Plan Assessment: Symptoms * Pain - + abdominal pain, continue Ofirmev and Morphine * Fatigue - + generalized weakness and fatigue * SOB - No * Insomnia - No * N/V - Yes, continue Zofran prn * Anxiety - No * Depression - No * Confusion - Yes * Agitation - No * Hallucinations - No * Appetite/weight loss - Decreased appetite, no recent weight loss, continue clear liquid diet * Dysphagia - No * Constipation - Yes, RN reports 1 small liquid BM over the weekend. Continue Dulcolax daily - per surgery * Incontinence - Yes, nicole catheter in place * Itch - No Plan: Plan: Summary/Goals - Patient resting in bed. She is lethargic and struggles to stay awake and answer questions. She is oriented x 1 to person only. No visitors at bedside. She c/o abdominal pain and nausea. RN notified. Patient's son and daughter in-law met with Lisbeth from [facility] Thursday for an informational visit. They were given financial assessment paperwork to complete. Lisbeth also requested medical records from [facility]. Spoke with daughter in-law, Esme, via telephone. She states she has been filling out the financial assessment forms and Medicaid application. She stated she has had conversations in the past with the patient and she would never want to be placed on life support, or have a colostomy bag. She does not think the patient would benefit from surgery. It was explained that the patient's ileus is being treated conservatively and has shown a little improvement. She believes she would just want to be comfortable at this point. Recommendations - [facility] Advanced Directives - None on file Code Status - DNR Thank you for this consult [facility] [id number] Email: [email or web address] Time with Patient: Less than 30
[2022-05-12 13:48] VITALS: BMI 29.0
--- NOTE | 2022-05-12 16:07 | P.PN ---
Subjective Progress Note Date: 05/12/22 This is an 82-year-old female recently discharged with acute UTI, mental status changes in a patient with PMH of recent falls , acute UTI cystitis ,diabetes insipidus, hypothyroidism, diabetes, hyperlipidemia and depression, transferred from the [facility] rehab to the hospital with complaints of abdominal pain, significant distention, nausea, vomiting , increased confusion and multiple other medical issues. Patient unable to provide information, lethargic, continues to fall back asleep. Daughter Laurel via telephone reported that patient was found Thursday on the floor, Thursday confusion worsened and by Thursday patient was complaining of abdominal pain. Reports in March her mom is independent, driving, performing all ADLs, sustained a few falls, continued to decline since. She has not been walking, no longer feeding herself, not taking her medications. Family feels that her quality of life is missing and requesting hospice consult. CT reported diffuse gastric prominence, air-fluid levels throughout small and large bowel loops with greater distention of colonic loops noted. 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 Blood sugars controlled.Chloride 108, bicarb 30, BUN 36, creatinine 1.3. Conservative management as per general surgery. Received suppository yesterday with small liquid stool/flatus. Reports positive abdominal pain. Maintained on IV fluid hydration, antibiotics. Urine culture reporting Enterobacter Cloacae, antibiotics adjusted, and ID consulted. T-max 99.7, WBC increased to 12.79. Tolerating clear liquid diet with no nausea or vomiting. Objective - Vital Signs Vital signs: Vital Signs Temp 98.7 F 05/12/22 14:00 Pulse 74 05/12/22 14:00 Resp 16 05/12/22 14:00 BP 135/64 05/12/22 14:00 Pulse Ox 96 05/12/22 14:00 FiO2 Intake & Output 05/11/22 05/12/22 05/12/22 18:59 06:59 18:59 Output Total 2550 1201 Balance -2550 -1201 Weight 81.647 kg Output: Urine 2550 1200 Stool 1 Other: Voiding Method Indwelling Catheter Indwelling Catheter - Exam General: well nourished, well developed, confused Eyes: PERRL, EOMI, conjunctiva normal HENT: normocephalic Neck: supple, no JVD Lungs: normal respiratory effort, no wheezes or rales CV: Regular rate and rhythm, no murmur. Peripheral pulses 2+ Abdomen: soft, distended, no guarding, hypoactive bowel sounds Skin: warm and dry. Neuro: Limited assessment, alert and oriented 1. Intermittently follows simple commands. - Labs CBC & Chem 7: 05/12/22 06:40 05/12/22 11:14 Labs: Abnormal Lab Results - Last 24 Hours (Table) 05/11/22 05/11/22 05/12/22 Range/Units 16:45 23:54 05:39 WBC (4.50-10.00) X 10*3/uL RBC (4.10-5.20) X 10*6/uL Hgb (12.0-15.0) g/dL Hct (37.2-46.3) % MCHC (32.0-37.0) g/dL Immature Gran # (0.00-0.04) X 10*3/uL Neutrophils # (1.80-7.70) X 10*3/uL Monocytes # (0.20-1.00) X 10*3/uL Sodium (135-145) mmol/L Chloride (98-107) mmol/L Carbon Dioxide (20.0-27.5) mmol/L BUN (9.0-27.0) mg/dL Creatinine (0.52-1.04) mg/dL Est GFR (CKD-EPI)AfAm (60.0-200.0) Est GFR (CKD-EPI)NonAf (60.0-200.0) BUN/Creatinine Ratio (12.00-20.00) Ratio Glucose (70-110) mg/dL POC Glucose (mg/dL) 114 H 179 H 140 H (70-110) mg/dL 05/12/22 05/12/22 05/12/22 Range/Units 06:40 06:40 07:28 WBC 12.79 H (4.50-10.00) X 10*3/uL RBC 3.79 L (4.10-5.20) X 10*6/uL Hgb 11.3 L (12.0-15.0) g/dL Hct 36.7 L (37.2-46.3) % MCHC 30.8 L (32.0-37.0) g/dL Immature Gran # 0.10 H (0.00-0.04) X 10*3/uL Neutrophils # 9.46 H (1.80-7.70) X 10*3/uL Monocytes # 1.24 H (0.20-1.00) X 10*3/uL Sodium 152 H (135-145) mmol/L Chloride (98-107) mmol/L Carbon Dioxide 28.9 H (20.0-27.5) mmol/L BUN 33.7 H (9.0-27.0) mg/dL Creatinine (0.52-1.04) mg/dL Est GFR (CKD-EPI)AfAm 51.3 L (60.0-200.0) Est GFR (CKD-EPI)NonAf 44.3 L (60.0-200.0) BUN/Creatinine Ratio 29.30 H (12.00-20.00) Ratio Glucose 138 H (70-110) mg/dL POC Glucose (mg/dL) 154 H (70-110) mg/dL 05/12/22 05/12/22 Range/Units 11:14 11:30 WBC (4.50-10.00) X 10*3/uL RBC (4.10-5.20) X 10*6/uL Hgb (12.0-15.0) g/dL Hct (37.2-46.3) % MCHC (32.0-37.0) g/dL Immature Gran # (0.00-0.04) X 10*3/uL Neutrophils # (1.80-7.70) X 10*3/uL Monocytes # (0.20-1.00) X 10*3/uL Sodium 149 H (135-145) mmol/L Chloride 108 H (98-107) mmol/L Carbon Dioxide (20.0-27.5) mmol/L BUN 36 H (9.0-27.0) mg/dL Creatinine 1.31 H (0.52-1.04) mg/dL Est GFR (CKD-EPI)AfAm (60.0-200.0) Est GFR (CKD-EPI)NonAf (60.0-200.0) BUN/Creatinine Ratio (12.00-20.00) Ratio Glucose 145 H (70-110) mg/dL POC Glucose (mg/dL) 140 H (70-110) mg/dL Microbiology - Last 24 Hours (Table) 05/09/22 12:12 Blood Culture - Preliminary Blood No Growth after 72 hours 05/09/22 12:07 Blood Culture - Preliminary Blood No Growth after 72 hours 05/08/22 11:29 Urine Culture - Final Urine,Voided Enterobacter cloacae Assessment and Plan Assessment: Abdominal pain, CT suggesting 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 surgery following-conservative management Acute recurrent UTI,Enterobacter clocae Acute renal failure, baseline creatinine 0.9. Acute urinary retention, Barnett catheter Acute metabolic encephalopathy secondary to the above Hypernatremia Recent frequent admissions secondary to frequent falls, profound hypothyroidism, bradycardia Dementia. Suspected small vessel disease, possible chronic bilateral basal ganglia elected or infarct as per neurology's previous workup. Anxiety, depression Hypothyroidism, recently discovered with profound hypothyroidism, dose had been increased Diabetes insipidus, on desmopressin Diabetes mellitus type 2, A1c 7.3 Anxiety, depression No code, no CPR, no intubation Plan: Continue on current medication regime ,monitoring and symptomatic treatment. IV fluids of D5W secondary to hypernatremia .conservative management of ileus with slow improvement.Thursday,family [facility] with [facility] for informational meeting. Case management reporting family ready to pursue hospice house as early as tomorrow. Maintain supportive care. The impression and plan of care has been dictated as directed. : I performed a history and examination of this patient, discussed the same with the dictator. I agree with the dictator's note ,documented as a scribe. Any additional findings or plans will be noted.
[2022-05-12 18:17] LABS: Glucose,Whole Blood 150 mg/dL (70-110)
--- NOTE | 2022-05-12 22:23 | P.CONS ---
History of Present Illness - Reason for Consult Consult date: 05/12/22 - History of Present Illness Patient is a 82-year-old female presenting to the hospital about 4 days ago for evaluation of abdominal pain and distention in this patient who is a resident of [facility] patient also noticed to have some mental status changes patient was complaining of more abdominal distention and has been vomiting with the symptom the patient was evaluated on arrival to the ER the berna rodriguez did have a CT abdominal pelvis diffuse gastric prominence air-fluid levels throughout small and large bowel loops concerning for possible ileus patient has been evaluated by general surgery and medical team patient on presentation to the hospital was afebrile he did spike a fever 100.1 on 05/10/2022 and a low- grade fever after midnight today patient did have a elevated white count is up to 12.79 this morning she did have elevated BUN and creatinine patient did have a positive UA with urine culture has been finalized with multidrug-resistant Enterobacter patient is started on cefepime infectious disease was consulted for further management of antibiotic therapy patient is currently breathing comfortably on room air patient has been complaining of some abdominal pain and distention however not able to quantify today further no vomiting or diarrhea was reported by the nursing staff most information has been extracted from review the chart patient did have a Barnett catheter and also have a history of recurrent UTI and the patient has been taking her oral medication Past Medical History Past Medical History: Cancer, Diabetes Mellitus, Hyperlipidemia, Hypertension, Myocardial Infarction ([place]), Thyroid Disorder Additional Past Medical History / Comment(s): HX. 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 thyroidectomy, benign excisional left breast 2007 Past Anesthesia/Blood Transfusion Reactions: No Reported Reaction Past Psychological History: No Psychological Hx Reported Additional Psychological History / Comment(s): was living in [place], [place] alone in multilevel house, stays on main floor. Family helps with cleaning, laundry, shopping and taking to dr. tellez. Went to [facility] for rehab last discharge from [facility] on 04/15/22 Smoking Status: Heavy tobacco smoker Past Alcohol Use History: None Reported Past Drug Use History: None Reported - Past Family History Mother Family Medical History: Cancer Additional Family Medical History / Comment(s): OVARIAN Father Family Medical History: Myocardial Infarction ([place]) Medications and Allergies Home Medications Medication Instructions Recorded Confirmed Type Desmopressin Acetate [Ddavp] 0.3 mg PO HS 06/16/18 05/08/22 History metFORMIN HCL [Glucophage] 1,000 mg PO DAILY 06/16/18 05/08/22 History DULoxetine HCL [Cymbalta] 60 mg PO DAILY 04/10/22 05/08/22 History buPROPion XL [Wellbutrin XL] 300 mg PO DAILY 04/10/22 05/08/22 History Levothyroxine Sodium 150 mcg PO DAILY 04/18/22 05/08/22 History Omeprazole 20 mg PO DAILY 04/18/22 05/08/22 History Pramipexole [Mirapex] 0.25 mg PO HS 04/18/22 05/08/22 History Sodium Chloride Tab 1 gm PO DAILY 04/18/22 05/08/22 History Aspirin EC [Ecotrin Low Dose] 81 mg PO DAILY #1 tab 04/21/22 05/08/22 Rx Cyanocobalamin [Vitamin B-12] 1,000 mcg PO DAILY tab 04/21/22 05/08/22 Rx Tamsulosin [Flomax] 0.4 mg PO BID #60 cap 04/21/22 05/08/22 Rx INSULIN LISPRO (HumaLOG) [humaLOG] See Protocol SQ AC-TID 05/08/22 05/08/22 History Loperamide [Imodium] 2 mg PO Q6H PRN 05/08/22 05/08/22 History Nitrofurantoin Monohyd/M-Cryst 100 mg PO Q12HR 05/08/22 05/08/22 History [Macrobid] Ondansetron [Zofran] 4 mg PO Q6H PRN 05/08/22 05/08/22 History Simvastatin [Zocor] 40 mg PO HS 05/08/22 05/08/22 History cloNIDine HCL [Catapres] 0.1 mg PO DAILY PRN 05/08/22 05/08/22 History Allergies Allergy/AdvReac Type Severity Reaction Status Date / Time adhesive tape Allergy Rash/Hives Verified 05/08/22 11:38 Physical Exam Vitals: Vital Signs Temp Pulse Resp BP Pulse Ox 05/12/22 07:36 98.9 F 85 17 120/70 98 05/12/22 01:26 99.7 F H 91 18 110/63 93 L 05/11/22 20:00 90 17 05/11/22 18:07 98.7 F 90 17 110/62 97 05/11/22 14:00 98.3 F 95 19 115/66 95 Intake and Output 05/11/22 05/12/22 05/12/22 22:59 06:59 14:59 Output Total 2151 400 Balance -2151 -400 Output: Urine 2150 400 Stool 1 Other: Voiding Method Indwelling Catheter Results CBC & Chem 7: 05/12/22 06:40 05/12/22 11:14 Labs: Abnormal Lab Results - Last 24 Hours (Table) 05/11/22 05/11/22 05/11/22 Range/Units 11:36 16:45 23:54 POC Glucose (mg/dL) 129 H 114 H 179 H (70-110) mg/dL 05/12/22 05/12/22 Range/Units 05:39 07:28 POC Glucose (mg/dL) 140 H 154 H (70-110) mg/dL Microbiology - Last 24 Hours (Table) 05/08/22 11:29 Urine Culture - Final Urine,Voided Enterobacter cloacae 05/09/22 12:07 Blood Culture - Preliminary Blood No Growth after 48 hours 05/09/22 12:12 Blood Culture - Preliminary Blood No Growth after 48 hours Assessment and Plan Plan: 1patient with a multidrug-resistant positive urine culture concerning for catheter associated urinary tract infection in this patient with a history of recurrent UTI admitted to hospital abdominal distention and ileus being managed by general surgery services. 2we will repeat her UA and a culture. 3discontinue cefepime and start the patient on oral Cipro with the organism is sensitive to. We will follow on clinical condition and cultures to further adjust medication if needed Thank you for this consultation will follow this patient along with you Time with Patient: Greater than 30
[2022-05-13] MEDS: DEXTROSE 5% IN WATER 1,000 ML IV SCH (00:05)
[2022-05-13 00:09] LABS: Glucose,Whole Blood 163 mg/dL (70-110)
[2022-05-13] MEDS: INSULIN ASPART (NovoLOG) 100 UNIT/ML VIAL SQ SCH ×3 (00:09→12:54)
[2022-05-13 01:18] LABS: Appearance,Urine Turbid (Clear); Bacteria,Urine Occasional /hpf; Bilirubin,Urine Negative (Negative); Blood,Urine Moderate (Negative); Budding Yeast,Urine Moderate /hpf; Color,Urine Yellow; Glucose,Urine (UA) Negative (Negative); Ketones,Urine Negative (Negative); Leukocyte Esterase,Urine Large (Negative); Mucus,Urine Rare /hpf; Nitrite,Urine Negative (Negative); PH, Urine 5.5 (5.0-8.0); Protein,Urine 1+ (Negative); RBC,Urine 6 /hpf (0-5); Specific Gravity,Urine 1.014 (1.001-1.035); Squamous Epithelial Cell,Urine 3 /hpf (0-4); Transitional Epi Cells,Urine <1 /hpf (0-1); Urobilinogen,Urine <2.0 mg/dL (<2.0); WBC,Urine 148 /hpf (0-5)
[2022-05-13] MEDS: ACETAMINOPHEN IV (For NPO) 1,000 MG in EMPTY BAG 1 BAG IVPB PRN (02:36)
[2022-05-13 06:00] LABS: Glucose,Whole Blood 167 mg/dL (70-110)
[2022-05-13] MEDS: LEVOTHYROXINE 75 MCG TAB PO SCH (06:09)
[2022-05-13 07:50] VITALS: BP 114/53; PULSE 89; RESP 16; TEMP 98.4
--- NOTE | 2022-05-13 08:34 | P.PN ---
Progress Note - Text Progress Note Date: 05/13/22 Patient is alert oriented X 1, unable to make decisions for herself. Therefore, requires POA to make decisons for her. The impression and plan of care has been dictated as directed. : I performed a history and examination of this patient, discussed the same with the dictator. I agree with the dictator's note ,documented as a scribe. Any additional findings or plans will be noted.
[2022-05-13 08:57] LABS: Basophils # (A) 0.1 k/uL (0-0.2); Basophils % (A) 0 %; Eosinophils # (A) 0.2 k/uL (0-0.7); Eosinophils % (A) 2 %; HCT 37.2 % (34.0-46.0); HGB 11.6 gm/dL (11.4-16.0); Hypochromasia Slight; Lymphocytes # (A) 1.5 k/uL (1.0-4.8); Lymphocytes % (A) 13 %; MCH 30.2 pg (25.0-35.0); MCHC 31.3 g/dL (31.0-37.0); MCV 96.6 fL (80.0-100.0); Mean Platelet Volume 8.9; Monocytes # (A) 0.7 k/uL (0-1.0); Monocytes % (A) 6 %; Neutrophils # (A) 9.6 k/uL (1.3-7.7); Neutrophils % (A) 79 %; Platelet Count 352 k/uL (150-450); RBC 3.85 m/uL (3.80-5.40); RDW 13.8 % (11.5-15.5); WBC 12.2 k/uL (3.8-10.6)
[2022-05-13] MEDS: CYANOCOBALAMIN 500 MCG TAB PO SCH (09:31)
[2022-05-13] MEDS: CIPROFLOXACIN HCL 500 MG TAB PO SCH (09:31)
[2022-05-13] MEDS: bisacodyL 10 MG SUPP RECTAL SCH (09:33)
[2022-05-13 11:06] LABS: African American GFR (CKD) 44.2 (60.0-200.0); Anion Gap 12.4 mmol/L (10.00-18.00); BUN/Creat Ratio 22.85 Ratio (12.00-20.00); Blood Urea Nitrogen 29.7 mg/dL (9.0-27.0); Calcium 9.1 mg/dL (8.7-10.3); Carbon Dioxide 29.6 mmol/L (20.0-27.5); Non-African American GFR(CKD) 38.2 (60.0-200.0); Potassium 3.6 mmol/L (3.5-5.5)
[2022-05-13] MEDS ORDERED: MAGNESIUM SULFATE-D5W PMX 1 GM in DEXTROSE/WATER 1 100ML.BAG IVPB ONE (11:09)
--- NOTE | 2022-05-13 11:09 | P.PN ---
Subjective Progress Note Date: 05/13/22 CHIEF COMPLAINT: Ileus HISTORY OF PRESENT ILLNESS: Patient is lying in bed. She is alert and orientated to name only. She does report abdominal pain. No bowel movements reported. No nausea or vomiting. Nursing staff was unable to get rectal tube. Supplies were unavailable. They are trying to get rectal tube again today. She did have a low-grade fever of 100.5 early in the a.m. Oral intake decreased. WBC 12.2 HB 11.6 sodium 140 potassium 3.6 creatinine 1.3 magnesium 1.6 urinalysis positive for infection PHYSICAL EXAM: VITAL SIGNS: Reviewed. GENERAL: Well-developed in no acute distress. ABDOMEN: Soft. Distended. Right sided upper abdominal tenderness near old incision site. NEUROLOGIC: Alert and oriented times one name only ASSESSMENT: 1. Ileus 2. UTI 3. Acute kidney injury 4. Hypomagnesemia PLAN: -Discussed with nursing staff to have rectal tube placed -Continue to monitor -Continue clear liquid diet -Continue Dulcolax suppositories daily -Replace magnesium Physician Screw Machine Tender note has been reviewed by physician. Signing provider agrees with the documented findings, assessment, and plan of care. Objective - Vital Signs Vital signs: Vital Signs Temp 98.4 F 05/13/22 07:49 Pulse 89 05/13/22 07:55 Resp 16 05/13/22 07:55 BP 114/53 05/13/22 07:49 Pulse Ox 97 05/13/22 07:49 FiO2 Intake & Output 05/12/22 05/13/22 05/13/22 18:59 06:59 18:59 Output Total 900 700 702 Balance -900 -700 -702 Weight 81.647 kg Output: Urine 900 700 700 Stool 2 Other: Voiding Method Indwelling Catheter Indwelling Catheter - Labs CBC & Chem 7: 05/13/22 07:20 05/12/22 11:14 Labs: Abnormal Lab Results - Last 24 Hours (Table) 05/12/22 05/12/22 05/12/22 Range/Units 06:40 11:14 11:30 WBC (3.8-10.6) k/uL Neutrophils # (1.3-7.7) k/uL Sodium 152 H 149 H (135-145) mmol/L Chloride 108 H (98-107) mmol/L Carbon Dioxide 28.9 H (20.0-27.5) mmol/L BUN 33.7 H 36 H (9.0-27.0) mg/dL Creatinine 1.31 H (0.52-1.04) mg/dL Est GFR (CKD-EPI)AfAm 51.3 L (60.0-200.0) Est GFR (CKD-EPI)NonAf 44.3 L (60.0-200.0) BUN/Creatinine Ratio 29.30 H (12.00-20.00) Ratio Glucose 138 H 145 H (70-110) mg/dL POC Glucose (mg/dL) 140 H (70-110) mg/dL Urine Appearance (Clear) Urine Protein (Negative) Urine Blood (Negative) Ur Leukocyte Esterase (Negative) Urine RBC (0-5) /hpf Urine WBC (0-5) /hpf Urine WBC Clumps (None) /hpf Urine Bacteria (None) /hpf Urine Mucus (None) /hpf Urine Yeast (Budding) (None) /hpf 05/12/22 05/13/22 05/13/22 Range/Units 18:16 00:07 00:44 WBC (3.8-10.6) k/uL Neutrophils # (1.3-7.7) k/uL Sodium (135-145) mmol/L Chloride (98-107) mmol/L Carbon Dioxide (20.0-27.5) mmol/L BUN (9.0-27.0) mg/dL Creatinine (0.52-1.04) mg/dL Est GFR (CKD-EPI)AfAm (60.0-200.0) Est GFR (CKD-EPI)NonAf (60.0-200.0) BUN/Creatinine Ratio (12.00-20.00) Ratio Glucose (70-110) mg/dL POC Glucose (mg/dL) 150 H 163 H (70-110) mg/dL Urine Appearance Turbid H (Clear) Urine Protein 1+ H (Negative) Urine Blood Moderate H (Negative) Ur Leukocyte Esterase Large H (Negative) Urine RBC 6 H (0-5) /hpf Urine WBC 148 H (0-5) /hpf Urine WBC Clumps Many H (None) /hpf Urine Bacteria Occasional H (None) /hpf Urine Mucus Rare H (None) /hpf Urine Yeast (Budding) Moderate H (None) /hpf 05/13/22 05/13/22 Range/Units 05:57 07:20 WBC 12.2 H (3.8-10.6) k/uL Neutrophils # 9.6 H (1.3-7.7) k/uL Sodium (135-145) mmol/L Chloride (98-107) mmol/L Carbon Dioxide (20.0-27.5) mmol/L BUN (9.0-27.0) mg/dL Creatinine (0.52-1.04) mg/dL Est GFR (CKD-EPI)AfAm (60.0-200.0) Est GFR (CKD-EPI)NonAf (60.0-200.0) BUN/Creatinine Ratio (12.00-20.00) Ratio Glucose (70-110) mg/dL POC Glucose (mg/dL) 167 H (70-110) mg/dL Urine Appearance (Clear) Urine Protein (Negative) Urine Blood (Negative) Ur Leukocyte Esterase (Negative) Urine RBC (0-5) /hpf Urine WBC (0-5) /hpf Urine WBC Clumps (None) /hpf Urine Bacteria (None) /hpf Urine Mucus (None) /hpf Urine Yeast (Budding) (None) /hpf Microbiology - Last 24 Hours (Table) 05/13/22 00:44 Urine Culture - Preliminary Urine,Voided 05/09/22 12:12 Blood Culture - Preliminary Blood No Growth after 72 hours 05/09/22 12:07 Blood Culture - Preliminary Blood No Growth after 72 hours
[2022-05-13 11:15] LABS: Glucose,Whole Blood 160 mg/dL (70-110)
--- NOTE | 2022-05-13 11:22 | P.DS ---
Providers Date of admission: 05/08/22 13:17 Expected date of discharge: 05/13/22 Attending physician: Thee Jane MD Consults: 05/08/22 13:12 Consult Physician Urgent Consulting Provider: Aureliano Chandler Consult Reason/Comments: Ileus Do you want consulting provider notified?: Yes 05/08/22 13:14 Consult to Palliative Care Stat Consulting Provider: Betty Poole Consult Reason/Comments: Emotional support for family and pt, discuss comfort options Do you want consulting provider notified?: Yes 05/09/22 17:26 Consult Physician Routine Consulting Provider: Cassandra Campos Consult Reason/Comments: Renal failure Do you want consulting provider notified?: Yes 05/12/22 06:00 Consult Physician Urgent Consulting Provider: Akin Patel Consult Reason/Comments: Positive urine cultures Do you want consulting provider notified?: Yes, Notify in am Primary care physician: Physician Nonstaff Hospital Course: Final Diagnoses: Abdominal pain, CT suggesting 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 surgery following-conservative management Acute recurrent UTI,Enterobacter clocae Acute renal failure, baseline creatinine 0.9. Acute urinary retention, Barnett catheter Acute metabolic encephalopathy secondary to the above Hypernatremia Recent frequent admissions secondary to frequent falls, profound hypothyroidism, bradycardia Dementia. Suspected small vessel disease, possible chronic bilateral basal ganglia elected or infarct as per neurology's previous workup. Anxiety, depression Hypothyroidism, recently discovered with profound hypothyroidism, dose had been increased Diabetes insipidus, on desmopressin Diabetes mellitus type 2, A1c 7.3 Anxiety, depression No code, no CPR, no intubation Hospital course:This is an 82-year-old female recently discharged with acute UTI, mental status changes in a patient with PMH of recent falls , acute UTI cystitis ,diabetes insipidus, hypothyroidism, diabetes, hyperlipidemia and dep ression, transferred from the [facility] rehab to the hospital with complaints of abdominal pain, significant distention, nausea, vomiting , increased confusion and multiple other medical issues. Patient unable to provide information, lethargic, continues to fall back asleep. Daughter Laurel via telephone reported that patient was found Thursday on the floor, Thursday confusion worsened and by Thursday patient was complaining of abdominal pain. Reports in March her mom is independent, driving, performing all ADLs, sustained a few falls, continued to decline since. She has not been walking, no longer feeding herself, not taking her medications. Family feels that her quality of life is missing and requesting hospice consult. CT reported diffuse gastric prominence, air-fluid levels throughout small and large bowel loops with greater distention of colonic loops noted. 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 Blood sugars controlled.Chloride 108, bicarb 30, BUN 36, creatinine 1.3. Conservative management as per general surgery. Received suppository yesterday with small liquid stool/flatus. Reports positive abdominal pain. Maintained on IV fluid hydration, antibiotics. Urine culture reporting Enterobacter Cloacae, antibiotics adjusted, and ID consulted. T-max 99.7, WBC increased to 12.79. Tolerating clear liquid diet with no nausea or vomiting. 05/13/2022 encephalopathic, with underlying dementia, unable to make decisions for herself. Therefore requires decision-making as per medical DPOA. Family has chosen to proceed with discharge to [facility] today. Patient will be discharged to [facility] today in a stable condition with guarded prognosis. The impression and plan of care has been dictated as directed. : I performed a history and examination of this patient, discussed the same with the dictator. I agree with the dictator's note ,documented as a scribe. Any additional findings or plans will be noted. Patient Condition at Discharge: Stable Plan - Discharge Summary Discharge Rx Participant: No New Discharge Prescriptions: New Ciprofloxacin HCl [Cipro] 500 mg PO BID #10 tab bisacodyL [Dulcolax] 10 mg RECTAL DAILY suppositor Continue Desmopressin Acetate [Ddavp] 0.3 mg PO HS buPROPion XL [Wellbutrin XL] 300 mg PO DAILY DULoxetine HCL [Cymbalta] 60 mg PO DAILY Omeprazole 20 mg PO DAILY Tamsulosin [Flomax] 0.4 mg PO BID #60 cap Pramipexole [Mirapex] 0.25 mg PO HS Levothyroxine Sodium 150 mcg PO DAILY INSULIN LISPRO (HumaLOG) [humaLOG] See Protocol SQ AC-TID Discontinued metFORMIN HCL [Glucophage] 1,000 mg PO DAILY Aspirin EC [Ecotrin Low Dose] 81 mg PO DAILY #1 tab Simvastatin [Zocor] 40 mg PO HS Nitrofurantoin Monohyd/M-Cryst [Macrobid] 100 mg PO Q12HR cloNIDine HCL [Catapres] 0.1 mg PO DAILY PRN PRN Reason: HTN Cyanocobalamin [Vitamin B-12] 1,000 mcg PO DAILY tab Loperamide [Imodium] 2 mg PO Q6H PRN PRN Reason: Diarrhea No Action Sodium Chloride Tab 1 gm PO DAILY Ondansetron [Zofran] 4 mg PO Q6H PRN PRN Reason: Nausea And Vomiting Discharge Medication List Desmopressin Acetate [Ddavp] 0.3 mg PO HS 06/16/18 [History] DULoxetine HCL [Cymbalta] 60 mg PO DAILY 04/10/22 [History] buPROPion XL [Wellbutrin XL] 300 mg PO DAILY 04/10/22 [History] Levothyroxine Sodium 150 mcg PO DAILY 04/18/22 [History] Omeprazole 20 mg PO DAILY 04/18/22 [History] Pramipexole [Mirapex] 0.25 mg PO HS 04/18/22 [History] Sodium Chloride Tab 1 gm PO DAILY 04/18/22 [History] Tamsulosin [Flomax] 0.4 mg PO BID #60 cap 04/21/22 [Rx] INSULIN LISPRO (HumaLOG) [humaLOG] See Protocol SQ AC-TID 05/08/22 [History] Ondansetron [Zofran] 4 mg PO Q6H PRN 05/08/22 [History] Ciprofloxacin HCl [Cipro] 500 mg PO BID #10 tab 05/13/22 [Rx] bisacodyL [Dulcolax] 10 mg RECTAL DAILY suppositor 05/13/22 [Rx] Follow up Appointment(s)/Referral(s): Thee Jane MD [STAFF PHYSICIAN] - As Needed Activity/Diet/Wound Care/Special Instructions: [facility] Discharge Disposition: HOME WITH HOSPICE
[2022-05-13] MEDS ORDERED: POTASSIUM CHLORIDE ER 20 MEQ TAB.ER PO STA (11:40)
--- NOTE | 2022-05-13 12:28 | P.PN ---
Subjective Patient is seen in follow-up for acute kidney injury. Renal function stable. She is currently on D5W for hypernatremia. Has a Barnett catheter. Nonoliguric. Blood pressure stable. Patient is not a reliable historian. Sodium level stable. Vital signs are stable. General: Awake. No acute distress. HEENT: Head exam is unremarkable. LUNGS: Breath sounds decreased. HEART: Rate and Rhythm are regular. ABDOMEN: Soft, no distention. Nontender. EXTREMITITES: No edema. Objective - Vital Signs Vital signs: Vital Signs Temp 98.4 F 05/13/22 07:49 Pulse 89 05/13/22 07:55 Resp 16 05/13/22 07:55 BP 114/53 05/13/22 07:49 Pulse Ox 97 05/13/22 07:49 FiO2 Intake & Output 05/12/22 05/13/22 05/13/22 18:59 06:59 18:59 Output Total 900 700 702 Balance -900 -700 -702 Weight 81.647 kg Output: Urine 900 700 700 Stool 2 Other: Voiding Method Indwelling Catheter Indwelling Catheter - Labs CBC & Chem 7: 05/13/22 07:20 05/13/22 07:20 Labs: Abnormal Lab Results - Last 24 Hours (Table) 05/12/22 05/13/22 05/13/22 Range/Units 18:16 00:07 00:44 WBC (3.8-10.6) k/uL Neutrophils # (1.3-7.7) k/uL Sodium (135-145) mmol/L Carbon Dioxide (20.0-27.5) mmol/L BUN (9.0-27.0) mg/dL Est GFR (CKD-EPI)AfAm (60.0-200.0) Est GFR (CKD-EPI)NonAf (60.0-200.0) BUN/Creatinine Ratio (12.00-20.00) Ratio Glucose (70-110) mg/dL POC Glucose (mg/dL) 150 H 163 H (70-110) mg/dL Urine Appearance Turbid H (Clear) Urine Protein 1+ H (Negative) Urine Blood Moderate H (Negative) Ur Leukocyte Esterase Large H (Negative) Urine RBC 6 H (0-5) /hpf Urine WBC 148 H (0-5) /hpf Urine WBC Clumps Many H (None) /hpf Urine Bacteria Occasional H (None) /hpf Urine Mucus Rare H (None) /hpf Urine Yeast (Budding) Moderate H (None) /hpf 05/13/22 05/13/22 05/13/22 Range/Units 05:57 07:20 07:20 WBC 12.2 H (3.8-10.6) k/uL Neutrophils # 9.6 H (1.3-7.7) k/uL Sodium 149 H (135-145) mmol/L Carbon Dioxide 29.6 H (20.0-27.5) mmol/L BUN 29.7 H (9.0-27.0) mg/dL Est GFR (CKD-EPI)AfAm 44.2 L (60.0-200.0) Est GFR (CKD-EPI)NonAf 38.2 L (60.0-200.0) BUN/Creatinine Ratio 22.85 H (12.00-20.00) Ratio Glucose 170 H (70-110) mg/dL POC Glucose (mg/dL) 167 H (70-110) mg/dL Urine Appearance (Clear) Urine Protein (Negative) Urine Blood (Negative) Ur Leukocyte Esterase (Negative) Urine RBC (0-5) /hpf Urine WBC (0-5) /hpf Urine WBC Clumps (None) /hpf Urine Bacteria (None) /hpf Urine Mucus (None) /hpf Urine Yeast (Budding) (None) /hpf 05/13/22 Range/Units 11:14 WBC (3.8-10.6) k/uL Neutrophils # (1.3-7.7) k/uL Sodium (135-145) mmol/L Carbon Dioxide (20.0-27.5) mmol/L BUN (9.0-27.0) mg/dL Est GFR (CKD-EPI)AfAm (60.0-200.0) Est GFR (CKD-EPI)NonAf (60.0-200.0) BUN/Creatinine Ratio (12.00-20.00) Ratio Glucose (70-110) mg/dL POC Glucose (mg/dL) 160 H (70-110) mg/dL Urine Appearance (Clear) Urine Protein (Negative) Urine Blood (Negative) Ur Leukocyte Esterase (Negative) Urine RBC (0-5) /hpf Urine WBC (0-5) /hpf Urine WBC Clumps (None) /hpf Urine Bacteria (None) /hpf Urine Mucus (None) /hpf Urine Yeast (Budding) (None) /hpf Microbiology - Last 24 Hours (Table) 05/13/22 00:44 Urine Culture - Preliminary Urine,Voided 05/09/22 12:12 Blood Culture - Preliminary Blood No Growth after 72 hours 05/09/22 12:07 Blood Culture - Preliminary Blood No Growth after 72 hours Assessment and Plan Plan: Assessment: 1. Acute kidney injury mostly prerenal from poor intake. Creatinine peaked at 2.8 this admission and is 1.3 today. Baseline creatinine near 1. No hydronep hrosis noted on CAT scan. 2. Ileus. On clear liquid diet. 3. Hypernatremia from lack full water intake. On D5W. 4. Enterobacter UTI on antibiotics. 5. Diabetes mellitus. Plan: Maintain D5W. Patient will be going home on hospice today. I will sign off.
--- NOTE | 2022-05-13 12:47 | P.PN ---
Subjective Progress Note Date: 05/13/22 Principal diagnosis: AMS, MANUEL, Ileus The patient is an 82 year-old female with PMH of diabetes, hypothyroidism, diabetes, hyperlipidemia, AL, and depression. She presented to the emergency department on 05/08/22 with complaints of abdominal pain and distention. Patient brought by EMS from [facility] in [place]. Patient was here 2 days ago for altered mental status and diagnosed with a UTI. Over the last day, the patient has been complaining of abdominal pain and the staff at [facility] has noted abdominal distention. She has also been vomiting. She denied any fevers, chills, sore throat, cough, dyspnea, chest pain, palpitations, diarrhea, back pain, or headaches.H [id number] was with her in the emergency department and stated that approximately one month ago, she was cognitively intact, driving, walking around, and caring for herself independently. Her mental status has a drastic decline since then. Her daughter would like to discuss hospice placeme nt due to this severe decline and in order to keep the patient comfortable. However, they would like to proceed with general medical treatment for the meantime in the event she is able to improve. 05/09 The patient is resting in bed. She is lethargic and answers questions intermittently. She does follow commands. Met with the patient's son, Ashvin, and daughter in-law, Esme. Palliative care and hospice philosophies and services explained in detail. They are concerned at the patient's quick decline. She was completely independent and lived alone until she fell at home in the beginning of March. Both her mental and physical status has declined significantly. She had even stopped taking her medication. She was sent to a [facility] following her fall, and has had several hospital re-admissions since. The family believes that she would not want to keep coming back and forth to the hospital and would want comfort care. They are interested in the [facility]. Referral sent and spoke directly to patient liaisonNathalia. Objective - Vital Signs Vital signs: Vital Signs Temp 98.4 F 05/13/22 07:49 Pulse 89 05/13/22 07:55 Resp 16 05/13/22 07:55 BP 114/53 05/13/22 07:49 Pulse Ox 97 05/13/22 07:49 FiO2 Intake & Output 05/12/22 05/13/22 05/13/22 18:59 06:59 18:59 Output Total 900 700 702 Balance -900 -700 -702 Weight 81.647 kg Output: Urine 900 700 700 Stool 2 Other: Voiding Method Indwelling Catheter Indwelling Catheter - Exam General: Well developed, well nourished. No acute distress. Chronically ill appearing. HEENT: Head is atraumatic, normocephalic. Sclerae are clear. Pupils equal, round and reactive to light bilaterally. Mucus membranes moist. CV: Heart regular in rate and rhythm positive S1 and S2. No clicks, rubs or murmurs. Peripheral pulses equal. 2/4 Lungs: Clear to auscultation bilaterally. No wheezes rales or rhonchi. Respirations even and nonlabored. On 2L O2 via NC Abdomen/GI: Distended, soft. Hypoactive bowel sounds present.. + abdominal tenderness. : Nicole catheter present with clear yellow urine Musculoskeletal/ Extremities: WILSON, no joint deformity or swelling. No gross atrophy. + generalized weakness Vascular: Radial pulses equal. 2/4. + 1 B/L LE edema Skin: Warm and dry, No rash or lesions. Neurologic: Awake. Orientd to person only. Speech difficult to understand. Obeys some commands. Psychiatric: Unable to assess, refuses to answer questions - Labs CBC & Chem 7: 05/13/22 07:20 05/13/22 07:20 Labs: Abnormal Lab Results - Last 24 Hours (Table) 05/12/22 05/13/22 05/13/22 Range/Units 18:16 00:07 00:44 WBC (3.8-10.6) k/uL Neutrophils # (1.3-7.7) k/uL Sodium (135-145) mmol/L Carbon Dioxide (20.0-27.5) mmol/L BUN (9.0-27.0) mg/dL Est GFR (CKD-EPI)AfAm (60.0-200.0) Est GFR (CKD-EPI)NonAf (60.0-200.0) BUN/Creatinine Ratio (12.00-20.00) Ratio Glucose (70-110) mg/dL POC Glucose (mg/dL) 150 H 163 H (70-110) mg/dL Urine Appearance Turbid H (Clear) Urine Protein 1+ H (Negative) Urine Blood Moderate H (Negative) Ur Leukocyte Esterase Large H (Negative) Urine RBC 6 H (0-5) /hpf Urine WBC 148 H (0-5) /hpf Urine WBC Clumps Many H (None) /hpf Urine Bacteria Occasional H (None) /hpf Urine Mucus Rare H (None) /hpf Urine Yeast (Budding) Moderate H (None) /hpf 05/13/22 05/13/22 05/13/22 Range/Units 05:57 07:20 07:20 WBC 12.2 H (3.8-10.6) k/uL Neutrophils # 9.6 H (1.3-7.7) k/uL Sodium 149 H (135-145) mmol/L Carbon Dioxide 29.6 H (20.0-27.5) mmol/L BUN 29.7 H (9.0-27.0) mg/dL Est GFR (CKD-EPI)AfAm 44.2 L (60.0-200.0) Est GFR (CKD-EPI)NonAf 38.2 L (60.0-200.0) BUN/Creatinine Ratio 22.85 H (12.00-20.00) Ratio Glucose 170 H (70-110) mg/dL POC Glucose (mg/dL) 167 H (70-110) mg/dL Urine Appearance (Clear) Urine Protein (Negative) Urine Blood (Negative) Ur Leukocyte Esterase (Negative) Urine RBC (0-5) /hpf Urine WBC (0-5) /hpf Urine WBC Clumps (None) /hpf Urine Bacteria (None) /hpf Urine Mucus (None) /hpf Urine Yeast (Budding) (None) /hpf 05/13/22 Range/Units 11:14 WBC (3.8-10.6) k/uL Neutrophils # (1.3-7.7) k/uL Sodium (135-145) mmol/L Carbon Dioxide (20.0-27.5) mmol/L BUN (9.0-27.0) mg/dL Est GFR (CKD-EPI)AfAm (60.0-200.0) Est GFR (CKD-EPI)NonAf (60.0-200.0) BUN/Creatinine Ratio (12.00-20.00) Ratio Glucose (70-110) mg/dL POC Glucose (mg/dL) 160 H (70-110) mg/dL Urine Appearance (Clear) Urine Protein (Negative) Urine Blood (Negative) Ur Leukocyte Esterase (Negative) Urine RBC (0-5) /hpf Urine WBC (0-5) /hpf Urine WBC Clumps (None) /hpf Urine Bacteria (None) /hpf Urine Mucus (None) /hpf Urine Yeast (Budding) (None) /hpf Microbiology - Last 24 Hours (Table) 05/13/22 00:44 Urine Culture - Preliminary Urine,Voided 05/09/22 12:12 Blood Culture - Preliminary Blood No Growth after 72 hours 05/09/22 12:07 Blood Culture - Preliminary Blood No Growth after 72 hours Assessment and Plan Assessment: Symptoms * Pain - + abdominal pain, continue Ofirmev and Morphine * Fatigue - + generalized weakness and fatigue * SOB - No * Insomnia - No * N/V - Yes, continue Zofran prn * Anxiety - No * Depression - No * Confusion - Yes * Agitation - No * Hallucinations - No * Appetite/weight loss - Decreased appetite, no recent weight loss, continue clear liquid diet * Dysphagia - No * Constipation - Yes, RN reports 1 small liquid BM over the weekend. Continue Dulcolax daily - per surgery * Incontinence - Yes, nicole catheter in place * Itch - No Plan: Summary/Goals - Patient more awake this morning. She is also talking a bit more. She is oriented to person only. She thinks she is in a private home in [facility]. She does not know why she is here or the date. She c/o mild abdominal pain. Her abdomen is soft, but more distended than yesterday. She is to be discharged to [facility] today. Family aware. Recommendations - [facility] Advanced Directives - None on file Code Status - DNR Thank you for this consult Betty Poole [facility] Palliative Care Spect[place]ink [id number] Email: [email or web address] Time with Patient: Less than 30
== END 2022-05-13 13:33 | disposition hospice, inpatient (51) | DRG 682 ==
LOC: EC 11:00 → 4SSUR 13:17
PROVIDERS: ADMIT Family Medicine; ATTEND Family Medicine
DX: N17.9 Acute kidney failure, unspecified (principal); G93.41 Metabolic encephalopathy; K56.7 Ileus, unspecified; B37.49 Other urogenital candidiasis; E23.2 Diabetes insipidus; Z16.24 Resistance to multiple antibiotics; B95.2 Enterococcus as the cause of diseases classified elsewhere; R33.8 Other retention of urine; B96.89 Other specified bacterial agents as the cause of diseases classified elsewhere; E11.9 Type 2 diabetes mellitus without complications; E78.5 Hyperlipidemia, unspecified; E89.0 Postprocedural hypothyroidism; E83.42 Hypomagnesemia; R32 Unspecified urinary incontinence; F03.90 Unspecified dementia, unspecified severity, without behavioral disturbance, psychotic disturbance, mood disturbance, and anxiety; F17.210 Nicotine dependence, cigarettes, uncomplicated; F32.A Depression, unspecified; F41.9 Anxiety disorder, unspecified; I10 Essential (primary) hypertension; I25.10 Atherosclerotic heart disease of native coronary artery without angina pectoris; I25.2 Old myocardial infarction; Z51.5 Encounter for palliative care; Z79.82 Long term (current) use of aspirin; Z79.84 Long term (current) use of oral hypoglycemic drugs; Z79.890 Hormone replacement therapy; Z79.899 Other long term (current) drug therapy; Z85.818 Personal history of malignant neoplasm of other sites of lip, oral cavity, and pharynx; Z85.858 Personal history of malignant neoplasm of other endocrine glands; Z87.440 Personal history of urinary (tract) infections; Z90.49 Acquired absence of other specified parts of digestive tract; Z90.710 Acquired absence of both cervix and uterus; Z91.048 Other nonmedicinal substance allergy status; Z79.4 Long term (current) use of insulin
CPT/HCPCS: 36415; 74177; 80048; 80053; 81001; 82140; 82150; 83036; 83605; 83690; 83735; 84439; 84443; 85025; 87040; 87077; 87086; 87186; 96360; 96361; 99285